=== PATIENT | male | born 1945 | race Caucasian/White ===

== ENCOUNTER 2021-08-12 02:47 | Observation (INO) | payer MEDICARE ==
--- NOTE | 2021-08-12 03:22 | ED ---
Back Pain HPI - General Chief Complaint: Back Pain/Injury Stated Complaint: Back pain Time Seen by Provider: 08/12/21 03:04 Source: patient, RN notes reviewed - History of Present Illness Initial Comments: This is a pleasant 76-year-old male presents to the emergency department complaining of left low back and hip pain which radiates into the left leg. This going on for over one month. Patient was initially seen at [facility] and a computed tomography scan and plain x-rays were ordered. He states that they apparently thought the prominence in the area. Patient was given a course of corticosteroids. Patient states she was on those for 3 days then became disoriented and had blood sugars in the 600s. Patient was taken back to [facility]. Patient states this was squared away but now he still has the pain in his left low back radiating into left leg. Patient states it seems to wrap around the leg is related to movement, alleviated by rest. Patient has been taking hydrocodone/acetaminophen, 7.5/325 at home. He states he was given this by the orthopedic PA at orthopedic [facility]. Patient had an evaluation there. It was felt that the patient's pain was due to lumbar radiculopathy. Has an appointment for an MRI on . He has an appointment with Dr. Kingsley on Friday. Patient previously has had back surgery by Dr. Kingsley. Patient is able to ambulate with a walker. He denies any pounds of balance urination. Eating and drinking normally. No fever. No direct trauma. Patient states that the pain became worse over the past few days. Patient st ates that the pain medication at home didn't seem to be controlling it. No headache, no fever or chills, no changes in vision or hearing, no sore throat or difficulty with speech, no neck pain, no chest pain or shortness of breath, no abdominal pain, no nausea or vomiting, no changes in urination or bowel movements, no numbness or tingling, no extremity pain, no skin rashes or lesions . MD Complaint: back pain - Related Data Home Medications Medication Instructions Recorded Confirmed Multivitamin [Men's Multi-Vitamin] 1 tab PO DAILY 08/12/13 08/12/21 Ascorbic Acid [Vitamin C] 1,000 mg PO DAILY 08/12/21 08/12/21 HYDROcodone/APAP 7.5-325MG [[place] 1 tab PO Q6H PRN 08/12/21 08/12/21 7.5-325] Insulin Aspart [NovoLOG Flexpen] See Protocol SQ AC-TID 08/12/21 08/12/21 Insulin Glargine,Hum.rec.anlog 6 unit SQ HS 08/12/21 08/12/21 [Lantus Solostar Pen] glipiZIDE XL [Glucotrol Xl] 10 mg PO BID 08/12/21 08/12/21 metFORMIN HCL [Glucophage] 500 mg PO TID 08/12/21 08/12/21 Allergies Allergy/AdvReac Type Severity Reaction Status Date / Time No Known Allergies Allergy Verified 08/12/21 12:39 Review of Systems ROS Statement: Those systems with pertinent positive or pertinent negative responses have been documented in the HPI. ROS Other: All systems not noted in ROS Statement are negative. Past Medical History Past Medical History: Asthma, Coronary Artery Disease (CAD), CVA/TIA, Diabetes Mellitus, Hyperlipidemia, Hypertension, Myocardial Infarction ([place]), Syncope Additional Past Medical History / Comment(s): Possible Tia Last Myocardial Infarction Date:: PT STATES DR CHUN THINKS HE HAD A RECENT [place] History of Any Multi-Drug Resistant Organisms: None Reported Past Surgical History: Back Surgery, Heart Catheterization With Stent Additional Past Surgical History / Comment(s): Metal Jerzy in Back Past Anesthesia/Blood Transfusion Reactions: No Reported Reaction Date of Last Stent Placement:: 08/13/2013 Past Psychological History: No Psychological Hx Reported Past Alcohol Use History: None Reported Past Drug Use History: None Reported - Past Family History Father Family Medical History: AICD/Pacemaker, Congestive Heart Failure (CHF) General Exam - General Exam Comments Initial Comments: Patient no significant distress at the time I am seeing him. It does not appear to be ill or toxic. General appearance: alert, in no apparent distress Head exam: Present: atraumatic, normocephalic, normal inspection Eye exam: Present: normal appearance, PERRL, EOMI. Absent: scleral icterus, conjunctival injection, periorbital swelling ENT exam: Present: normal exam, normal oropharynx, mucous membranes moist Neck exam: Present: normal inspection, full ROM. Absent: tenderness, meningismus, lymphadenopathy Respiratory exam: Present: normal lung sounds bilaterally. Absent: respiratory distress, wheezes, rales, rhonchi, stridor, chest wall tenderness, accessory muscle use Cardiovascular Exam: Present: regular rate, normal rhythm, normal heart sounds. Absent: systolic murmur, diastolic murmur, rubs, gallop, clicks GI/Abdominal exam: Present: soft, normal bowel sounds. Absent: distended, tenderness, guarding, rebound, rigid Extremities exam: Present: normal inspection, full ROM, normal capillary refill, other (No evidence of vascular insult. Pulses are intact. Capillary refill is normal.). Absent: tenderness, pedal edema, joint swelling, calf tenderness Back exam: Present: normal inspection, tenderness (Minimal left lumbar paraspinal tenderness. No erythema. No break in skin integrity. No rash or lesion.), paraspinal tenderness, other (Straight leg raise is positive at 30 on the left. DTRs are intact. Great toe extensor strength intact.). Absent: full ROM (Range of motion limited by pain.), CVA tenderness (R), CVA tenderness (L), muscle spasm, vertebral tenderness, rash noted Neurological exam: Present: alert, oriented X3, CN II-XII intact, reflexes normal, other. Absent: motor sensory deficit Psychiatric exam: Present: normal affect, normal mood Skin exam: Present: warm, dry, intact, normal color. Absent: rash, cyanosis, diaphoretic, erythema, urticaria, vesicles, petechiae, pallor, mottled, abrasion, other Course Vital Signs 08/12/21 08/12/21 02:56 04:00 Temperature 98.0 F Pulse Rate 101 H 79 Respiratory 20 18 Rate Blood Pressure 194/96 184/77 O2 Sat by Pulse 94 L 98 Oximetry Medical Decision Making - Medical Decision Making Patient septostomy most consistent with left lumbar radiculopathy, seems to be in the L4 dermatome. Sensation is intact. Patient has no saddle anesthesia. Rectal tone is adequate. Patient is able to ambulate with discomfort. Straight leg raise positive at 30 on the left. It seems as if the patient has had quite an extensive workup to include a computed tomography scan and plain film x-rays done at [facility]. Subsequently, [facility] and has an upcoming appointment on Friday with Dr. Kingsley. Patient has an MRI scheduled for Friday. Patient requesting pain control. Does not appear to be consistent with infectious etiology or cauda equina syndrome. Given the findings and presentation. I do not believe imaging is indicated at this time. the patient was given 15 mg of morphine and 4 mg of Zofran en route via EMS. Patient endorsed to the ED attending physician at 4 AM for further evaluation and disposition - Lab Data Result diagrams: 08/12/21 03:33 08/12/21 03:33 Lab Results 08/12/21 08/12/21 08/12/21 Range/Units 03:33 03:33 03:33 WBC 6.9 (3.8-10.6) k/uL RBC 3.91 L (4.30-5.90) m/uL Hgb 11.7 L (13.0-17.5) gm/dL Hct 37.7 L (39.0-53.0) % MCV 96.4 (80.0-100.0) fL MCH 30.0 (25.0-35.0) pg MCHC 31.1 (31.0-37.0) g/dL RDW 12.5 (11.5-15.5) % Plt Count 235 (150-450) k/uL MPV 7.5 Neutrophils % 80 % Lymphocytes % 12 % Monocytes % 5 % Eosinophils % 1 % Basophils % 1 % Neutrophils # 5.6 (1.3-7.7) k/uL Lymphocytes # 0.8 L (1.0-4.8) k/uL Monocytes # 0.4 (0-1.0) k/uL Eosinophils # 0.1 (0-0.7) k/uL Basophils # 0.0 (0-0.2) k/uL ESR 96 H (0-15) mm/hr Sodium 134 L (137-145) mmol/L Potassium 4.7 (3.5-5.1) mmol/L Chloride 102 (98-107) mmol/L Carbon Dioxide 28 (22-30) mmol/L Anion Gap 4 mmol/L BUN 21 H (9-20) mg/dL Creatinine 0.74 (0.66-1.25) mg/dL Est GFR (CKD-EPI)AfAm >90 (>60 ml/min/1.73 sqM) Est GFR (CKD-EPI)NonAf 89 (>60 ml/min/1.73 sqM) Glucose 252 H (74-99) mg/dL Estimated Ave Glu mg/dL [facility] Hemoglobin A1c CANCELED % Calcium 7.8 L (8.4-10.2) mg/dL Total Bilirubin 0.4 (0.2-1.3) mg/dL AST 22 (17-59) U/L ALT 19 (4-49) U/L Alkaline Phosphatase 69 (38-126) U/L C-Reactive Protein 12.0 H (<1.0) mg/dL Total Protein 6.5 (6.3-8.2) g/dL Albumin 3.2 L (3.5-5.0) g/dL Disposition Clinical Impression: Acute low back pain, Lumbar radiculopathy, Debilitated patient Disposition: ADMITTED IP TO THIS HOSP
[2021-08-12 03:52] LABS: Basophils % (A) 1 %; Eosinophils # (A) 0.1 k/uL (0-0.7); Eosinophils % (A) 1 %; HCT 37.7 % (39.0-53.0); HGB 11.7 gm/dL (13.0-17.5); Lymphocytes # (A) 0.8 k/uL (1.0-4.8); Lymphocytes % (A) 12 %; MCHC 31.1 g/dL (31.0-37.0); MCV 96.4 fL (80.0-100.0); Mean Platelet Volume 7.5; Monocytes # (A) 0.4 k/uL (0-1.0); Monocytes % (A) 5 %; Neutrophils # (A) 5.6 k/uL (1.3-7.7); Neutrophils % (A) 80 %; Platelet Count 235 k/uL (150-450); RBC 3.91 m/uL (4.30-5.90); RDW 12.5 % (11.5-15.5); WBC 6.9 k/uL (3.8-10.6)
[2021-08-12 04:33] LABS: ALT 19 U/L (4-49); AST 22 U/L (17-59); African American GFR (CKD) >90 (>60 ml/min/1.73 sqM); Albumin 3.2 g/dL (3.5-5.0); Alkaline Phosphatase 69 U/L (38-126); Anion Gap 4 mmol/L; Blood Urea Nitrogen 21 mg/dL (9-20); Calcium 7.8 mg/dL (8.4-10.2); Carbon Dioxide 28 mmol/L (22-30); Chloride 102 mmol/L (98-107); Glucose 252 mg/dL (74-99); Non-African American GFR(CKD) 89 (>60 ml/min/1.73 sqM); Potassium 4.7 mmol/L (3.5-5.1); Sodium 134 mmol/L (137-145); Total Bilirubin 0.4 mg/dL (0.2-1.3); Total Protein 6.5 g/dL (6.3-8.2)
[2021-08-12 04:51] LABS: Erythrocyte Sedimentation Rate 96 mm/hr (0-15)
[2021-08-12] MEDS ORDERED: NALOXONE 0.4 MG/ML 1 ML VIAL IV PRN ×2 (05:42→12:01)
[2021-08-12] MEDS ORDERED: ACETAMINOPHEN TAB 325 MG TAB PO PRN (05:42)
[2021-08-12] MEDS ORDERED: ONDANSETRON 4 MG/2 ML VIAL IVP PRN (05:42)
[2021-08-12] MEDS ORDERED: ALBUTEROL NEBULIZED 2.5 MG/3 ML INHALATION PRN (05:48)
[2021-08-12] MEDS: MORPHINE SULFATE 4 MG/ML SYRINGE IV PRN ×3 (07:06→22:46)
[2021-08-12 07:38] LABS: Glucose,Whole Blood 269 mg/dL (75-99)
[2021-08-12] MEDS: METOPROLOL TARTRATE 25 MG TAB PO SCH (09:04)
[2021-08-12] MEDS: ASPIRIN 81 MG PO SCH (09:04)
[2021-08-12] MEDS: CLOPIDOGREL 75 MG TAB PO SCH (09:04)
[2021-08-12] MEDS: metFORMIN 500 MG TAB PO SCH ×2 (09:04→22:09)
[2021-08-12 12:00] LABS: Glucose,Whole Blood 233 mg/dL (75-99)
--- NOTE | 2021-08-12 12:16 | P.HPIM ---
History of Present Illness H&P Date: 08/12/21 Chief Complaint: back pain 76-year-old male presents to the emergency department complaining of worsening left low back and hip pain which radiates into the left leg. This has been going on for over one month. Patient was initially seen at [facility] and a computed tomography scan and plain x-rays were ordered. Patient was given a course of corticosteroids subsequently. Patient states he was on those for 3 days then became disoriented and had blood sugars in the 600s. Patient states pain seems to wrap around the leg is related to movement, alleviated by rest. Patient has been taking hydrocodone/acetaminophen, 7.5/325 at home. He states he was given this by the orthopedic PA at orthopedic [facility]. Patient had an evaluation there. It was felt that the patient's pain was due to lumbar radiculopathy. Has an appointment for an MRI on Friday. He also has an appointment with Dr. Kingsley on Friday. Patient previously has had back surgery by Dr. Kingsley in 2008. States that he started to need a walker to ambulate. No urinary retention or incontinence, no stool incontinence. No fever. No hx of trauma. No headache, no fever or chills, no changes in vision or hearing, no sore throat or difficulty with speech, no neck pain, no chest pain or shortness of breath, no abdominal pain, no nausea or vomiting, no changes in urination or bowel movements, no numbness or tingling, no extremity pain, no skin rashes or lesions. Review of Systems complete review of system was performed, negative except for what is stated in HPI Past Medical History Past Medical History: Asthma, Coronary Artery Disease (CAD), CVA/TIA, Diabetes Mellitus, Hyperlipidemia, Hypertension, Myocardial Infarction ([place]), Syncope Additional Past Medical History / Comment(s): Possible Tia Last Myocardial Infarction Date:: PT STATES DR CHUN THINKS HE HAD A RECENT [place] History of Any Multi-Drug Resistant Organisms: None Reported Past Surgical History: Back Surgery, Heart Catheterization With Stent Additional Past Surgical History / Comment(s): Metal Jerzy in Back Past Anesthesia/Blood Transfusion Reactions: No Reported Reaction Date of Last Stent Placement:: 08/13/2013 Past Psychological History: No Psychological Hx Reported Past Alcohol Use History: None Reported Past Drug Use History: None Reported - Past Family History Father Family Medical History: AICD/Pacemaker, Congestive Heart Failure (CHF) Medications and Allergies Home Medications Medication Instructions Recorded Confirmed Type Albuterol Inhaler (Mhu) [Ventolin 2 puff INHALATION Q4HR PRN 08/12/13 08/13/13 History Hfa Inhaler (Mhu)] Aspirin 162 mg PO DAILY 08/12/13 08/13/13 History Cholecalciferol [Vitamin D3 (25 2,000 unit PO DAILY@1200 08/12/13 08/13/13 History Mcg = 1000 Iu)] Multivitamin [Men's Multi-Vitamin] 1 each PO DAILY 08/12/13 08/13/13 History Simvastatin [Zocor] 40 mg PO HS 08/12/13 08/13/13 History metFORMIN HCL [Glucophage] 1,000 mg PO BID 08/12/13 08/13/13 History Clopidogrel [Plavix] 75 mg PO DAILY #30 tab 08/14/13 Rx Metoprolol Tartrate [Lopressor] 12.5 mg PO DAILY #30 tab 08/14/13 Rx Nitroglycerin Sl Tabs [Nitrostat] 0.4 mg SUBLINGUAL Q5M PRN #25 tab 08/14/13 Rx Allergies Allergy/AdvReac Type Severity Reaction Status Date / Time No Known Allergies Allergy Verified 08/13/13 06:31 Physical Exam Vitals: Vital Signs Temp Pulse Resp BP Pulse Ox 08/12/21 04:00 79 18 184/77 98 08/12/21 02:56 98.0 F 101 H 20 194/96 94 L Intake and Output 08/11/21 08/12/21 08/12/21 22:59 06:59 14:59 Other: # Voids 2 Weight 105.233 kg Constitutional: No acute distress, conversant, pleasant Eyes:Anicteric sclerae, moist conjunctiva, no lid-lag, PERRLA, ENMT: Oropharynx clear, no erythema, exudates Neck: Supple, FROM, no masses, or JVD, No carotid bruits, No thyromegaly Lungs: Clear to auscultation, Clear to percussion, Normal respiratory effort, no accessory muscle use Cardiovascular: Heart regular in rate and rhythm, No murmurs, gallops, or rubs, No peripheral edema Abdominal: Soft, Nontender, no guarding, rebound or rigidity, Normoactive bowel sounds, No hepatomegaly, No splenomegaly, No palpable mass Skin: Normal temperature, tone, texture, turgor, no induration, No subcutaneous nodules, No rash, lesions, No ulcers Extremities: severe pain in the left lower back with any left leg movement. No digital cyanosis, No clubbing, Pedal pulses intact and symmetrical, Radial pulses intact and symmetrical, No calf tenderness Psychiatric: Alert and oriented to person, place and time, appropriate affect, intact judgement Neuro: Muscles Strength 5/5 in all 4 extremities, Sensation to light touch grossly present throughout, Cranial nerves II-XII grossly intact, no focal sensory deficits Results CBC & Chem 7: 08/12/21 03:33 08/12/21 03:33 Labs: Abnormal Lab Results - Last 24 Hours (Table) 08/12/21 08/12/21 Range/Units 03:33 03:33 RBC 3.91 L (4.30-5.90) m/uL Hgb 11.7 L (13.0-17.5) gm/dL Hct 37.7 L (39.0-53.0) % Lymphocytes # 0.8 L (1.0-4.8) k/uL ESR 96 H (0-15) mm/hr Sodium 134 L (137-145) mmol/L BUN 21 H (9-20) mg/dL Glucose 252 H (74-99) mg/dL Calcium 7.8 L (8.4-10.2) mg/dL C-Reactive Protein 12.0 H (<1.0) mg/dL Albumin 3.2 L (3.5-5.0) g/dL Assessment and Plan Plan: Intractable low back pain Continue home kimberly for now MRI lumbar spine X ray of the left hip Ortho consult DM 2 SSI Continue meds Check A1c Chronic Coronary Artery Disease (CAD), Hyperlipidemia, Hypertension Stable resume meds Admit to observation
--- NOTE | 2021-08-12 13:08 | XR ---
EXAMINATION TYPE: XR Hip Complete LT DATE OF EXAM: 08/12/2021 COMPARISON: None HISTORY: Pain TECHNIQUE: 2 view left hip FINDINGS: Femoral head articulates with the acetabulum. Joint space appears preserved. Some minimal f emoral head spurring may be present. No acute fractures or dislocations are evident. IMPRESSION: 1. Suggesting a minimal degenerative change left hip. 2. No acute osseous abnormality. 3. Follow up exams can be performed 7-10 days from acute trauma for continued pain.
[2021-08-12] MEDS: INSULIN ASPART (NovoLOG) 100 UNIT/ML VIAL SQ SCH ×3 (13:18→22:09)
[2021-08-12] MEDS: CHOLECALCIFEROL 25 MCG (1000 IU) TABLET PO SCH (13:18)
[2021-08-12 16:02] LABS: Estimated Average Glucose UNC
[2021-08-12 16:49] LABS: Glucose,Whole Blood 143 mg/dL (75-99)
[2021-08-12 20:56] LABS: Glucose,Whole Blood 236 mg/dL (75-99)
[2021-08-12] MEDS: ATORVASTATIN 20 MG TAB PO SCH (22:09)
[2021-08-12] MEDS: INSULIN DETEMIR (LEVEMIR) 100 UNIT/ML SYR SQ SCH (22:09)
[2021-08-13] MEDS: MORPHINE SULFATE 4 MG/ML SYRINGE IV PRN (02:45)
[2021-08-13 07:00] LABS: Glucose,Whole Blood 129 mg/dL (75-99)
[2021-08-13] MEDS: ASPIRIN 81 MG PO SCH (07:50)
[2021-08-13] MEDS: metFORMIN 500 MG TAB PO SCH (07:50)
[2021-08-13] MEDS: CLOPIDOGREL 75 MG TAB PO SCH (07:51)
[2021-08-13] MEDS: METOPROLOL TARTRATE 25 MG TAB PO SCH (07:51)
[2021-08-13] MEDS: INSULIN ASPART (NovoLOG) 100 UNIT/ML VIAL SQ SCH ×4 (09:33→21:38)
--- NOTE | 2021-08-13 10:02 | P.CNOR ---
History of Present Illness - [facility] Consult date: 08/13/21 Requesting physician: Haider Welch Consult reason: low back pain, other (Left lower extremity radiculopathy) History of present illness: Patient is a very pleasant 76-year-old male who is seen and examined at bedside for further evaluation of his lumbar spine and left lower extremity radiculopathy. He states over the past 6 weeks he has had pain radiating from his lumbar spine, over the left hip, down the anterior thigh, down the anterior lower extremity. This pain also goes down his posterior lower extremity. He states sometimes he has some pain over the right anterior thigh as well. He has some pain and weakness with trying to perform hip flexion and knee extension on the left. He currently has some swelling in the bilateral lower extremities. He denies any injuries. He was recently seen and evaluated at our office at [facility] for his left hip. MRI imaging of his lumbar spine was ordered at that time and he was referred for further evaluation. He was set to have his MRI this Friday and to follow us in the office for evalua tion this coming Friday. His symptoms became severe and he presented to [facility] for further evaluation. Recently he was placed on steroid medication which significantly exacerbated his glucose levels. He does have a history of previous lumbar fusion surgery performed by Dr. Kingsley in 2008. He has not had any imaging yet during this admission. There is no imaging [facility]. Lumbar MRI scheduled for later today. He is being seen and examined by medicine for his other medical diagnoses including coronary artery disease, history of CVA/TIA, diabetes mellitus, hyperlipidemia, hypertension, history of myocardial infarction, and obesity. Patient states he is eating and voiding without any significant difficulty. Past Medical History Past Medical History: Asthma, Coronary Artery Disease (CAD), CVA/TIA, Diabetes Mellitus, Hyperlipidemia, Hypertension, Myocardial Infarction ([place]), Syncope Additional Past Medical History / Comment(s): Possible Tia Last Myocardial Infarction Date:: PT STATES DR CHUN THINKS HE HAD A RECENT [place] History of Any Multi-Drug Resistant Organisms: None Reported Past Surgical History: Back Surgery, Heart Catheterization With Stent Additional Past Surgical History / Comment(s): Metal Jerzy in Back Past Anesthesia/Blood Transfusion Reactions: No Reported Reaction Date of Last Stent Placement:: 08/13/2013 Past Psychological History: No Psychological Hx Reported Past Alcohol Use History: None Reported Past Drug Use History: None Reported - Past Family History Father Family Medical History: AICD/Pacemaker, Congestive Heart Failure (CHF) Medications and Allergies Home Medications Medication Instructions Recorded Confirmed Type Multivitamin [Men's Multi-Vitamin] 1 tab PO DAILY 08/12/13 08/12/21 History Ascorbic Acid [Vitamin C] 1,000 mg PO DAILY 08/12/21 08/12/21 History HYDROcodone/APAP 7.5-325MG [[place] 1 tab PO Q6H PRN 08/12/21 08/12/21 History 7.5-325] Insulin Aspart [NovoLOG Flexpen] See Protocol SQ AC-TID 08/12/21 08/12/21 History Insulin Glargine,Hum.rec.anlog 6 unit SQ HS 08/12/21 08/12/21 History [Lantus Solostar Pen] glipiZIDE XL [Glucotrol Xl] 10 mg PO BID 08/12/21 08/12/21 History metFORMIN HCL [Glucophage] 500 mg PO TID 08/12/21 08/12/21 History Allergies Allergy/AdvReac Type Severity Reaction Status Date / Time No Known Allergies Allergy Verified 08/12/21 12:39 Physical Examination Physical exam: Patient is awake, alert, and oriented 3 Vital signs stable Good chest excursion with deep inspiration and expiration Examination of lumbar spine reveals skin is intact with no abrasions, lacerations, or bruises; no erythema, purulence or signs of infection Evidence of a large well-healed midline incision of the lumbar spine Dorsiflexion, plantarflexion, and extensor hallucis longus positive sustained bilaterally Patient has difficulty performing hip flexion and knee extension on the left Patellar reflex 0+ bilaterally and Achilles reflexes 0+ bilaterally No lower extremity hyperreflexia bilaterally Evidence of 1+ edema of the bilateral lower extremities No signs or symptoms of DVT; no calf pain No pain with internal and external rotation of the hips bilaterally Neurovascularly intact Results - Labs Labs: Abnormal Lab Results - Last 24 Hours (Table) 08/12/21 08/12/21 08/12/21 Range/Units 11:58 16:46 20:55 POC Glucose (mg/dL) 233 H 143 H 236 H (75-99) mg/dL 08/13/21 Range/Units 06:58 POC Glucose (mg/dL) 129 H (75-99) mg/dL H & H 08/12/21 Range/Units 03:33 Hgb 11.7 L (13.0-17.5) gm/dL Hct 37.7 L (39.0-53.0) % Result Diagrams: 08/12/21 03:33 08/12/21 03:33 Assessment and Plan Assessment: Assessment: Acute low back pain over the past 6 weeks Left lower extremity radiculopathy Left lower extremity weakness with hip flexion and knee extension Bilateral lower extremity swelling History of lumbar fusion performed in 2008 Coronary artery disease History of CVA/TIA Diabetes mellitus Hyperlipidemia Hypertension History of myocardial infarction Obesity (1) History of lumbar fusion Current Visit: Yes Status: Acute Code(s): Z98.1 - ARTHRODESIS STATUS SNOMED Code(s): 04004067737767 (2) Weakness of left lower extremity Current Visit: Yes Status: Acute Code(s): R29.898 - OTH SYMPTOMS AND SIGNS INVOLVING THE MUSCULOSKELETAL SYSTEM SNOMED Code(s): 860399345 (3) Swelling of lower extremity Current Visit: Yes Status: Acute Code(s): M79.89 - OTHER SPECIFIED SOFT TISSUE DISORDERS SNOMED Code(s): 058327497 (4) Coronary artery disease Current Visit: Yes Status: Acute Code(s): I25.10 - ATHSCL HEART DISEASE OF [place] CORONARY ARTERY W/O ANG PCTRS SNOMED Code(s): 36733060 (5) Diabetes mellitus Current Visit: Yes Status: Acute Code(s): E11.9 - TYPE 2 DIABETES MELLITUS WITHOUT COMPLICATIONS SNOMED Code(s): 99331618 (6) Hypertension Current Visit: Yes Status: Acute Code(s): I10 - ESSENTIAL (PRIMARY) HYPERTENSION SNOMED Code(s): 93202356 (7) Hyperlipidemia Current Visit: Yes Status: Acute Code(s): E78.5 - HYPERLIPIDEMIA, UNSPECIFIED SNOMED Code(s): 07045892 (8) History of myocardial infarction Current Visit: Yes Status: Acute Code(s): I25.2 - OLD MYOCARDIAL INFARCTION SNOMED Code(s): 449474111 (9) History of CVA (cerebrovascular accident) Current Visit: Yes Status: Acute Code(s): Z86.73 - PRSNL HX OF TIA (TIA), AND CEREB INFRC W/O RESID DEFICITS SNOMED Code(s): 354287629 (10) Obesity (BMI 30.0-34.9) Current Visit: Yes Status: Acute Code(s): E66.9 - OBESITY, UNSPECIFIED SNOMED Code(s): 286784791663649 (11) Acute low back pain Current Visit: Yes Status: Acute Code(s): M54.50 - LOW BACK PAIN, UNSPECIFIED SNOMED Code(s): 011467260 (12) Lumbar radiculopathy Current Visit: Yes Status: Acute Code(s): M54.16 - RADICULOPATHY, LUMBAR REGION SNOMED Code(s): 661978341 Plan: Plan: 1. Patient has been experiencing increased low back pain with left lower extremity radiculopathy and weakness with some right lower extremity radiculopathy over the past 6 weeks without injury. He is had difficulty with pain control and some difficulty ambulation due to his pain. Patient has a his tory of previous lumbar fusion performed in 2008. He is currently scheduled for an MRI of lumbar spine to be performed today. There are reports that there was previous imaging taken at another facility but this imaging is not available for review. He'll plan to proceed forward with the MRI as scheduled. We will also plan to obtain x-ray imaging of the lumbar spine for further evaluation. We also discussed that he may benefit from consultation with pain management. He would be willing to discuss the possibility of injections or treatment with pain management. We will plan for this consultation. We discussed we'll plan follow the patient up for further evaluation following his MRI imaging x-ray imaging to discuss further treatment options. Currently, we will plan to continue with conservative treatment and try to avoid further surgical intervention. Patient feels this is a good plan of care. 2. Patient will continue be seen and examined by medicine for his other medical diagnoses Time with Patient: Greater than 30 (Including obtaining history, physical examination, reviewing of imaging, and dictation.)
--- NOTE | 2021-08-13 11:03 | XR ---
EXAMINATION TYPE: XR lumbar spine 2 or 3V DATE OF EXAM: 08/13/2021 CLINICAL HISTORY: pain TECHNIQUE: Three views of the lumbar spine are submitted. COMPARISON: None. FINDINGS: There are 5 lumbar type vertebral bodies identified. The lumbar spine shows satisfactory alignment w ithout evidence of acute fracture or dislocation. Vertebral body heights are within normal limits. [place] multilevel degenerative disc disease. Postoperative fusion changes at L4-5. Intervertebral disc spacers in place. The overlying soft tissue appears unremarkable. IMPRESSION: No acute fracture or dislocation is seen in the lumbar spine. ICD 10 NO FRACTURE, INITIAL EVALUATION
--- NOTE | 2021-08-13 11:13 | MR ---
EXAMINATION TYPE: MR lumbar spine wo con DATE OF EXAM: 08/13/2021 COMPARISON: X-ray 08/13/2021 HISTORY: Low back pain, leg weakness TECHNIQUE: T1 and T2 axial and sagittal images of the lumbar spine are submitted. FINDINGS: There is extreme patient motion artifact particularly on the axial view is resulting in non diagnostic assessment At L1-2 there is nondiagnostic due to motion artifact. Suspect a sagittal disc bulge. At L2-3 there is nondiagnostic due to motion artifact. Suspect degree of facet arthropathy and a sagi ttal disc bulging or herniation. Could not exclude canal stenosis and suspected bilateral foraminal e ncroachment. Discogenic marrow changes are seen with severe degenerative disc disease. At L3-4 there is facet arthropathy and degenerative disc disease with broad-based disc protrusion. As sessment is nearly nondiagnostic due to motion artifact. Suspect significant canal stenosis and bilat eral foraminal encroachment. At L4-5 there is postsurgical changes with increased signal involving the disc space on both T1 and T 2 levels. There is low signal seen posterior to disc space measuring 7 mm. Difficult to determine if this is related to residual disc herniation or small herniation. There is effacement of thecal sac. C ould not exclude mild foraminal encroachment due to limitation of the exam. At L5-S1 there is facet arthropathy and degenerative disc disease with no obvious disc herniation or foraminal encroachment. Markedly limited due to motion artifact. Assessment spinal cord nondiagnostic due to motion artifact. Paraspinal soft tissue structures also n ondiagnostic. Aorta grossly normal caliber. IMPRESSION: 1. Nearly nondiagnostic exam due to extreme motion artifact. Assessment spinal cord nondiagnostic. 2. Postsurgical change L4-L5. There is low signal seen and T2 imaging immediately posterior to the di sc space which could be postsurgical or represent small residual disc fragment or herniation. 3. Despite this severe limitation exam there appears to be Degenerative disc disease L2-3 and L3-L4 w ith disc protrusion or herniation resulting in significant canal stenosis and bilateral foraminal enc roachment. 4. Given the marked limitation the exam due to motion consider follow-up CT scan for further evaluati on. If there is concern for discitis consider contrast-enhanced exam.
[2021-08-13] MEDS ORDERED: ALBUTEROL NEBULIZED 2.5 MG/3 ML INHALATION STA (11:34)
[2021-08-13 11:57] LABS: Glucose,Whole Blood 222 mg/dL (75-99)
[2021-08-13] MEDS: CHOLECALCIFEROL 25 MCG (1000 IU) TABLET PO SCH (12:24)
--- NOTE | 2021-08-13 15:18 | P.PN ---
Subjective Patient was examined at bedside today continues complain of intractable pain. Pain is predominantly on the site. Slightly going on for the past 4-5 weeks denies any falls or trauma. He does have some burning sensation. MRI was completed pending further recommendations from orthopedic service. Case discussed with RN present at bedside. Patient denied any shortness of breath however was having mild wheezing on examination Objective - Vital Signs Vital signs: Vital Signs Temp 98.2 F 08/13/21 13:49 Pulse 64 08/13/21 13:49 Resp 16 08/13/21 13:49 BP 159/70 08/13/21 13:49 Pulse Ox 96 08/13/21 13:49 Intake & Output 08/12/21 08/13/21 08/13/21 18:59 06:59 18:59 Intake Total 420 480 Balance 420 480 Intake: Oral 420 480 Other: # Voids 4 2 1 # Bowel Movements 1 0 - Exam Constitutional: No acute distress, conversant, pleasant Eyes:Anicteric sclerae, moist conjunctiva, no lid-lag, PERRLA, ENMT: Oropharynx clear, no erythema, exudates Neck: Supple, FROM, no masses, or JVD, No carotid bruits, No thyromegaly Lungs: Bilateral air entry, some very minimal wheezing noted however very comfortable. Cardiovascular: Heart regular in rate and rhythm, No murmurs, gallops, or rubs, No peripheral edema Abdominal: Soft, Nontender, no guarding, rebound or rigidity, Normoactive bowel sounds, No hepatomegaly, No splenomegaly, No palpable mass Skin: Normal temperature, tone, texture, turgor, no induration, No subcutaneous nodules, No rash, lesions, No ulcers Extremities: severe pain in the left lower back with any left leg movement. No digital cyanosis, No clubbing, Pedal pulses intact and symmetrical, Radial pulses intact and symmetrical, No calf tenderness Psychiatric: Alert and oriented to person, place and time, appropriate affect, intact judgement Neuro: Muscles Strength 5/5 in all 4 extremities, Sensation to light touch grossly present throughout, Cranial nerves II-XII grossly intact, no focal sensory deficits - Labs CBC & Chem 7: 08/12/21 03:33 08/12/21 03:33 Labs: Abnormal Lab Results - Last 24 Hours (Table) 08/12/21 08/12/21 08/13/21 Range/Units 16:46 20:55 06:58 POC Glucose (mg/dL) 143 H 236 H 129 H (75-99) mg/dL 08/13/21 Range/Units 11:53 POC Glucose (mg/dL) 222 H (75-99) mg/dL Assessment and Plan Plan: Assessment: #1 intractable lower back pain #2 diabetes mellitus type 2 #3 coronary disease #4 hyperlipidemia #5 essential hypertension Plan: -Admit to medicine for close monitoring -Aspiration/fall precaution -MRI to be reviewed with orthopedic -Pain control when necessary -PT/OT -We'll add albuterol for shortness of breath and reevaluate. Administer albuterol inhaler/nebulizer onetime renal case discussed with RN. -Metformin held while inpatient -Continue with low-dose sliding scale -Due to prophylaxis Lovenox
[2021-08-13] MEDS ORDERED: KETOROLAC 15 MG/ML 1 ML VIAL IM PRN (15:20)
--- NOTE | 2021-08-13 15:22 | P.CON ---
Consult Note - . Consult date: 08/13/21 Assessment/Plan:: HISTORY OF PRESENT ILLNESS: 76 yr old male inpatient admitted on 08/12/21 with intractable LBP with LLE pain as a referral from Dr Kingsley presents today for evaluation. Pt stated he's had LBP for the last several weeks, and with his MRI Lumbar spine ordered, he could no longer withstand the pain and needed to be evaluated in the ER. He states he has 9/10 in intensity LBP, dull & achy in character with sharp, shooting pain towards the left hip and LLE. As he stated this, he was seated up in a chair and having his blood pressure checked by a nurse at his side. He was not in acute distress. He states pain shoots mostly towards his anterior left thigh and occasionally to his right thigh. Pa in is provoked with any type of movement. He even wakes up in the middle of the night in intractable pain and is unable to fall back asleep. Pain is relieved with medications. He is disinterested in epidural injections or nerve blocks, stating "I don't want any shots. I want to manage this with a one time thing." Past Medical History: Asthma, Coronary Artery Disease (CAD), CVA/TIA, Diabetes Mellitus, Hyperlipidemia, Hypertension, Myocardial Infarction (OR), Syncope Past Surgical History: Lumbar Surgery with hardware placement, Heart Cat heterization With Stent (last in 2013) Social History: Negative x 3 Family History: Father- AICD/Pacemaker, Congestive Heart Failure (CHF) All: NKDA Meds: See list REVIEW OF ORGAN SYSTEMS: CONSTITUTIONAL: No fevers or chills. No recent weight loss. HEENT: No visual acuity loss, eye pain, difficulties with hearing. No nosebleeds. No difficulty swallowing. RESPIRATORY: Denies any troubles with breathing or dyspnea on exertion. CARDIOVASCULAR: Denies any chest pain, palpitations, or recent heart attacks. GASTROINTESTINAL: Denies fatty food intolerance. Has change in bowel habits and gas bloat. GENITOURINARY: Denies any blood in urine. Has increased urinary frequency. NEUROLOGICAL: + numbness and tingling along the distal extremities. No seizure disorders or headaches. MUSCULOSKELETAL: + back pain SKIN: No skin cancer. No rash. PSYCHIATRIC: Denies current depression or suicidal thoughts. ENDOCRINE: Denies current thyroid disorders. Denies any blood sugar glucose intolerance. HEME/LYMPHATIC: Denies any lumps and bumps around the neck. History of deep venous thrombosis. ALLERGY/IMMUNOLOGY: No immunoglobulin therapy. No immune deficiencies. BREAST: Denies current breast lumps, pain or nipple discharge. Physical Examinations : Constitutional : Cooperative , not in acute distress . HEENT: Neck supple. No Lymphadenopathy. Normal thyroid size . Eyes no ptosis , no icterus, no photophobia . Hearing intact. Normal oropharynx. No Thrush. Respiratory : Chest clear to auscultations bilaterally. No wheezing. No rhonchi. Cardiovascular : Regular rate and rhythm , S1 / S2. No S3 . No S4. Gastrointestinal : Abdomen soft. No tenderness. Bowel sounds x 4. No organomegaly . Genitourinary : Deferred. Neurologic : Cranial nerve II to XII intact. No focal neurological deficits. Psychiatric : alert & oriented x 3. Matching mood & appropriate affect. Judgment & insight intact. Lymphatic No Lymphadenopathy. Musculoskeletal : Cervical Spine Motor strength in the deltoid and biceps: Normal right side. Normal Left side Motor strength biceps and the wrist extensors: Normal right side . Normal left side Motor strength in the triceps muscle: Normal right side. Normal left side Deep tendon reflexes: Normal at the biceps. Normal at Brachioradialis. Normal at triceps Cervical facet loading test: positive bilaterally Spurling test: positive bilaterally Neck distraction test: positive bilaterally Marcelina sign: positive bilaterally Lumbar spine Motor strength lower extremities ,thigh and legs 5/5 Right side , 5/5 Left side Deep tendon reflexes : Normal Knee Jerk. Normal Ankle Jerk Vertebral body tenderness over L4, L5, S1 Lumbar facet Loading Test: positive Right / positive Left Range of motion of the lumbar spine Flexion 30 degrees, extension <10 degrees Straight Leg Raise test: Left/ Right positive at 30 degrees Alexandra test: positive right / positive left. Severe tenderness over the Sacroiliac joint on the Right / Left sides Gaenslen test: positive bilaterally Seated flexion test: positive L>R Imaging: X-ray Lumbar spine reviewed 08/12/2021 Awaiting results of the MRI without contrast of the Lumbar spine 08/13/2021 Assessment/ Plan : Pt stated he is not interested in "shots" to manage his pain. He stated that with his pain and LLE weakness, that he's more interested in "a one time thing" to manage his radiculopathy. At the time of examination, MRI of the Lumbar spine was completed 30 minutes prior, but no report was available to view. Speaking to [facility], TYSON Waters, that imaging was not available to view, nor was the patient considered an acute surgical case. He has an order for Morphine Sulfate 4mg IVP q4h prn pain already on file. Will conjunctively manage the pain with Toradol IVP 15mg/1mL q6h prn pain. Patient may follow up at the Pain Clinic on an outpatient basis if he decides to explore his pain management options. All questions answered. I have spent greater than 50 minutes on patient care today. Dr Rivera was available by phone for the evaluation of this patient. The time was used to review the medical records including relevant urine studies and Prescription history (MAPs), review of the available imaging, evaluation and examination of the patient, coordination of care with the medical staff and if applicable referring physicians, as well as creation of the medical record PQRS Measure Charge Sheet - Pain Location Back Pharmacological Interventions: PRN Medication Pain Comment: See MAR for pain assessment PQRS Narrative: Smoking Status Light tobacco smoker Blood Pressure [Left Arm] 159/70 Blood Pressure [Right Arm 182/64 Supine] Blood Pressure 184/77 Pain Intensity [Back] 6 Pain Intensity 0 Pain Scale Used Non Verbal Pain Indicator Scale Used Numeric (1 - 10) Home Medications: Ambulatory Orders Multivitamin [Men's Multi-Vitamin] 1 tab PO DAILY 08/12/13 Ascorbic Acid [Vitamin C] 1,000 mg PO DAILY 08/12/21 HYDROcodone/APAP 7.5-325MG [Hamilton 7.5-325] 1 tab PO Q6H PRN 08/12/21 Insulin Aspart [NovoLOG Flexpen] See Protocol SQ AC-TID 08/12/21 Insulin Glargine,Hum.rec.anlog [Lantus Solostar Pen] 6 unit SQ HS 08/12/21 glipiZIDE XL [Glucotrol Xl] 10 mg PO BID 08/12/21 metFORMIN HCL [Glucophage] 500 mg PO TID 08/12/21
[2021-08-13 16:42] LABS: Glucose,Whole Blood 231 mg/dL (75-99)
[2021-08-13 18:08] LABS: Basophils # (A) 0.04 X 10*3/uL (0.00-0.10); Basophils % (A) 0.6 %; Eosinophils # (A) 0.15 X 10*3/uL (0.04-0.35); Eosinophils % (A) 2.2 %; HCT 37.8 % (39.6-50.0); HGB 11.9 g/dL (13.0-17.0); Immature Grans, Automated 0.4 %; Lymphocytes # (A) 1.21 X 10*3/uL (0.90-5.00); Lymphocytes % (A) 17.9 %; MCH 30.1 pg (27.0-32.0); MCHC 31.5 g/dL (32.0-37.0); MCV 95.5 fL (80.0-97.0); Monocytes # (A) 0.45 X 10*3/uL (0.20-1.00); Monocytes % (A) 6.7 %; NRBC Per 100 WBC 0 /100 WBCS (0.0-0.0); Neutrophils # (A) 4.87 X 10*3/uL (1.80-7.70); Neutrophils % (A) 72.2 %; Platelet Count 289 X 10*3/uL (140-440); RBC 3.96 X 10*6/uL (4.40-5.60); RDW 12.3 % (11.5-14.5); WBC 6.75 X 10*3/uL (4.50-10.00)
[2021-08-13 18:54] LABS: African American GFR (CKD) 102.3 (60.0-200.0); BUN/Creat Ratio 24.9 Ratio (12.00-20.00); Blood Urea Nitrogen 18.8 mg/dL (9.0-27.0); Calcium 8.8 mg/dL (8.7-10.3); Carbon Dioxide 26.7 mmol/L (20.0-27.5); Non-African American GFR(CKD) 88.2 (60.0-200.0); Potassium 4.3 mmol/L (3.5-5.5)
[2021-08-13 20:22] LABS: Glucose,Whole Blood 212 mg/dL (75-99)
[2021-08-13] MEDS: ATORVASTATIN 20 MG TAB PO SCH (21:38)
[2021-08-13] MEDS: INSULIN DETEMIR (LEVEMIR) 100 UNIT/ML SYR SQ SCH (21:38)
[2021-08-14 07:25] LABS: Glucose,Whole Blood 191 mg/dL (75-99)
[2021-08-14] MEDS: INSULIN ASPART (NovoLOG) 100 UNIT/ML VIAL SQ SCH ×4 (07:55→20:47)
[2021-08-14] MEDS: ASPIRIN 81 MG PO SCH (07:56)
[2021-08-14] MEDS: CLOPIDOGREL 75 MG TAB PO SCH (07:56)
[2021-08-14] MEDS: METOPROLOL TARTRATE 25 MG TAB PO SCH (07:56)
[2021-08-14] MEDS: ENOXAPARIN 40 MG/0.4 ML SYRINGE SQ SCH (07:57)
[2021-08-14] MEDS: MORPHINE SULFATE 4 MG/ML SYRINGE IV PRN ×2 (07:57→20:46)
--- NOTE | 2021-08-14 09:08 | P.PN ---
Progress Note - Text Progress Note Date: 08/14/21 Orthopedic spine: History of present illness: Patient is a very pleasant 76-year-old male who is seen and examined at bedside for follow-up evaluation of his lumbar spine and left lower extremity radiculopathy. He has not had any change in his symptoms since being seen and examined yesterday. He states over the past 6 weeks he has had pain radiating from his lumbar spine, over the left hip, down the anterior thigh, down the anterior lower extremity. This pain also goes down his posterior lower extremity. He states sometimes he has some pain over the right anterior thigh as well. He has some pain and weakness with trying to perform hip flexion and knee extension on the left. He currently has some swelling in the bilateral lower extremities. He denies any injuries. He was recently seen and evaluated at our office at [facility] for his left hip. MRI imaging of his lumbar spine was ordered at that time and he was referred for further evaluation. He was set to have his MRI this Friday and to follow us in the office for evaluation this coming Friday. His symptoms became severe and he presented to [facility] for further evaluation. Recently he was placed on steroid medication which significantly exacerbated his glucose levels. He does have a history of previous lumbar fusion surgery performed by Dr. Kingsley in 2008. Seen and examined yesterday he has had lumbar MRI imaging and x-ray imaging performed. He is also been seen by pain management. After further discussion with him he states he declined proceeding forward with injection yesterday. He states his daughter, who lives in [place], underwent brain surgery yesterday for tumor resection and states the tumor was found to be malignant. He is unsure if he may need to move at some point to [place] to help care for his grandchildren. After further consideration, he would be willing to discuss injections with pain management during his admission to the hospital. He is being seen and examined by medicine for his other medical diagnoses including coronary artery disease, history of CVA/TIA, diabetes mellitus, hyperlipidemia, hypertension, history of myocardial infarction, and obesity. Patient states he is eating and voiding without any significant difficulty. Physical exam: Patient is awake, alert, and oriented 3 Vital signs stable Good chest excursion with deep inspiration and expiration Examination of lumbar spine reveals skin is intact with no abrasions, lacerations, or bruises; no erythema, purulence or signs of infection Evidence of a large well-healed midline incision of the lumbar spine Dorsiflexion, plantarflexion, and extensor hallucis longus positive sustained bilaterally Patient has difficulty performing hip flexion and knee extension on the left Patellar reflex 0+ bilaterally and Achilles reflexes 0+ bilaterally No lower extremity hyperreflexia bilaterally Evidence of 1+ edema of the bilateral lower extremities No signs or symptoms of DVT; no calf pain No pain with internal and external rotation of the hips bilaterally Neurovascularly intact Pertinent studies: MRI of the lumbar spine taken on 08/13/2021: L2-3 severe degenerative disc disease, herniated nucleus pulposus, and facet arthropathy resulting in severe central canal stenosis and severe bilateral neural foraminal stenosis greater on the left and right; L3-4 degenerative disc disease, herniated nucleus pulposus, and facet arthropathy resulting in moderate central canal stenosis and bilateral neural foraminal stenosis; L4-5 evidence of retained hardware which appears to be in good alignment and good position X-rays of the lumbar spine taken on 08/13/2021: L2-3 severe degenerative disease with large anterior and left osteophytic spurring; evidence of retained hardware on the right at L4-5 and which retained pedicle screws, rods and interbody device good alignment and position Assessment: Acute low back pain over the past 6 weeks Left lower extremity radiculopathy Left lower extremity weakness with hip flexion and knee extension L2-3 severe central stenosis and bilateral neural foraminal stenosis L3-4 moderate central stenosis and bilateral neural foraminal stenosis L2-3 and L3-4 degenerative disc disease L2-3 and L3-4 facet arthropathy Bilateral lower extremity swelling History of lumbar fusion performed in 2008 Coronary artery disease History of CVA/TIA Diabetes mellitus Hyperlipidemia Hypertension History of myocardial infarction Obesity Plan: 1. Patient has been experiencing increased low back pain with left lower extremity radiculopathy and weakness with some right lower extremity radiculopathy over the past 6 weeks without injury. He is had difficulty with pain control and some difficulty ambulation due to his pain. Patient has a history of previous lumbar fusion performed in 2008. He had lumbar x-ray imaging and MRI imaging performed yesterday. Review of imaging shows stable hardware at L4-5. He does have significant degenerative findings at L2-3 and L3-4 with degenerative disc disease, facet arthropathy, herniated nucleus pulposus, central canal stenosis, and bilateral neural foraminal stenosis. At this time, he will plan to work to conservative treatment options. Yesterday his daughter underwent surgical intervention with brain tumor resection in which the tumor was malignant. He is unsure if he may need to move to [place] to help care for his grandchildren. He is trying to avoid invasive treatment at this time. He would be willing to work further with pain management is going to discuss the possibility of injections. Pain management has been contacted and they'll plan to reevaluate the patient today. We did discuss if he were to fail all conservative treatment options he would be a candidate for further surgical intervention at his lumbar spine. We would currently plan have him follow-up in the outpatient setting in approximately 3 weeks for further evaluation.Patient may follow-up with Lucas Waters PA-C or Dr. Aubrey Kingsley at [facility] following discharge. 2. Patient will continue be seen and examined by medicine for his other medical diagnoses
[2021-08-14 09:15] LABS: Basophils # (A) 0.05 X 10*3/uL (0.00-0.10); Basophils % (A) 0.5 %; Eosinophils # (A) 0.16 X 10*3/uL (0.04-0.35); Eosinophils % (A) 1.5 %; HCT 40.8 % (39.6-50.0); HGB 13.2 g/dL (13.0-17.0); Immature Grans, Automated 0.8 %; Lymphocytes # (A) 1.47 X 10*3/uL (0.90-5.00); Lymphocytes % (A) 13.3 %; MCH 30.3 pg (27.0-32.0); MCHC 32.4 g/dL (32.0-37.0); MCV 93.8 fL (80.0-97.0); Mean Platelet Volume 9.7 fL (9.5-12.2); Monocytes % (A) 6.3 %; NRBC Per 100 WBC 0 /100 WBCS (0.0-0.0); Neutrophils # (A) 8.56 X 10*3/uL (1.80-7.70); Neutrophils % (A) 77.6 %; Platelet Count 310 X 10*3/uL (140-440); RBC 4.35 X 10*6/uL (4.40-5.60); RDW 12.1 % (11.5-14.5); WBC 11.03 X 10*3/uL (4.50-10.00)
[2021-08-14 09:33] LABS: African American GFR (CKD) 99.9 (60.0-200.0); BUN/Creat Ratio 20.88 Ratio (12.00-20.00); Blood Urea Nitrogen 16.7 mg/dL (9.0-27.0); Calcium 9.5 mg/dL (8.7-10.3); Non-African American GFR(CKD) 86.2 (60.0-200.0); Potassium 4.5 mmol/L (3.5-5.5)
[2021-08-14 12:25] LABS: Glucose,Whole Blood 237 mg/dL (75-99)
--- NOTE | 2021-08-14 13:11 | P.PN ---
Subjective Patient was examined about serotonin accompanying of any worsening symptomatology. Patient did have a discussion with orthopedic service and currently being evaluated pending pain management. Case discussed with RN present at bedside Objective - Vital Signs Vital signs: Vital Signs Temp 97.9 F 08/14/21 07:00 Pulse 51 L 08/14/21 08:50 Resp 18 08/14/21 08:50 BP 174/75 08/14/21 08:50 Pulse Ox 97 08/14/21 08:50 Intake & Output 08/13/21 08/14/21 08/14/21 18:59 06:59 18:59 Intake Total 480 240 Output Total 625 Balance -145 240 Intake: Oral 480 240 Output: Urine 625 Other: Voiding Method Toilet # Voids 1 1 # Bowel Movements 0 - Exam Constitutional: No acute distress, conversant, pleasant Eyes:Anicteric sclerae, moist conjunctiva, no lid-lag, PERRLA, ENMT: Oropharynx clear, no erythema, exudates Neck: Supple, FROM, no masses, or JVD, No carotid bruits, No thyromegaly Lungs: Bilateral air entry, some very minimal wheezing noted however very comfortable. Cardiovascular: Heart regular in rate and rhythm, No murmurs, gallops, or rubs, No peripheral edema Abdominal: Soft, Nontender, no guarding, rebound or rigidity, Normoactive bowel sounds, No hepatomegaly, No splenomegaly, No palpable mass Skin: Normal temperature, tone, texture, turgor, no induration, No subcutaneous nodules, No rash, lesions, No ulcers Extremities: severe pain in the left lower back with any left leg movement. No digital cyanosis, No clubbing, Pedal pulses intact and symmetrical, Radial pulses intact and symmetrical, No calf tenderness Psychiatric: Alert and oriented to person, place and time, appropriate affect, intact judgement Neuro: Muscles Strength 5/5 in all 4 extremities, Sensation to light touch grossly present throughout, Cranial nerves II-XII grossly intact, no focal sensory deficits - Labs CBC & Chem 7: 08/14/21 06:56 08/14/21 06:56 Labs: Abnormal Lab Results - Last 24 Hours (Table) 08/13/21 08/13/21 08/13/21 Range/Units 11:46 11:46 16:38 WBC (4.50-10.00) X 10*3/uL RBC 3.96 L (4.40-5.60) X 10*6/uL Hgb 11.9 L (13.0-17.0) g/dL Hct 37.8 L (39.6-50.0) % MCHC 31.5 L (32.0-37.0) g/dL Immature Gran # (0.00-0.04) X 10*3/uL Neutrophils # (1.80-7.70) X 10*3/uL Chloride (96-109) mmol/L Carbon Dioxide (20.0-27.5) mmol/L BUN/Creatinine Ratio 24.90 H (12.00-20.00) Ratio Glucose 207 H (70-110) mg/dL POC Glucose (mg/dL) 231 H (75-99) mg/dL 08/13/21 08/14/21 08/14/21 Range/Units 20:20 06:56 06:56 WBC 11.03 H (4.50-10.00) X 10*3/uL RBC 4.35 L (4.40-5.60) X 10*6/uL Hgb (13.0-17.0) g/dL Hct (39.6-50.0) % MCHC (32.0-37.0) g/dL Immature Gran # 0.09 H (0.00-0.04) X 10*3/uL Neutrophils # 8.56 H (1.80-7.70) X 10*3/uL Chloride 95 L (96-109) mmol/L Carbon Dioxide 28.0 H (20.0-27.5) mmol/L BUN/Creatinine Ratio 20.88 H (12.00-20.00) Ratio Glucose 186 H (70-110) mg/dL POC Glucose (mg/dL) 212 H (75-99) mg/dL 08/14/21 08/14/21 Range/Units 07:11 12:12 WBC (4.50-10.00) X 10*3/uL RBC (4.40-5.60) X 10*6/uL Hgb (13.0-17.0) g/dL Hct (39.6-50.0) % MCHC (32.0-37.0) g/dL Immature Gran # (0.00-0.04) X 10*3/uL Neutrophils # (1.80-7.70) X 10*3/uL Chloride (96-109) mmol/L Carbon Dioxide (20.0-27.5) mmol/L BUN/Creatinine Ratio (12.00-20.00) Ratio Glucose (70-110) mg/dL POC Glucose (mg/dL) 191 H 237 H (75-99) mg/dL Assessment and Plan Plan: Assessment: #1 intractable lower back pain #2 diabetes mellitus type 2 #3 coronary disease #4 hyperlipidemia #5 essential hypertension Plan: -Admit to medicine for close monitoring -Aspiration/fall precaution -MRI has been reviewed by orthopedic service. Recommending conservative management. Pending evaluation and treatment by pain management. -Pain control when necessary -PT/OT -Metformin held while inpatient -Continue with low-dose sliding scale -Due to prophylaxis Lovenox
[2021-08-14] MEDS: CHOLECALCIFEROL 25 MCG (1000 IU) TABLET PO SCH (13:17)
[2021-08-14 17:30] LABS: Glucose,Whole Blood 207 mg/dL (75-99)
[2021-08-14] MEDS ORDERED: KETOROLAC 15 MG/ML 1 ML VIAL IVP PRN (18:21)
[2021-08-14 20:28] LABS: Glucose,Whole Blood 178 mg/dL (75-99)
[2021-08-14] MEDS: INSULIN DETEMIR (LEVEMIR) 100 UNIT/ML SYR SQ SCH (20:47)
[2021-08-14] MEDS: ATORVASTATIN 20 MG TAB PO SCH (20:47)
[2021-08-15] MEDS: MORPHINE SULFATE 4 MG/ML SYRINGE IV PRN ×5 (00:56→22:11)
[2021-08-15 07:54] LABS: Glucose,Whole Blood 246 mg/dL (75-99)
[2021-08-15] MEDS: INSULIN ASPART (NovoLOG) 100 UNIT/ML VIAL SQ SCH ×4 (08:18→22:10)
[2021-08-15] MEDS: LOSARTAN 25 MG TAB PO SCH (08:18)
[2021-08-15] MEDS: CLOPIDOGREL 75 MG TAB PO SCH (08:20)
[2021-08-15] MEDS: ENOXAPARIN 40 MG/0.4 ML SYRINGE SQ SCH (08:20)
[2021-08-15] MEDS: ASPIRIN 81 MG PO SCH (08:20)
--- NOTE | 2021-08-15 10:40 | P.PN ---
Subjective Patient was examined at bedside today not complaining of any worsening symptomatology. Reversibly pain management for possible intervention. Blood pressure continues to be very elevated overnight highest reading 214/102 repeat 180/75. Patient doesn't seem to be in a lot of distress during my examination he states that he does not take any antihypertensive medication at home. Case discussed with RN present at bedside. Objective - Vital Signs Vital signs: Vital Signs Temp 98.3 F 08/15/21 07:25 Pulse 60 08/15/21 07:25 Resp 18 08/15/21 08:26 BP 182/92 08/15/21 07:25 Pulse Ox 97 08/15/21 07:25 Intake & Output 08/14/21 08/15/21 08/15/21 18:59 06:59 18:59 Intake Total 720 Balance 720 Intake: Oral 720 Other: Voiding Method Toilet Toilet # Voids 1 1 - Exam Constitutional: No acute distress, conversant, pleasant Eyes:Anicteric sclerae, moist conjunctiva, no lid-lag, PERRLA, ENMT: Oropharynx clear, no erythema, exudates Neck: Supple, FROM, no masses, or JVD, No carotid bruits, No thyromegaly Lungs: Bilateral air entry, some very minimal wheezing noted however very comfor table. Cardiovascular: Heart regular in rate and rhythm, No murmurs, gallops, or rubs, No peripheral edema Abdominal: Soft, Nontender, no guarding, rebound or rigidity, Normoactive bowel sounds, No hepatomegaly, No splenomegaly, No palpable mass Skin: Normal temperature, tone, texture, turgor, no induration, No subcutaneous nodules, No rash, lesions, No ulcers Extremities: severe pain in the left lower back with any left leg movement. No digital cyanosis, No clubbing, Pedal pulses intact and symmetrical, Radial pulses intact and symmetrical, No calf tenderness Psychiatric: Alert and oriented to person, place and time, appropriate affect, intact judgement Neuro: Muscles Strength 5/5 in all 4 extremities, Sensation to light touch grossly present throughout, Cranial nerves II-XII grossly intact, no focal sensory deficits - Labs CBC & Chem 7: 08/14/21 06:56 08/14/21 06:56 Labs: Abnormal Lab Results - Last 24 Hours (Table) 08/14/21 08/14/21 08/14/21 Range/Units 12:12 17:25 20:26 POC Glucose (mg/dL) 237 H 207 H 178 H (75-99) mg/dL 08/15/21 Range/Units 07:53 POC Glucose (mg/dL) 246 H (75-99) mg/dL Assessment and Plan Plan: Assessment: #1 intractable lower back pain #2 hypertensive urgency #3 coronary disease #4 hyperlipidemia #5 essential hypertension #6 diabetes mellitus type 2 Plan: -Admit to medicine for close monitoring -Aspiration/fall precaution/hob3 -Patient does have extensive coronary disease we'll start the patient on Coreg low-dose and KAY inhibitor. Blood pressure goal of less than 130/80 continue to monitor closely recommend decreasing map more than 20-25% the first 24 hours. -MRI has been reviewed by orthopedic service. Recommending conservative management. Pending evaluation and treatment by pain management. -Pain control when necessary -PT/OT -Metformin held while inpatient -Continue with low-dose sliding scale -Due to prophylaxis Lovenox Disposition: Pending evaluation and treatment by pain management as recommended by orthopedic service. Also going patient's blood pressure antihypertensive medication started as the patient does have history of coronary disease we will continue to monitor and decreased blood pressure slowly.
[2021-08-15 11:05] LABS: Basophils % (A) 0 %; Eosinophils # (A) 0.1 k/uL (0-0.7); Eosinophils % (A) 2 %; HCT 39.2 % (39.0-53.0); HGB 12.7 gm/dL (13.0-17.5); Lymphocytes # (A) 1.3 k/uL (1.0-4.8); Lymphocytes % (A) 19 %; MCH 31.4 pg (25.0-35.0); MCHC 32.4 g/dL (31.0-37.0); MCV 96.9 fL (80.0-100.0); Mean Platelet Volume 7.2; Monocytes # (A) 0.4 k/uL (0-1.0); Monocytes % (A) 6 %; Neutrophils % (A) 72 %; Platelet Count 359 k/uL (150-450); RBC 4.04 m/uL (4.30-5.90)
[2021-08-15 12:26] LABS: Glucose,Whole Blood 280 mg/dL (75-99)
[2021-08-15] MEDS: CHOLECALCIFEROL 25 MCG (1000 IU) TABLET PO SCH (13:27)
--- NOTE | 2021-08-15 16:06 | P.PN ---
Subjective Progress Note Date: 08/15/21 Principal diagnosis: HISTORY OF PRESENT ILLNESS: This is a follow up for a 76 yr old male inpatient admitted on 08/12/21 with intractable LBP with LLE pain. Pt stated he's interested in ESIs at this time. MRI of the lumbar spine reviewed with pt. He states his pain level is 9/10 in intensity in the lumbar spine, dull & achy in character with sharp, shooting pain towards the left hip and LLE. He states pain shoots mostly towards his anterior left thigh and occasionally to his right thigh. Pain is provoked with any type of movement, including during the night when asleep. Pain is relieved with medications, heat, home based stretching regimen, massage, repositioning and rest. REVIEW OF ORGAN SYSTEMS: CONSTITUTIONAL: No fevers or chills. No recent weight loss. HEENT: No visual acuity loss, eye pain, difficulties with hearing. No nosebleeds. No difficulty swallowing. RESPIRATORY: Denies any troubles with breathing or dyspnea on exertion. CARDIOVASCULAR: Denies any chest pain, palpitations, or recent heart attacks. GASTROINTESTINAL: Denies fatty food intolerance. Has change in bowel habits and gas bloat. GENITOURINARY: Denies any blood in urine. Has increased urinary frequency. NEUROLOGICAL: + numbness and tingling along the distal extremities. No seizure disorders or headaches. MUSCULOSKELETAL: + back pain SKIN: No skin cancer. No rash. PSYCHIATRIC: Denies current depression or suicidal thoughts. ENDOCRINE: Denies current thyroid disorders. Denies any blood sugar glucose intolerance. HEME/LYMPHATIC: Denies any lumps and bumps around the neck. History of deep venous thrombosis. ALLERGY/IMMUNOLOGY: No immunoglobulin therapy. No immune deficiencies. BREAST: Denies current breast lumps, pain or nipple discharge. Physical Examinations : Constitutional : Cooperative , not in acute distress . HEENT: Neck supple. No Lymphadenopathy. Normal thyroid size . Eyes no ptosis , no icterus, no photophobia . Hearing intact. Normal oropharynx. No Thrush. Respiratory : Chest clear to auscultations bilaterally. No wheezing. No rhonchi. Cardiovascular : Regular rate and rhythm , S1 / S2. No S3 . No S4. Gastrointestinal : Abdomen soft. No tenderness. Bowel sounds x 4. No organomegaly . Genitourinary : Deferred. Neurologic : Cranial nerve II to XII intact. No focal neurological deficits. Psychiatric : alert & oriented x 3. Matching mood & appropriate affect. Judgment & insight intact. Lymphatic No Lymphadenopathy. Musculoskeletal : Cervical Spine Motor strength in the deltoid and biceps: Normal right side. Normal Left side Motor strength biceps and the wrist extensors: Normal right side . Normal left side Motor strength in the triceps muscle: Normal right side. Normal left side Deep tendon reflexes: Normal at the biceps. Normal at Brachioradialis. Normal at triceps Cervical facet loading test: positive bilaterally Spurling test: positive bilaterally Neck distraction test: positive bilaterally Marcelina sign: positive bilaterally Lumbar spine Motor strength lower extremities ,thigh and legs 5/5 Right side , 5/5 Left side Deep tendon reflexes : Normal Knee Jerk. Normal Ankle Jerk Vertebral body tenderness over L2, L3, L4, L5 Lumbar facet Loading Test: positive Right / positive Left Range of motion of the lumbar spine Flexion 30 degrees, extension <10 degrees Straight Leg Raise test: Left/ Right positive at 30 degrees Alexandra test: positive right / positive left. Severe tenderness over the Sacroiliac joint on the Right / Left sides Gaenslen test: positive bilaterally Seated flexion test: positive L>R Imaging: MRI without contrast of the Lumbar spine from 08/13/2021 reviewed Assessment/ Plan : Lumbar DDD, Lumbar stenosis, Lumbar facet arthropathy In light of lumbar stenosis at L3-L4 and lumbar fusion of L4-L5, will recommend LESI of L2-L3. May need a series of injections, up to 3 within a 6 mo period, for optimal pain relief. Risks, benefits of procedure discussed and pt verbalized understanding. Denies anticoagulant use or medical history of diabetes. Protocol for discontinuation / continuation of insulin nimesh procedure discussed with pt and nurse at side. Patient may follow up at the Pain Clinic on an outpatient basis for further exploration of his pain management options. All questions answered. I have spent greater than 50 minutes on patient care today. Dr Rivera was available by phone for the evaluation of this patient. The time was used to review the medical records including relevant urine studies and Prescription history (MAPs), review of the available imaging, evaluation and examination of the patient, coordination of care with the medical staff and if applicable referring physicians, as well as creation of the medical record Objective - Vital Signs Vital signs: Vital Signs Temp 97.7 F 08/15/21 14:35 Pulse 64 08/15/21 14:35 Resp 18 08/15/21 14:35 BP 154/67 08/15/21 14:35 Pulse Ox 98 08/15/21 14:35 Intake & Output 08/14/21 08/15/21 08/15/21 18:59 06:59 18:59 Intake Total 720 350 Balance 720 350 Intake: Oral 720 350 Other: Voiding Method Toilet Toilet # Voids 1 1 1 - Labs CBC & Chem 7: 08/15/21 10:13 08/14/21 06:56 Labs: Abnormal Lab Results - Last 24 Hours (Table) 08/14/21 08/14/21 08/15/21 Range/Units 17:25 20:26 07:53 RBC (4.30-5.90) m/uL Hgb (13.0-17.5) gm/dL POC Glucose (mg/dL) 207 H 178 H 246 H (75-99) mg/dL Hemoglobin A1c (0.0-6.0) % 08/15/21 08/15/21 08/15/21 Range/Units 10:13 10:13 12:24 RBC 4.04 L (4.30-5.90) m/uL Hgb 12.7 L (13.0-17.5) gm/dL POC Glucose (mg/dL) 280 H (75-99) mg/dL Hemoglobin A1c 10.3 H (0.0-6.0) % PQRS Measure Charge Sheet - Pain Location Back Pharmacological Interventions: PRN Medication Pain Comment: see mar PQRS Narrative: Smoking Status Light tobacco smoker Blood Pressure [Left Arm 154/67 Sitting] Blood Pressure [Right Arm 182/92 Sitting] Blood Pressure [Left Arm] 180/75 Blood Pressure [Right Arm 191/77 Supine] Blood Pressure 184/77 Pain Intensity [Back] 6 Pain Intensity 2 Pain Scale Used Numeric (1 - 10) Scale Used Numeric (1 - 10) Home Medications: Ambulatory Orders Multivitamin [Men's Multi-Vitamin] 1 tab PO DAILY 08/12/13 Ascorbic Acid [Vitamin C] 1,000 mg PO DAILY 08/12/21 HYDROcodone/APAP 7.5-325MG [[place] 7.5-325] 1 tab PO Q6H PRN 08/12/21 Insulin Aspart [NovoLOG Flexpen] See Protocol SQ AC-TID 08/12/21 Insulin Glargine,Hum.rec.anlog [Lantus Solostar Pen] 6 unit SQ HS 08/12/21 glipiZIDE XL [Glucotrol Xl] 10 mg PO BID 08/12/21 metFORMIN HCL [Glucophage] 500 mg PO TID 08/12/21
[2021-08-15] MEDS: carvediloL 3.125 MG TAB PO SCH (17:00)
[2021-08-15 17:13] LABS: Glucose,Whole Blood 285 mg/dL (75-99)
[2021-08-15 19:10] LABS: African American GFR (CKD) 95.1 (60.0-200.0); Anion Gap 10.9 mmol/L (10.00-18.00); BUN/Creat Ratio 19.67 Ratio (12.00-20.00); Blood Urea Nitrogen 17.7 mg/dL (9.0-27.0); Calcium 8.8 mg/dL (8.7-10.3); Carbon Dioxide 27.1 mmol/L (20.0-27.5); Non-African American GFR(CKD) 82.1 (60.0-200.0); Potassium 4.6 mmol/L (3.5-5.5)
[2021-08-15 21:02] LABS: Glucose,Whole Blood 257 mg/dL (75-99)
[2021-08-15] MEDS: INSULIN DETEMIR (LEVEMIR) 100 UNIT/ML SYR SQ SCH (22:10)
[2021-08-15] MEDS: ATORVASTATIN 20 MG TAB PO SCH (22:10)
[2021-08-16 03:44] VITALS: TEMP 98.3
[2021-08-16 07:19] LABS: Glucose,Whole Blood 211 mg/dL (75-99)
[2021-08-16] MEDS: INSULIN ASPART (NovoLOG) 100 UNIT/ML VIAL SQ SCH ×3 (08:26→14:04)
[2021-08-16 08:33] VITALS: BP 178/81; PULSE 61; RESP 18
[2021-08-16] MEDS: LOSARTAN 25 MG TAB PO SCH (09:17)
[2021-08-16] MEDS: ASPIRIN 81 MG PO SCH (09:18)
[2021-08-16] MEDS: carvediloL 3.125 MG TAB PO SCH (09:18)
[2021-08-16] MEDS: CLOPIDOGREL 75 MG TAB PO SCH (09:19)
[2021-08-16] MEDS: ENOXAPARIN 40 MG/0.4 ML SYRINGE SQ SCH (09:19)
[2021-08-16 09:29] LABS: Basophils # (A) 0.05 X 10*3/uL (0.00-0.10); Basophils % (A) 0.7 %; Eosinophils # (A) 0.18 X 10*3/uL (0.04-0.35); Eosinophils % (A) 2.5 %; HCT 38.1 % (39.6-50.0); HGB 12.2 g/dL (13.0-17.0); Immature Grans, Automated 0.4 %; Lymphocytes # (A) 1.58 X 10*3/uL (0.90-5.00); MCH 30.3 pg (27.0-32.0); MCV 94.8 fL (80.0-97.0); Monocytes # (A) 0.74 X 10*3/uL (0.20-1.00); Monocytes % (A) 10.3 %; NRBC Per 100 WBC 0 /100 WBCS (0.0-0.0); Neutrophils # (A) 4.59 X 10*3/uL (1.80-7.70); Neutrophils % (A) 64.1 %; Platelet Count 346 X 10*3/uL (140-440); RBC 4.02 X 10*6/uL (4.40-5.60); RDW 12.1 % (11.5-14.5); WBC 7.17 X 10*3/uL (4.50-10.00)
[2021-08-16 09:51] LABS: African American GFR (CKD) 99.9 (60.0-200.0); Anion Gap 11.6 mmol/L (10.00-18.00); Blood Urea Nitrogen 21.6 mg/dL (9.0-27.0); Calcium 9.1 mg/dL (8.7-10.3); Carbon Dioxide 28.4 mmol/L (20.0-27.5); Non-African American GFR(CKD) 86.2 (60.0-200.0); Potassium 4.6 mmol/L (3.5-5.5)
--- NOTE | 2021-08-16 11:35 | P.PN ---
Progress Note - Text Progress Note Date: 08/16/21 The patient is seen and examined today at bedside. He says he is overall feeling better. His back is doing better as well as his legs with conservative treatment. He was not able to undergo epidural steroid injections with his recent blood thinners but they can plan to follow him up on an outpatient basis and consider these procedures down the line if his symptoms worsen. He's afebrile with stable vital signs. At his lower extremities he is able lift his legs up off the floor and has good strength diffusely without any focal deficit. There is no pain with internal action rotation of his hips. He has sustained dorsal flexion plantar flexion and EHL hip flexion and knee extension. His neck is nontender palpation of the midline. Assessment and plan In terms of the patient's low back he has Acute on chronic low back pain with some improvement with conservative treatment. He has been making some progress with his mobility and he feels comfortable to leave hospital in terms of his back and his legs. I think he is okay to continue management on an outpatient basis from an orthopedic and pain management standpoint. I appreciate pain management input and they can continue to follow him and consider injections an outpatient basis if his symptoms were to worsen. He would be a candidate for surgical intervention if CONSERVATIVE measures were to fail however this would involve significant intervention with prolonged surgery and recovery. We again discussed this today and would like to hold off on that for as long as possible. We can see him on an outpatient basis.
[2021-08-16 12:04] LABS: Glucose,Whole Blood 295 mg/dL (75-99)
[2021-08-16] MEDS: CHOLECALCIFEROL 25 MCG (1000 IU) TABLET PO SCH (12:12)
--- NOTE | 2021-08-16 15:58 | P.DS ---
Providers Date of admission: 08/15/21 11:45 Expected date of discharge: 08/16/21 Attending physician: Justen Siddiqi MD Consults: 08/12/21 05:45 Consult Physician Routine Consulting Provider: Brock Kingsley Consult Reason/Comments: back pain Do you want consulting provider notified?: Yes Primary care physician: [facility] Course: History of Present Illness per H&P Chief Complaint: back pain 76-year-old male presents to the emergency department complaining of worsening left low back and hip pain which radiates into the left leg. This has been going on for over one month. Patient was initially seen at [facility] and a computed tomography scan and plain x-rays were ordered. Patient was given a course of corticosteroids subsequently. Patient states he was on those for 3 days then became disoriented and had blood sugars in the 600s. Patient states pain seems to wrap around the leg is related to movement, alleviated by rest. Patient has been taking hydrocodone/acetaminophen, 7.5/325 at home. He states he was given this by the orthopedic PA at orthopedic [facility]. Patient had an evaluation there. It was felt that the patient's pain was due to lumbar radiculopathy. Has an appointment for an MRI on Friday. He also has an appointment with Dr. Kingsley on Friday. Patient previously has had back surgery by Dr. Kingsley in 2008. States that he started to need a walker to ambulate. No urinary retention or incontinence, no stool incontinence. No fever. No hx of trauma. No headache, no fever or chills, no changes in vision or hearing, no sore throat or difficulty with speech, no neck pain, no chest pain or shortness of breath, no abdominal pain, no nausea or vomiting, no changes in urination or bowel movements, no numbness or tingling, no extremity pain, no skin rashes or lesions. Hospital course in detailed problem list: # acute on chronic low back pain -Patient was cleared for discharge per pain management for outpatient epidural steroid injection. # uncontrolled hypertension -Discharged home on Coreg and losartan. Prescription was given discharge # coronary artery disease -Patient discharged on beta april, aspirin and statins -Follow up with cardiology # dyslipidemia Patient discharged home on statin # type 2 diabetes mellitus -A1c 7.8 -Resume diabetic diet -Resume glipizide and metformin on discharge Physical examination on discharge: General: non toxic, no distress, appears at stated age Derm: warm, dry Head: atraumatic, normocephalic, symmetric Eyes: EOMI, no lid lag, anicteric sclera Mouth: no lip lesion, mucus membranes moist Cardiovascular: S1S2 reg, no murmur, positive posterior tibial pulse bilateral, Lungs: CTA bilateral, no rhonchi, no rales , no accessory muscle use Abdominal: soft, nontender to palpation, no guarding, no appreciable organomegaly Ext: no gross muscle atrophy, no edema, no contractures Neuro: CN II-XI grossly intact, no focal neuro deficits Psych: Alert, oriented, appropriate affect Patient Condition at Discharge: Stable Plan - Discharge Summary Discharge Rx Participant: No New Discharge Prescriptions: New Aspirin 162 mg PO DAILY carvediloL [Coreg] 3.125 mg PO BID 30 Days #60 tablet Losartan [Cozaar] 25 mg PO DAILY 30 Days #30 tab Continue Multivitamin [Men's Multi-Vitamin] 1 tab PO DAILY metFORMIN HCL [Glucophage] 500 mg PO TID Insulin Aspart [NovoLOG Flexpen] See Protocol SQ AC-TID Insulin Glargine,Hum.rec.anlog [Lantus Solostar Pen] 6 unit SQ HS glipiZIDE XL [Glucotrol XL] 10 mg PO BID HYDROcodone/APAP 7.5-325MG [[place] 7.5-325] 1 tab PO Q6H PRN PRN Reason: Pain Ascorbic Acid [Vitamin C] 1,000 mg PO DAILY Discharge Medication List Multivitamin [Men's Multi-Vitamin] 1 tab PO DAILY 08/12/13 [History] Ascorbic Acid [Vitamin C] 1,000 mg PO DAILY 08/12/21 [History] HYDROcodone/APAP 7.5-325MG [[place] 7.5-325] 1 tab PO Q6H PRN 08/12/21 [History] Insulin Aspart [NovoLOG Flexpen] See Protocol SQ AC-TID 08/12/21 [History] Insulin Glargine,Hum.rec.anlog [Lantus Solostar Pen] 6 unit SQ HS 08/12/21 [History] glipiZIDE XL [Glucotrol XL] 10 mg PO BID 08/12/21 [History] metFORMIN HCL [Glucophage] 500 mg PO TID 08/12/21 [History] Aspirin 162 mg PO DAILY 08/16/21 [Rx] Atorvastatin [Lipitor] 20 mg PO HS 30 Days #30 tablet 08/16/21 [Rx] Losartan [Cozaar] 25 mg PO DAILY 30 Days #30 tab 08/16/21 [Rx] carvediloL [Coreg] 3.125 mg PO BID 30 Days #60 tablet 08/16/21 [Rx] Follow up Appointment(s)/Referral(s): [facility] [NON-STAFF] - 1-2 Days Jerrod Carlos MD [STAFF PHYSICIAN] - 1 Week Danie Alejandre DO [Primary Care Provider] - 1-2 days Lucas Waters PAC [PHYSICIAN ACCOUNTING TEACHER] - 3 Weeks (Patient may follow up with Lucas Waters PA-C or Dr. Aubrey Kingsley at [facility] in approximately 2-3 weeks for further evaluation.) [facility] [NON-STAFF] - 1 Week Patient Instructions/Handouts: Chronic Back Pain (DC), Hyperlipidemia (DC) Discharge Disposition: HOME SELF-CARE
== END 2021-08-16 14:44 | disposition home or self-care (01) ==
LOC: EC 02:47 → 6NMEDSUR 05:42 → INTOOBSV 08-15 11:45 → OBSVTOIN 08-15 11:45 → UNDODISIN 08-16 14:44
PROVIDERS: ADMIT Internal Medicine; ATTEND Internal Medicine
DX: M48.061 Spinal stenosis, lumbar region without neurogenic claudication (principal); M47.26 Other spondylosis with radiculopathy, lumbar region; M51.16 Intervertebral disc disorders with radiculopathy, lumbar region; G89.29 Other chronic pain; E11.9 Type 2 diabetes mellitus without complications; I10 Essential (primary) hypertension; J45.909 Unspecified asthma, uncomplicated; I25.2 Old myocardial infarction; E66.9 Obesity, unspecified; Z68.30 Body mass index [BMI] 30.0-30.9, adult; M79.89 Other specified soft tissue disorders; Z98.1 Arthrodesis status; F17.200 Nicotine dependence, unspecified, uncomplicated; I16.0 Hypertensive urgency; I25.10 Atherosclerotic heart disease of native coronary artery without angina pectoris; E78.5 Hyperlipidemia, unspecified; Z71.3 Dietary counseling and surveillance; Z86.73 Personal history of transient ischemic attack (TIA), and cerebral infarction without residual deficits; Z95.5 Presence of coronary angioplasty implant and graft; Z79.899 Other long term (current) drug therapy; Z79.82 Long term (current) use of aspirin; Z79.84 Long term (current) use of oral hypoglycemic drugs; Z79.02 Long term (current) use of antithrombotics/antiplatelets; Z79.4 Long term (current) use of insulin; Z71.9 Counseling, unspecified; Z82.49 Family history of ischemic heart disease and other diseases of the circulatory system
CPT/HCPCS: 96376 ×4; 96372 ×4; 96375; 96374; 99284; 36415; 94640; 97530 ×2; 97162; 97166; 80053; 80048 ×4; 85652; 85025 ×5; 86140; 83036 ×2; 72100; 73502; 72148; G0378 ×5; J2270 ×4; J1650 ×3; J1885 ×2

== ENCOUNTER 2021-09-11 07:29 | Day surgery (SDC) | payer MEDICARE ==
[2021-09-07 12:39] VITALS: BMI 29.4
[~2021-09-11 07:29] MED LIST: LACTATED RINGERS 1,000 ML IV SCH; LIDOCAINE 1% (10MG/ML) FOR IV START INTRADERMA PRN
[2021-09-11] MEDS ORDERED: LACTATED RINGERS 1,000 ML IV ONE (07:45)
[2021-09-11 07:58] LABS: Glucose,Whole Blood 263 mg/dL (75-99)
[2021-09-11 08:04] VITALS: RESP 18; TEMP 97.8
[2021-09-11] MEDS ORDERED: IOPAMIDOL M200 10 ML VIAL ONE (08:14)
[2021-09-11] MEDS ORDERED: methylPREDNISolone ACETATE 40 MG/ML 1 ML VIAL ONE (08:14)
[2021-09-11] MEDS ORDERED: MIDAZOLAM 2 MG/2 ML VIAL ONE (08:14)
[2021-09-11] MEDS ORDERED: fentaNYL (PF) 50 MCG/ML 2 ML AMP ONE (08:14)
--- NOTE | 2021-09-11 08:33 | P.PCN ---
Date of Procedure: 09/11/21 Procedure(s) Performed: PREOPERATIVE DIAGNOSIS: 1- Lumbar Degenerative Disc Diseases 2-Lumbar spondylosis with Facet arthropathy without myelopathy. 3-lumbar spinal stenosis. 4-previous fusion at L4 5 and L5-S1 POSTOPERATIVE DIAGNOSIS: Same as preop diagnosis. PROCEDURE 1. Lumbar epidural steroid injection under fluoroscopic guidance at the L2-3 level. (Fluoroscopy imaging was available in radiology department) 2. Lumbar epidurogram. ANESTHESIA: Local with 1% lidocaine 3 ml and , moderate sedation with intravenous Versed 1 mg ,and fentanyle 50 Mcg EBL: Minimal PROCEDURE INDICATION: The patient with low back pain and radiculitis symptoms unresponsive to conservative treatment. Fluoroscopy was used to optimize visualization of the needle placement and to maximize safety. PROCEDURE DESCRIPTION / TECHNIQUE: The patient was seen and identified in the preoperative area. Risks, benefits, complications including but not limited to infections ,bleeding ,allergic reaction to the medications ,nerve damage and not complete pain releife , and alternatives were discussed with the patient. The patient agreed to proceed with the procedure and signed the consent. IV was started, and vital signs were stable. Patient was taken to the OR and time out was completed. The patient was placed in the prone position on procedure table and a pillow was placed under the abdomen to reduce lumbar lordosis. The lumbosacral area was prepped and draped in the usual sterile fashion.ere closely monitored during the procedure. Conscious sedation was used during the procedure to decrease patients anxiety. Vital signs was monitered during the entire procedure. Using anterior-posterior fluoroscopy, the L2-3 interlaminar space was identified and the skin over this site was marked and then infiltrated with 1% lidocaine subcutaneously. Subsequently, a 20-gauge Tuohy epidural needle was inserted and advanced toward the epidural space using the ``Loss of resistance technique and guided by AP and lateral fluoroscopy. The correct needle position in the epidural space was verified with the injection of 2 mL of the water soluble contrast dye Isovue 200 contrast and observing an excellent epidurogram with the epidural spread of the dye, after negative aspiration for blood and CSF and in the absence of paresthesias. Again after negative aspiration, a 6 ml mixture containing 40 mg of Depo-medrol , and 2 ml of preservative free Normal Saline, and 2 ml of preservative free lidocaine 1% solution was injected and a washout of epidurogram was seen. Needle was withdrawn intact, skin was cleansed, and bandages were applied. COMPLICATIONS: None DISPOSITION / PLANS: The patient was placed in a supine position and transferred to the recovery area in a stable condition for observation. There was no evidence of lower extremity motor or sensory deficit after the procedure. Patient was discharged from the recovery room after meeting discharge criteria. Home discharge instructions were given to the patient by the staff. The patient was reexamined prior to discharge. The patient will schedule a follow up in the clinic in 2-4 weeks.
[2021-09-11] MEDS ORDERED: IV FLUID CONTINUATION 1,000 ML IV ONE (08:43)
[2021-09-11] MEDS ORDERED: INSULIN ASPART (NovoLOG) 100 UNIT/ML VIAL SQ ONE (08:47)
[2021-09-11 09:10] VITALS: BP 177/75; PULSE 66
[2021-09-11 09:15] LABS: Glucose,Whole Blood 321 mg/dL (75-99)
--- NOTE | 2021-09-11 10:35 | FL ---
EXAMINATION TYPE: FL guided pain mgmt statistic DATE OF EXAM: 09/11/2021 FLUOROSCOPY Fluoroscopy time of 3 seconds was used during lumbar epidural steroid injection. 1 image/s document/ s the procedure.
== END 2021-09-11 09:42 | disposition home or self-care (01) ==
LOC: ORPAIN 07:29
PROVIDERS: ATTEND Specialist
DX: M47.816 Spondylosis without myelopathy or radiculopathy, lumbar region (principal); M48.061 Spinal stenosis, lumbar region without neurogenic claudication; M51.36 Other intervertebral disc degeneration, lumbar region; Z98.1 Arthrodesis status
CPT/HCPCS: 62323; J2250; J1030; J3010; Q9966; 99152

== ENCOUNTER → 2022-01-02 | Outpatient (CLI) | payer MEDICARE ==
[2022-01-02 13:51] VITALS: BP 124/82; PULSE 68; RESP 18; TEMP 98
--- NOTE | 2022-01-02 15:12 | P.PAINPG ---
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 Pt states he experienced 90% pain relief x 2 mo s/p procedure. Pain level is currently at /10 in intensity, constant, localized in the mid lumbar spine, dull/ achy in character w sharp/ shooting towards the B hips, L> R. Pain is provoked by walking for periods of 10 min or more, or getting out of a vehicle (due to weakness). Pain is alleviated with ice, medications (Percocet, Tylenol OTC), topicals, sitting, repositioning and rest. Interventional pain procedures completed include CONNIE L2-L3 (L4-S1 fusion) Patient is currently on Percocet 7.5/325mg Patient denies any side effects of the medication(s), denies excessive drowsiness or sleepiness, denies suicidal ideation and reports that the current pain medication is helping to control the pain and improve activities of daily living. Patient denies any motor or sensory deficits. Patient denies any fever or night sweats, denies any change in the bowel movements or urination. Physical Examination: -Constitutional: Cooperative. Not in acute distress . - Neurologic: Cranial nerve II to XII intact. No focal neurological deficits. - Psychatric: Alert & oriented x 3. Matching mood & appropriate affect. Judgment and insight intact. - Musculoskeletal: Cervical spine: Muscle bulk/ tone/ strength in the bilateral upper extremities normal Vertebral body tenderness to palpation over Spurling test positive Distraction test positive Facet loading test positive Thoracic spine Muscle bulk / tone/ strength in the bilateral paraspinal muscles normal Vertebral body tender to palpation over Facet loading test positive Lumbar spine: Motor bulk/ tone/ strength lower extremities , thigh and legs : 5/5 Deep tendon reflexes : Normal Knee Jerk. Normal Ankle Jerk . Vertebral body tenderness to palpation over Lumbar Facet Loading Test positive Straight Leg Raise: positive at 30 degrees right side/ left side Gaenslen's Test positive Sacral spine : Severe tenderness over the Sacroiliac joint: right side / left side Range of motion: Flexion of the lumbar spine <60 degrees Range of motion: Extension of the lumbar spine <20 degrees Gaenslen's Test positive Forest's Test positive Alexandra test: positive right side / left side Thigh Thrust Test Sacral Thrust Test Assessment and plan: Chronic low back pain secondary to lumbar degenerative disc disease , lumbar spondylosis with facet arthropathy without myelopathy Recommendation of PT 2x/wk x 6 wks to improve strength/ ROM. Chronic and current use of high-risk medication (Opioids). Protocol for discontinuation/ continuation of medications nimesh procedure discussed. The patient was counseled about risk of opioid use, psychological risk associated with opioids and was orally counseled to not overuse , divert or sell medications. Pt is to store medication in a safe location. The patient is counseled against driving while using narcotic medications and also not to use alcohol or any illicit recreational drugs. Patient verbalized understanding that the lack of compliance will result in failure to renew narcotic prescription(s) as well as possible discharge from the clinic Diagnoses, prognosis and treatment options including but not limited to physical therapy, surgical interventions, interventional therapies and medication management including narcotics and adjuvant medication were discussed. All patient questions answered MAPS reviewed and it was appropriate. Prescription for Percocet 7.5/325mg #60 w 1 RF. Narcotic agreement signed today 01/02/22. I have spent less than 30 minutes on patient care today. Dr Rivera was available by phone for the evaluation of this patient. The time was used to review the medical records including relevant urine studies and Prescription history (MAPs), review of the available imaging, evaluation and examination of the patient, coordination of care with the medical staff and if applicable referring physicians, as well as creation of the medical record PQRS Narrative: Smoking Status Light tobacco smoker Home Medications: Ambulatory Orders Multivitamin [Men's Multi-Vitamin] 1 tab PO DAILY 08/12/13 Ascorbic Acid [Vitamin C] 1,000 mg PO DAILY 08/12/21 Insulin Aspart [NovoLOG Flexpen] See Protocol SQ AC-TID 08/12/21 Insulin Glargine,Hum.rec.anlog [Lantus Solostar Pen] 6 unit SQ HS 08/12/21 glipiZIDE XL [Glucotrol XL] 10 mg PO BID 08/12/21 metFORMIN HCL [Glucophage] 500 mg PO TID 08/12/21 Atorvastatin [Lipitor] 20 mg PO HS 30 Days #30 tablet 08/16/21 Losartan [Cozaar] 25 mg PO DAILY 30 Days #30 tab 08/16/21 carvediloL [Coreg] 3.125 mg PO BID 30 Days #60 tablet 08/16/21 Docusate [Colace] 100 mg PO DAILY #30 capsule 08/20/21 Ibuprofen [Advil] 400 mg PO Q6HR PRN 09/07/21 oxyCODONE HCL/ACETAMINOPHEN [Percocet 7.5-325 mg] 1 tab PO Q12HR PRN 30 Days #60 tab 01/02/22 oxyCODONE HCL/ACETAMINOPHEN [Percocet 7.5-325 mg] 1 tab PO Q12HR PRN 30 Days #60 tab 01/02/22 Controlled Substance Measures - Controlled Substance Measures Is patient prescribed a controlled substance at discharge?: Yes When asked, does pt state using other controlled substances?: No If prescribed controlled substance>3 days was MAPS reviewed?: Yes If Rx opioid, was Start Talking consent form obtained?: Yes Was information provided regarding opioid addiction?: Yes
== END ==
LOC: PNWHC3 12:31
PROVIDERS: ATTEND Specialist
DX: M51.36 Other intervertebral disc degeneration, lumbar region (principal); M47.816 Spondylosis without myelopathy or radiculopathy, lumbar region; G89.29 Other chronic pain; Z79.891 Long term (current) use of opiate analgesic; F17.200 Nicotine dependence, unspecified, uncomplicated
CPT/HCPCS: 99211

== ENCOUNTER → 2022-02-27 | Outpatient (CLI) | payer MEDICARE ==
[2022-02-27 13:37] VITALS: BP 134/84; PULSE 86; RESP 16; TEMP 98.1
--- NOTE | 2022-02-27 14:42 | P.PAINPG ---
PQRS Measure Charge Sheet Comment: A 76 yr old male w brother at side with a history of severe and chronic low back pain secondary to lumbar DDD and spondylosis with facet arthropathy without myelopathy presents today for medication refills. Pain level is currently at 9/10 in intensity, constant, localized in the mid to lower spine, throbbing in character without radiation. Pain is provoked by lifting. Pain is alleviated with home exercise regimen, ice, meds (Percocet 7.5/325mg), topical patches, CBD topical, repositioning and rest. Interventional pain procedures completed include CONNIE L2-3 Patient is currently on Percocet 7.5/325mg #60 Patient denies any side effects of the medication(s), denies excessive drowsiness or sleepiness, denies suicidal ideation and reports that the current pain medication is helping to control the pain and improve activities of daily living. Patient denies any motor or sensory deficits. Patient denies any fever or night sweats, denies any change in the bowel movements or urination. Physical Examination: -Constitutional: Cooperative. Not in acute distress . - Neurologic: Cranial nerve II to XII intact. No focal neurological deficits. - Psychatric: Alert & oriented x 3. Matching mood & appropriate affect. Judgment and insight intact. - Musculoskeletal: Cervical spine: Muscle bulk/ tone/ strength in the bilateral upper extremities normal Vertebral body tenderness to palpation over Spurling test positive Distraction test positive Facet loading test positive Thoracic spine Muscle bulk / tone/ strength in the bilateral paraspinal muscles normal Vertebral body tender to palpation over Facet loading test positive Lumbar spine: Motor bulk/ tone/ strength lower extremities , thigh and legs : 5/5 Deep tendon reflexes : Normal Knee Jerk. Normal Ankle Jerk . Vertebral body tenderness to palpation over L3, L4 Lumbar Facet Loading Test positive Straight Leg Raise: positive at 30 degrees right side/ left side Gaenslen's Test positive Sacral spine : Severe tenderness over the Sacroiliac joint: right side / left side Range of motion: Flexion of the lumbar spine <60 degrees Range of motion: Extension of the lumbar spine <20 degrees Gaenslen's Test positive Alexandra test: positive right side / left side Thigh Thrust Test Sacral Thrust Test Assessment and plan: Chronic low back pain secondary to lumbar degenerative disc disease, spondylosis with facet arthropathy without myelopathy Chronic and current use of high-risk medication (Opioids). The patient was counseled about risk of opioid use, psychological risk associated with opioids and was orally counseled to not overuse , divert or sell medications. Pt is to store medication in a safe location. The patient is counseled against driving while using narcotic medications and also not to use alcohol or any illicit recreational drugs. Patient verbalized understanding that the lack of compliance will result in failure to renew narcotic prescription(s) as well as possible discharge from the clinic Diagnoses, prognosis and treatment options including but not limited to physical therapy, surgical interventions, interventional therapies and medication management including narcotics and adjuvant medication were discussed. All patient questions answered MAPS reviewed and it was appropriate. UDS collected today 02/27/22 Narcotic and opiate agreement renewed today 02/27/22 Prescription refill for Percocet 7.5/325mg #60 w 1 RF I have spent less than 30 minutes on patient care today. Dr Rivera was available by phone for the evaluation of this patient. The time was used to review the medical records including relevant urine studies and Prescription history (MAPs), review of the available imaging, evaluation and examination of the patient, coordination of care with the medical staff and if applicable referring physicians, as well as creation of the medical record - Pain Location Generalized Non-Pharmacological Interventions: Home Exercise, Ice, Inactivity, Stretching Pharmacological Interventions: PRN Medication, Topical Medication PQRS Narrative: Smoking Status Light tobacco smoker Hx Alcohol Use (MH) No Home Medications: Ambulatory Orders Multivitamin [Men's Multi-Vitamin] 1 tab PO DAILY 08/12/13 Insulin Aspart [NovoLOG Flexpen] See Protocol SQ AC-TID 08/12/21 Insulin Glargine,Hum.rec.anlog [Lantus Solostar Pen] 6 unit SQ HS 08/12/21 Docusate [Colace] 100 mg PO DAILY #30 capsule 08/20/21 Ibuprofen [Advil] 400 mg PO Q6HR PRN 09/07/21 Albuterol Inhaler [Ventolin Hfa Inhaler] 1 - 2 puff INHALATION Q6H PRN 01/02/22 Ascorbic Acid [Vitamin C] 500 mg PO DAILY 01/02/22 Empagliflozin [Jardiance] 10 mg PO DAILY 01/02/22 Furosemide [Lasix] 20 mg PO DAILY 01/02/22 Insulin Lispro [humaLOG Kwikpen] 0 unit SQ DAILY 01/02/22 Nitroglycerin Sl Tabs [Nitrostat] 0.4 mg SUBLINGUAL Q5M PRN 01/02/22 Omeprazole [PriLOSEC] 10 mg PO DAILY 01/02/22 Rosuvastatin [Crestor] 20 mg PO DAILY 01/02/22 Sacubitril/Valsartan [Entresto 49 mg-51 mg Tablet] 1 each PO DAILY 01/02/22 Spironolactone [Aldactone] 25 mg PO DAILY 01/02/22 Ticagrelor [Brilinta] 90 mg PO BID 01/02/22 Warfarin [Coumadin] 2 mg PO DAILY 01/02/22 carvediloL [Coreg] 3.125 mg PO BID 01/02/22 oxyCODONE HCL/ACETAMINOPHEN [Percocet 7.5-325 mg] 1 tab PO Q12HR PRN 30 Days #60 tab 02/27/22 oxyCODONE HCL/ACETAMINOPHEN [Percocet 7.5-325 mg] 1 tab PO Q12HR PRN 30 Days #60 tab 02/27/22 Controlled Substance Measures - Controlled Substance Measures Is patient prescribed a controlled substance at discharge?: Yes When asked, does pt state using other controlled substances?: No If prescribed controlled substance>3 days was MAPS reviewed?: Yes If Rx opioid, was Start Talking consent form obtained?: Yes Was information provided regarding opioid addiction?: Yes
== END | disposition home or self-care (01) ==
LOC: PNWHC3 13:04
PROVIDERS: ATTEND Specialist
DX: M47.896 Other spondylosis, lumbar region (principal); M51.36 Other intervertebral disc degeneration, lumbar region
CPT/HCPCS: 80307; G0482; G0463; 99212

== ENCOUNTER → 2022-04-24 | Outpatient (CLI) | payer MEDICARE ==
[2022-04-24 13:33] VITALS: BP 111/66; PULSE 57; RESP 18; TEMP 98.1
--- NOTE | 2022-04-24 14:34 | P.PAINPG ---
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 Pain level is provoked at 10 /10 in intensity, constant, localized in the cervical spine, achy/ tender in character w shooting towards the UEs. Pain is provoked by lifting. Pain is alleviated with PT x 2 wks in 2021 till he was , medications, ice, repositioning and rest. Patient is currently on Percocet 7.5/325mg #60, Tylenol Patient denies any side effects of the medication(s), denies excessive drowsiness or sleepiness, denies suicidal ideation and reports that the current pain medication is helping to control the pain and improve activities of daily living. Patient denies any motor or sensory deficits. Patient denies any fever or night sweats, denies any change in the bowel movements or urination. Physical Examination: -Constitutional: Cooperative. Not in acute distress . - Neurologic: Cranial nerve II to XII intact. No focal neurological deficits. - Psychatric: Alert & oriented x 3. Matching mood & appropriate affect. Judgment and insight intact. - Musculoskeletal: Cervical spine: Muscle bulk/ tone/ strength in the bilateral upper extremities normal Vertebral body tenderness to palpation over C6 Spurling test positive Distraction test positive Facet loading test positive Thoracic spine Muscle bulk / tone/ strength in the bilateral paraspinal muscles normal Vertebral body tender to palpation over Facet loading test positive Lumbar spine: Motor bulk/ tone/ strength lower extremities , thigh and legs : 5/5 Deep tendon reflexes : Normal Knee Jerk. Normal Ankle Jerk . Vertebral body tenderness to palpation over Lumbar Facet Loading Test positive Straight Leg Raise: positive at 30 degrees right side/ left side Gaenslen's Test positive Sacral spine : Severe tenderness over the Sacroiliac joint: right side / left side Range of motion: Flexion of the lumbar spine <60 degrees Range of motion: Extension of the lumbar spine <20 degrees Gaenslen's Test positive Alexandra test: positive right side / left side Thigh Thrust Test Sacral Thrust Test Assessment and plan: Chronic low back pain secondary to lumbar degenerative disc disease, spondylosis with facet arthropathy without myelopathy Chronic and current use of high-risk medication (Opioids). The patient was counseled about risk of opioid use, psychological risk associated with opioids and was orally counseled to not overuse , divert or sell medications. Pt is to store medication in a safe location. The patient is counseled against driving while using narcotic medications and also not to use alcohol or any illicit recreational drugs. Patient verbalized understanding that the lack of compliance will result in failure to renew narcotic prescription(s) as well as possible discharge from the clinic Diagnoses, prognosis and treatment options including but not limited to physical therapy, surgical interventions, interventional therapies and medication management including narcotics and adjuvant medication were discussed. All patient questions answered MAPS reviewed and it was appropriate. UDs from 02/27/22 reviewed and consistent. Prescription refill for Percocet 7.5/325mg #60 w 1 RF I have spent less than 30 minutes on patient care today. Dr Rivera was available by phone for the evaluation of this patient. The time was used to review the medical records including relevant urine studies and Prescription history (MAPs), review of the available imaging, evaluation and examination of the patient, coordination of care with the medical staff and if applicable referring physicians, as well as creation of the medical record PQRS Narrative: Smoking Status Light tobacco smoker Narcotic Agreement Date Signed 01/02/22 Hx Alcohol Use (MH) No Home Medications: Ambulatory Orders Multivitamin [Men's Multi-Vitamin] 1 tab PO DAILY 08/12/13 Insulin Aspart [NovoLOG Flexpen] See Protocol SQ AC-TID 08/12/21 Insulin Glargine,Hum.rec.anlog [Lantus Solostar Pen] 6 unit SQ HS 08/12/21 Docusate [Colace] 100 mg PO DAILY #30 capsule 08/20/21 Ibuprofen [Advil] 400 mg PO Q6HR PRN 09/07/21 Albuterol Inhaler [Ventolin Hfa Inhaler] 1 - 2 puff INHALATION Q6H PRN 01/02/22 Ascorbic Acid [Vitamin C] 500 mg PO DAILY 01/02/22 Empagliflozin [Jardiance] 10 mg PO DAILY 01/02/22 Furosemide [Lasix] 20 mg PO DAILY 01/02/22 Insulin Lispro [humaLOG Kwikpen] 0 unit SQ DAILY 01/02/22 Nitroglycerin Sl Tabs [Nitrostat] 0.4 mg SUBLINGUAL Q5M PRN 01/02/22 Omeprazole [PriLOSEC] 10 mg PO DAILY 01/02/22 Rosuvastatin [Crestor] 20 mg PO DAILY 01/02/22 Sacubitril/Valsartan [Entresto 49 mg-51 mg Tablet] 1 each PO DAILY 01/02/22 Spironolactone [Aldactone] 25 mg PO DAILY 01/02/22 Ticagrelor [Brilinta] 90 mg PO BID 01/02/22 Warfarin [Coumadin] 2 mg PO DAILY 01/02/22 carvediloL [Coreg] 3.125 mg PO BID 01/02/22 oxyCODONE HCL/ACETAMINOPHEN [Percocet 7.5-325 mg] 1 tab PO Q12HR PRN 30 Days #60 tab 04/24/22 oxyCODONE HCL/ACETAMINOPHEN [Percocet 7.5-325 mg] 1 tab PO Q12HR PRN 30 Days #60 tab 04/24/22 Controlled Substance Measures - Controlled Substance Measures Is patient prescribed a controlled substance at discharge?: Yes When asked, does pt state using other controlled substances?: No If prescribed controlled substance>3 days was MAPS reviewed?: Yes If Rx opioid, was Start Talking consent form obtained?: Yes Was information provided regarding opioid addiction?: Yes
== END ==
LOC: PNWHC3 12:51
PROVIDERS: ATTEND Specialist
DX: M47.812 Spondylosis without myelopathy or radiculopathy, cervical region (principal); M47.816 Spondylosis without myelopathy or radiculopathy, lumbar region; M51.36 Other intervertebral disc degeneration, lumbar region; Z79.891 Long term (current) use of opiate analgesic; F17.210 Nicotine dependence, cigarettes, uncomplicated
CPT/HCPCS: 99211

== ENCOUNTER → 2022-08-14 | Outpatient (CLI) | payer MEDICARE ==
[2022-08-14 14:19] VITALS: BP 132/74; PULSE 61; RESP 18; TEMP 97.9
--- NOTE | 2022-08-14 14:37 | P.PAINPG ---
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 Pain level is provoked at 4 /10 in intensity, constant, localized in the lumbar spine, achy in character w/o shooting pain. Pain is provoked by weight bearing. Pain is alleviated with medications, CBD oil, repositioning and rest. Patient is currently on Percocet, Advil Patient denies any side effects of the medication(s), denies excessive drowsiness or sleepiness, denies suicidal ideation and reports that the current pain medication is helping to control the pain and improve activities of daily living. Patient denies any motor or sensory deficits. Patient denies any fever or night sweats, denies any change in the bowel movements or urination. Physical Examination: -Constitutional: Cooperative. Not in acute distress . - Neurologic: Cranial nerve II to XII intact. No focal neurological deficits. - Psychatric: Alert & oriented x 3. Matching mood & appropriate affect. Judgment and insight intact. - Musculoskeletal: Cervical spine: Muscle bulk/ tone/ strength in the bilateral upper extremities normal Vertebral body tenderness to palpation over Spurling test positive Distraction test positive Facet loading test positive TTP Thoracic spine Muscle bulk / tone/ strength in the bilateral paraspinal muscles normal Vertebral body tender to palpation over Facet loading test positive TTP Lumbar spine: Motor bulk/ tone/ strength lower extremities , thigh and legs : 5/5 Deep tendon reflexes : Normal Knee Jerk. Normal Ankle Jerk . Vertebral body tenderness to palpation over L3, L4 Lumbar Facet Loading Test positive Straight Leg Raise: positive at 30 degrees right side/ left side Gaenslen's Test positive Sacral spine : Severe tenderness over the Sacroiliac joint: right side / left side Range of motion: Flexion of the lumbar spine <60 degrees Range of motion: Extension of the lumbar spine <20 degrees Gaenslen's Test positive right side / left side Alexandra test: positive right side / left side Thigh Thrust Test positive right side / left side Sacral Thrust Test positive right side / left side Assessment and plan: Chronic LBP secondary to lumbar DDD, spondylosis with facet arthropathy without myelopathy Chronic and current use of high-risk medication (Opioids). The patient was counseled about risk of opioid use, psychological risk associated with opioids and was orally counseled to not overuse , divert or sell medications. Pt is to store medication in a safe location. The patient is counseled against driving while using narcotic medications and also not to use alcohol or any illicit recreational drugs. Patient verbalized understanding that the lack of compliance will result in failure to renew narcotic prescription(s) as well as possible discharge from the clinic Diagnoses, prognosis and treatment options including but not limited to physical therapy, surgical interventions, interventional therapies and medication management including narcotics and adjuvant medication were discussed. All patient questions answered MAPS reviewed and it was appropriate. UDS collected today 08/14/22. Prescription refill for Tqjcujco71/325mg #60 w 1 RF I have spent less than 30 minutes on patient care today. Dr Rivera was available by phone for the evaluation of this patient. The time was used to review the medical records including relevant urine studies and Prescription history (MAPs), review of the available imaging, evaluation and examination of the patient, coordination of care with the medical staff and if applicable referring physicians, as well as creation of the medical record PQRS Narrative: Smoking Status Light tobacco smoker Narcotic Agreement Date Signed 01/02/22 Hx Alcohol Use (MH) No Home Medications: Ambulatory Orders Multivitamin [Men's Multi-Vitamin] 1 tab PO DAILY 08/12/13 Insulin Aspart [NovoLOG Flexpen] See Protocol SQ AC-TID 08/12/21 Insulin Glargine,Hum.rec.anlog [Lantus Solostar Pen] 6 unit SQ HS 08/12/21 Docusate [Colace] 100 mg PO DAILY #30 capsule 08/20/21 Albuterol Inhaler [Ventolin Hfa Inhaler] 1 - 2 puff INHALATION Q6H PRN 01/02/22 Ascorbic Acid [Vitamin C] 500 mg PO DAILY 01/02/22 Empagliflozin [Jardiance] 10 mg PO DAILY 01/02/22 Furosemide [Lasix] 20 mg PO DAILY 01/02/22 Insulin Lispro [humaLOG Kwikpen] 0 unit SQ DAILY 01/02/22 Nitroglycerin Sl Tabs [Nitrostat] 0.4 mg SUBLINGUAL Q5M PRN 01/02/22 Omeprazole [PriLOSEC] 10 mg PO DAILY 01/02/22 Rosuvastatin [Crestor] 20 mg PO DAILY 01/02/22 Sacubitril/Valsartan [Entresto 49 mg-51 mg Tablet] 1 each PO DAILY 01/02/22 Spironolactone [Aldactone] 25 mg PO DAILY 01/02/22 Ticagrelor [Brilinta] 90 mg PO BID 01/02/22 Warfarin [Coumadin] 2 mg PO DAILY 01/02/22 carvediloL [Coreg] 3.125 mg PO BID 01/02/22 Ibuprofen [Advil] 400 mg PO Q8HR PRN 30 Days #90 tab 06/19/22 oxyCODONE HCL/ACETAMINOPHEN [Percocet 10-325 mg] 1 each PO BID PRN 30 Days #60 tab 08/14/22 oxyCODONE HCL/ACETAMINOPHEN [Percocet 10-325 mg] 1 tab PO BID PRN 30 Days #60 tab 08/14/22 Controlled Substance Measures - Controlled Substance Measures Is patient prescribed a controlled substance at discharge?: Yes If prescribed controlled substance>3 days was MAPS reviewed?: Yes
== END ==
LOC: PNWHC3 13:14
PROVIDERS: ATTEND Specialist
DX: M51.36 Other intervertebral disc degeneration, lumbar region (principal); M47.816 Spondylosis without myelopathy or radiculopathy, lumbar region; G89.29 Other chronic pain; Z79.891 Long term (current) use of opiate analgesic; F17.200 Nicotine dependence, unspecified, uncomplicated; Z79.4 Long term (current) use of insulin; Z79.84 Long term (current) use of oral hypoglycemic drugs; Z79.01 Long term (current) use of anticoagulants
CPT/HCPCS: 80307; G0482; G0463; 99212

== ENCOUNTER → 2022-10-09 | Outpatient (CLI) | payer MEDICARE ==
[2022-10-09 15:01] VITALS: BP 126/64; PULSE 66; RESP 18; TEMP 97.7
--- NOTE | 2022-10-09 15:09 | P.PAINPG ---
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 Pain level is provoked at 10 /10 in intensity, constant, localized in the lumbar spine, achy in character w shooting pain down the BLEs. Pain is provoked by weight bearing activity or standing from a sitting position. Pain is alleviated with PT x 2 wks in Mar 2022 which provoked pain, medications, topical, CBD oil, repositioning and rest. Pt states he takes medication about 1-3 times a day. Patient is currently on Percocet, Advil, Voltaren gel Patient denies any side effects of the medication(s), denies excessive drowsiness or sleepiness, denies suicidal ideation and reports that the current pain medication is helping to control the pain and improve activities of daily living. Patient denies any motor or sensory deficits. Patient denies any fever or night sweats, denies any change in the bowel movements or urination. Physical Examination: -Constitutional: Cooperative. Not in acute distress . - Neurologic: Cranial nerve II to XII intact. No focal neurological deficits. - Psychatric: Alert & oriented x 3. Matching mood & appropriate affect. Judgment and insight intact. - Musculoskeletal: Cervical spine: Muscle bulk/ tone/ strength in the bilateral upper extremities normal Vertebral body tenderness to palpation over Spurling test positive Distraction test positive Facet loading test positive TTP Thoracic spine Muscle bulk / tone/ strength in the bilateral paraspinal muscles normal Vertebral body tender to palpation over Facet loading test positive TTP Lumbar spine: Motor bulk/ tone/ strength lower extremities , thigh and legs : 5/5 Deep tendon reflexes : Normal Knee Jerk. Normal Ankle Jerk . Vertebral body tenderness to palpation over L3, L4 Lumbar Facet Loading Test positive Straight Leg Raise: positive at 30 degrees right side/ left side Gaenslen's Test positive Sacral spine : Severe tenderness over the Sacroiliac joint: right side / left side Range of motion: Flexion of the lumbar spine <60 degrees Range of motion: Extension of the lumbar spine <20 degrees Gaenslen's Test positive right side / left side Alexandra test: positive right side / left side Thigh Thrust Test positive right side / left side Sacral Thrust Test positive right side / left side Assessment and plan: Chronic LBP secondary to lumbar DDD, spondylosis with facet arthropathy without myelopathy Chronic and current use of high-risk medication (Opioids). The patient was counseled about risk of opioid use, psychological risk associated with opioids and was orally counseled to not overuse , divert or sell medications. Pt is to store medication in a safe location. The patient is counseled against driving while using narcotic medications and also not to use alcohol or any illicit recreational drugs. Patient verbalized understanding that the lack of compliance will result in failure to renew narcotic prescription(s) as well as possible discharge from the clinic Diagnoses, prognosis and treatment options including but not limited to physical therapy, surgical interventions, interventional therapies and medication management including narcotics and adjuvant medication were discussed. All patient questions answered MAPS reviewed and it was appropriate. UDS from 08/14/22 reviewed and inconsistent. Repeat UDS today 10/09/22. Prescription refill for Percocet 10/325mg #60 w 1 RF I have spent less than 30 minutes on patient care today. Dr Rivera was available by phone for the evaluation of this patient. The time was used to review the medical records including relevant urine studies and Prescription history (MAPs), review of the available imaging, evaluation and examination of the patient, coordination of care with the medical staff and if applicable referring physicians, as well as creation of the medical record PQRS Narrative: Smoking Status Light tobacco smoker Narcotic Agreement Date Signed 01/02/22 Hx Alcohol Use (MH) No Home Medications: Ambulatory Orders Multivitamin [Men's Multi-Vitamin] 1 tab PO DAILY 08/12/13 Insulin Aspart [NovoLOG Flexpen] See Protocol SQ AC-TID 08/12/21 Insulin Glargine,Hum.rec.anlog [Lantus Solostar Pen] 6 unit SQ HS 08/12/21 Docusate [Colace] 100 mg PO DAILY #30 capsule 08/20/21 Albuterol Inhaler [Ventolin Hfa Inhaler] 1 - 2 puff INHALATION Q6H PRN 01/02/22 Ascorbic Acid [Vitamin C] 500 mg PO DAILY 01/02/22 Empagliflozin [Jardiance] 10 mg PO DAILY 01/02/22 Furosemide [Lasix] 20 mg PO DAILY 01/02/22 Insulin Lispro [humaLOG Kwikpen] 0 unit SQ DAILY 01/02/22 Nitroglycerin Sl Tabs [Nitrostat] 0.4 mg SUBLINGUAL Q5M PRN 01/02/22 Omeprazole [PriLOSEC] 10 mg PO DAILY 01/02/22 Rosuvastatin [Crestor] 20 mg PO DAILY 01/02/22 Sacubitril/Valsartan [Entresto 49 mg-51 mg Tablet] 1 each PO DAILY 01/02/22 Spironolactone [Aldactone] 25 mg PO DAILY 01/02/22 Ticagrelor [Brilinta] 90 mg PO BID 01/02/22 Warfarin [Coumadin] 2 mg PO DAILY 01/02/22 carvediloL [Coreg] 3.125 mg PO BID 01/02/22 Ibuprofen [Advil] 400 mg PO Q8HR PRN 30 Days #90 tab 06/19/22 oxyCODONE HCL/ACETAMINOPHEN [Percocet 10-325 mg] 1 each PO BID PRN 30 Days #60 tab 08/14/22 oxyCODONE HCL/ACETAMINOPHEN [Percocet 10-325 mg] 1 tab PO BID PRN 30 Days #60 tab 08/14/22 Controlled Substance Measures - Controlled Substance Measures Is patient prescribed a controlled substance at discharge?: Yes When asked, does pt state using other controlled substances?: No If prescribed controlled substance>3 days was MAPS reviewed?: Yes
== END ==
LOC: PNWHC3 13:18
PROVIDERS: ATTEND Specialist
DX: M51.36 Other intervertebral disc degeneration, lumbar region (principal); M47.816 Spondylosis without myelopathy or radiculopathy, lumbar region; G89.29 Other chronic pain; M53.3 Sacrococcygeal disorders, not elsewhere classified; Z79.891 Long term (current) use of opiate analgesic; F17.200 Nicotine dependence, unspecified, uncomplicated
CPT/HCPCS: 99212

== ENCOUNTER → 2022-12-04 | Outpatient (CLI) | payer MEDICARE ==
[2022-12-04 14:05] VITALS: BP 140/115; PULSE 72; RESP 15; TEMP 98.3
--- NOTE | 2022-12-04 15:18 | P.PAINPG ---
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 Pain level is provoked at 5 /10 in intensity, constant, localized in the lumbar spine, heavy, achy in character w shooting pain down the BLEs. Pain is provoked by weight bearing activity or standing from a sitting position. Pain is alleviated with PT x 2 wks in Mar 2022 which provoked pain, medications, topical, CBD oil, repositioning and rest. Pt states he takes medication about 1-3 times a day. Patient is currently on Percocet, Advil, Voltaren gel Patient denies any side effects of the medication(s), denies excessive drowsiness or sleepiness, denies suicidal ideation and reports that the current pain medication is helping to control the pain and improve activities of daily living. Patient denies any motor or sensory deficits. Patient denies any fever or night sweats, denies any change in the bowel movements or urination. Physical Examination: -Constitutional: Cooperative. Not in acute distress . - Neurologic: Cranial nerve II to XII intact. No focal neurological deficits. - Psychatric: Alert & oriented x 3. Matching mood & appropriate affect. Judgment and insight intact. - Musculoskeletal: Cervical spine: Muscle bulk/ tone/ strength in the bilateral upper extremities normal Vertebral body tenderness to palpation over Spurling test positive Distraction test positive Facet loading test positive TTP Thoracic spine Muscle bulk / tone/ strength in the bilateral paraspinal muscles normal Vertebral body tender to palpation over Facet loading test positive TTP Lumbar spine: Motor bulk/ tone/ strength lower extremities , thigh and legs : 5/5 Deep tendon reflexes : Normal Knee Jerk. Normal Ankle Jerk . Vertebral body tenderness to palpation over L3, L4 Lumbar Facet Loading Test positive Straight Leg Raise: positive at 30 degrees right side/ left side Gaenslen's Test positive Sacral spine : Severe tenderness over the Sacroiliac joint: right side / left side Range of motion: Flexion of the lumbar spine <60 degrees Range of motion: Extension of the lumbar spine <20 degrees Gaenslen's Test positive right side / left side Alexandra test: positive right side / left side Thigh Thrust Test positive right side / left side Sacral Thrust Test positive right side / left side Assessment and plan: Chronic LBP secondary to lumbar DDD, spondylosis with facet arthropathy without myelopathy Chronic and current use of high-risk medication (Opioids). The patient was counseled about risk of opioid use, psychological risk associated with opioids and was orally counseled to not overuse , divert or sell medications. Pt is to store medication in a safe location. The patient is counseled against driving while using narcotic medicati ons and also not to use alcohol or any illicit recreational drugs. Patient verbalized understanding that the lack of compliance will result in failure to renew narcotic prescription(s) as well as possible discharge from the clinic Diagnoses, prognosis and treatment options including but not limited to physical therapy, surgical interventions, interventional therapies and medication management including narcotics and adjuvant medication were discussed. All patient questions answered MAPS reviewed and it was appropriate. UDS from 10/09/22 reviewed and consistent. Prescription refill for Percocet 10/325mg #60 w 1 RF I have spent less than 30 minutes on patient care today. Dr Rivera was available by phone for the evaluation of this patient. The time was used to review the medical records including relevant urine studies and Prescription history (MAPs), review of the available imaging, evaluation and examination of the patient, coordination of care with the medical staff and if applicable referring physicians, as well as creation of the medical record PQRS Narrative: Smoking Status Light tobacco smoker Narcotic Agreement Date Signed 01/02/22 Hx Alcohol Use (MH) No Home Medications: Ambulatory Orders Multivitamin [Men's Multi-Vitamin] 1 tab PO DAILY 08/12/13 Insulin Aspart [NovoLOG Flexpen] See Protocol SQ AC-TID 08/12/21 Insulin Glargine,Hum.rec.anlog [Lantus Solostar Pen] 6 unit SQ HS 08/12/21 Docusate [Colace] 100 mg PO DAILY #30 capsule 08/20/21 Albuterol Inhaler [Ventolin Hfa Inhaler] 1 - 2 puff INHALATION Q6H PRN 01/02/22 Ascorbic Acid [Vitamin C] 500 mg PO DAILY 01/02/22 Empagliflozin [Jardiance] 10 mg PO DAILY 01/02/22 Furosemide [Lasix] 20 mg PO DAILY 01/02/22 Insulin Lispro [humaLOG Kwikpen] 0 unit SQ DAILY 01/02/22 Nitroglycerin Sl Tabs [Nitrostat] 0.4 mg SUBLINGUAL Q5M PRN 01/02/22 Omeprazole [PriLOSEC] 10 mg PO DAILY 01/02/22 Rosuvastatin [Crestor] 20 mg PO DAILY 01/02/22 Sacubitril/Valsartan [Entresto 49 mg-51 mg Tablet] 1 each PO DAILY 01/02/22 Spironolactone [Aldactone] 25 mg PO DAILY 01/02/22 Ticagrelor [Brilinta] 90 mg PO BID 01/02/22 Warfarin [Coumadin] 2 mg PO DAILY 01/02/22 carvediloL [Coreg] 3.125 mg PO BID 01/02/22 Ibuprofen [Advil] 400 mg PO Q8HR PRN 30 Days #90 tab 06/19/22 oxyCODONE HCL/ACETAMINOPHEN [Percocet 10-325 mg] 1 each PO BID PRN 30 Days #60 tab 12/04/22 oxyCODONE HCL/ACETAMINOPHEN [Percocet 10-325 mg] 1 tab PO BID PRN 30 Days #60 tab 12/04/22 Controlled Substance Measures - Controlled Substance Measures Is patient prescribed a controlled substance at discharge?: Yes When asked, does pt state using other controlled substances?: No If prescribed controlled substance>3 days was MAPS reviewed?: Yes
== END ==
LOC: PNWHC3 13:33
PROVIDERS: ATTEND Specialist
DX: M51.36 Other intervertebral disc degeneration, lumbar region (principal); M47.816 Spondylosis without myelopathy or radiculopathy, lumbar region; G89.29 Other chronic pain; Z79.891 Long term (current) use of opiate analgesic; F17.200 Nicotine dependence, unspecified, uncomplicated
CPT/HCPCS: 99211

== ENCOUNTER → 2023-01-29 | Outpatient (CLI) | payer MEDICARE ==
[2023-01-29 13:46] VITALS: BP 134/85; PULSE 88; RESP 15; TEMP 97.5
--- NOTE | 2023-01-29 14:35 | P.PAINPG ---
PQRS Measure Charge Sheet Comment: HISTORY OF PRESENT ILLNESS: 67 yr old female presents today w severe and chronic LBP secondary to DDD, spondylosis and facet arthropathy without myelopathy for medication refills. Pt states pain level is provoked at 5/10 in intensity, constant, localized in the lower lumbar spine, sharp in character w shooting pain towards the RLE. Pain is provoked by over activity. Pain is alleviated by PT x 6 wks in Nov 2022, medications, repositioning and rest. Oswestry axial pain score at 13. Interventional procedures include CONNIE L4-L5 x1 Medications include [place] 5/325mg REVIEW OF ORGAN SYSTEMS: CONSTITUTIONAL: No fevers or chills. No recent weight loss. NEUROLOGICAL: + numbness and tingling along the distal extremities. No seizure disorders or headaches. MUSCULOSKELETAL: + pain PSYCHIATRIC: Denies current depression or suicidal thoughts. Physical Examinations : Constitutional : Cooperative , not in acute distress . Neurologic : Cranial nerve II to XII intact. No focal neurological deficits. Psychiatric : alert & oriented x 3. Matching mood & appropriate affect. Judgment & insight intact. Musculoskeletal : Cervical Spine Motor strength in the deltoid and biceps: Normal right side. Normal Left side Motor strength biceps and the wrist extensors: Normal right side . Normal left side Motor strength in the triceps muscle: Normal right side. Normal left side Deep tendon reflexes: Normal at the biceps. Normal at Brachioradialis. Normal at triceps Vertebral body tenderness to deep palpation over Cervical facet loading test: positive bilaterally Spurling test: positive bilaterally Neck distraction test: positive bilaterally Marcelina sign: positive bilaterally Lumbar spine Motor strength lower extremities ,thigh and legs 5/5 Right side , 5/5 Left side Deep tendon reflexes : Normal Knee Jerk. Normal Ankle Jerk Vertebral body tenderness over L4 Sandhu Test positive Lumbar facet Loading Test: positive Right / positive Left Range of motion of the lumbar spine Flexion 30 degrees, extension 10 degrees Straight Leg Raise test: Left/ Right positive at 35 degrees Alexandra test: positive right / positive left. Severe tenderness over the Sacroiliac joint on the Right / Left sides Gaenslen test: positive bilaterally Seated flexion test: positive bilaterally. Sacral spine : Severe tenderness over the Sacroiliac joint: right side / left side Range of motion: Flexion of the lumbar spine <60 degrees Range of motion: Extension of the lumbar spine <20 degrees Gaenslen's Test positive Forest's Test positive Alexandra test: positive right side / left side Thigh Thrust Test Sacral Thrust Test Imaging: MRI non contrast of the lumbar spine reviewed Assessment/ Plan : Lumbar DDD Recommendation of medication management. Percocet 10/325mg #60 w 1 RF. Use, side effects, adverse reactions in safe storage discussed. Opiate/narcotic agreement on file. UDS from 10/09/22 reviewed and consistent. All questions answered. I have spent greater than 30 minutes on patient care today. Dr Rivera was avai lable by phone for the evaluation of this patient. The time was used to review the medical records including relevant urine studies and Prescription history (MAPs), review of the available imaging, evaluation and examination of the patient, coordination of care with the medical staff and if applicable referring physicians, as well as creation of the medical record PQRS Narrative: Smoking Status Light tobacco smoker Narcotic Agreement Date Signed 01/02/22 Hx Alcohol Use (MH) No Home Medications: Ambulatory Orders Multivitamin [Men's Multi-Vitamin] 1 tab PO DAILY 08/12/13 Insulin Aspart [NovoLOG Flexpen] See Protocol SQ AC-TID 08/12/21 Insulin Glargine,Hum.rec.anlog [Lantus Solostar Pen] 6 unit SQ HS 08/12/21 Docusate [Colace] 100 mg PO DAILY #30 capsule 08/20/21 Albuterol Inhaler [Ventolin Hfa Inhaler] 1 - 2 puff INHALATION Q6H PRN 01/02/22 Ascorbic Acid [Vitamin C] 500 mg PO DAILY 01/02/22 Empagliflozin [Jardiance] 10 mg PO DAILY 01/02/22 Furosemide [Lasix] 20 mg PO DAILY 01/02/22 Insulin Lispro [humaLOG Kwikpen] 0 unit SQ DAILY 01/02/22 Nitroglycerin Sl Tabs [Nitrostat] 0.4 mg SUBLINGUAL Q5M PRN 01/02/22 Omeprazole [PriLOSEC] 10 mg PO DAILY 01/02/22 Rosuvastatin [Crestor] 20 mg PO DAILY 01/02/22 Sacubitril/Valsartan [Entresto 49 mg-51 mg Tablet] 1 each PO DAILY 01/02/22 Spironolactone [Aldactone] 25 mg PO DAILY 01/02/22 Ticagrelor [Brilinta] 90 mg PO BID 01/02/22 Warfarin [Coumadin] 2 mg PO DAILY 01/02/22 carvediloL [Coreg] 3.125 mg PO BID 01/02/22 Ibuprofen [Advil] 400 mg PO Q8HR PRN 30 Days #90 tab 06/19/22 Cyclobenzaprine [Flexeril] 5 mg PO HS PRN 30 Days #60 tab 01/29/23 oxyCODONE HCL/ACETAMINOPHEN [Percocet 10-325 mg] 1 each PO BID PRN 30 Days #60 tab 01/29/23 oxyCODONE HCL/ACETAMINOPHEN [Percocet 10-325 mg] 1 tab PO BID PRN 30 Days #60 tab 01/29/23 Controlled Substance Measures - Controlled Substance Measures Is patient prescribed a controlled substance at discharge?: Yes
== END ==
LOC: PNWHC3 12:58
PROVIDERS: ATTEND Specialist
DX: M51.36 Other intervertebral disc degeneration, lumbar region (principal); F17.200 Nicotine dependence, unspecified, uncomplicated
CPT/HCPCS: 99211

== ENCOUNTER → 2023-03-26 | Outpatient (CLI) | payer MEDICARE ==
--- NOTE | 2023-03-26 13:43 | P.PAINPG ---
PQRS Measure Charge Sheet Comment: HISTORY OF PRESENT ILLNESS: A 67 yr old male w brother at side presents today w severe and chronic LBP secondary to DDD, spondylosis and facet arthropathy without myelopathy for medication refills. Pt states pain level is provoked at 8/10 in intensity, constant, localized in the lower lumbar spine, predominantly axial, sharp in character w occasional shooting pain towards the RLE. Pain is provoked by over activity. Pain is alleviated by PT x 6 wks in Nov 2022, physician guided exercises multiple times weekly since Nov 2022, medications, repositioning and rest. Oswestry axial pain score at 13. Interventional procedures include CONNIE L4-L5 x1 Medications include [place] 5/325mg REVIEW OF ORGAN SYSTEMS: CONSTITUTIONAL: No fevers or chills. No recent weight loss. NEUROLOGICAL: + numbness and tingling along the distal extremities. No seizure disorders or headaches. MUSCULOSKELETAL: + pain PSYCHIATRIC: Denies current depression or suicidal thoughts. Physical Examinations : Constitutional : Cooperative , not in acute distress . Neurologic : Cranial nerve II to XII intact. No focal neurological deficits. Psychiatric : alert & oriented x 3. Matching mood & appropriate affect. Judgment & insight intact. Musculoskeletal : Cervical Spine Motor strength in the deltoid and biceps: Normal right side. Normal Left side Motor strength biceps and the wrist extensors: Normal right side . Normal left side Motor strength in the triceps muscle: Normal right side. Normal left side Deep tendon reflexes: Normal at the biceps. Normal at Brachioradialis. Normal at triceps Vertebral body tenderness to deep palpation over Cervical facet loading test: positive bilaterally Spurling test: positive bilaterally Neck distraction test: positive bilaterally Marcelina sign: positive bilaterally Lumbar spine Motor strength lower extremities ,thigh and legs 5/5 Right side , 5/5 Left side Deep tendon reflexes : Normal Knee Jerk. Normal Ankle Jerk Vertebral body tenderness over L4 Sandhu Test positive Lumbar facet Loading Test: positive Right / positive Left Range of motion of the lumbar spine Flexion 30 degrees, extension 10 degrees Straight Leg Raise test: Left/ Right positive at 35 degrees Alexandra test: positive right / positive left. Severe tenderness over the Sacroiliac joint on the Right / Left sides Gaenslen test: positive bilaterally Seated flexion test: positive bilaterally. Sacral spine : Severe tenderness over the Sacroiliac joint: right side / left side Range of motion: Flexion of the lumbar spine <60 degrees Range of motion: Extension of the lumbar spine <20 degrees Gaenslen's Test positive Forest's Test positive Alexandra test: positive right side / left side Thigh Thrust Test Sacral Thrust Test Imaging: MRI non contrast of the lumbar spine reviewed Assessment/ Plan : Lumbar DDD Recommendation of CONNIE L4-L5 #2 and medication management. Percocet 10/325mg #60 w 1 RF. May need a series of injections for optimal pain relief. Risks, benefits of procedure discussed and patient verbalized understanding. Protocol for discontinuation/continuation of medications surrounding procedure discussed. Use, side effects, adverse reactions in safe storage discussed. Opiate/narcotic agreement on file. UDS collected 03/26/23. All questions answered. I have spent greater than 30 minutes on patient care today. Dr Rivera was available by phone for the evaluation of this patient. The time was used to review the medical records including relevant urine studies and Prescription history (MAPs), review of the available imaging, evaluation and examination of the patient, coordination of care with the medical staff and if applicable referring physicians, as well as creation of the medical record PQRS Narrative: Smoking Status Light tobacco smoker Narcotic Agreement Date Signed 01/02/22 Hx Alcohol Use (MH) No Home Medications: Ambulatory Orders Multivitamin [Men's Multi-Vitamin] 1 tab PO DAILY 08/12/13 Insulin Aspart [NovoLOG Flexpen] See Protocol SQ AC-TID 08/12/21 Insulin Glargine,Hum.rec.anlog [Lantus Solostar Pen] 6 unit SQ HS 08/12/21 Docusate [Colace] 100 mg PO DAILY #30 capsule 08/20/21 Albuterol Inhaler [Ventolin Hfa Inhaler] 1 - 2 puff INHALATION Q6H PRN 01/02/22 Ascorbic Acid [Vitamin C] 500 mg PO DAILY 01/02/22 Empagliflozin [Jardiance] 10 mg PO DAILY 01/02/22 Furosemide [Lasix] 20 mg PO DAILY 01/02/22 Insulin Lispro [humaLOG Kwikpen] 0 unit SQ DAILY 01/02/22 Nitroglycerin Sl Tabs [Nitrostat] 0.4 mg SUBLINGUAL Q5M PRN 01/02/22 Omeprazole [PriLOSEC] 10 mg PO DAILY 01/02/22 Rosuvastatin [Crestor] 20 mg PO DAILY 01/02/22 Sacubitril/Valsartan [Entresto 49 mg-51 mg Tablet] 1 each PO DAILY 01/02/22 Spironolactone [Aldactone] 25 mg PO DAILY 01/02/22 Ticagrelor [Brilinta] 90 mg PO BID 01/02/22 Warfarin [Coumadin] 2 mg PO DAILY 01/02/22 carvediloL [Coreg] 3.125 mg PO BID 01/02/22 Ibuprofen [Advil] 400 mg PO Q8HR PRN 30 Days #90 tab 06/19/22 Cyclobenzaprine [Flexeril] 5 mg PO HS PRN 30 Days #60 tab 01/29/23 oxyCODONE HCL/ACETAMINOPHEN [Percocet 10-325 mg] 1 each PO BID PRN 30 Days #60 tab 03/26/23 oxyCODONE HCL/ACETAMINOPHEN [Percocet 10-325 mg] 1 tab PO BID PRN 30 Days #60 tab 03/26/23 Controlled Substance Measures - Controlled Substance Measures Is patient prescribed a controlled substance at discharge?: Yes When asked, does pt state using other controlled substances?: No If prescribed controlled substance>3 days was MAPS reviewed?: Yes
[2023-03-26 14:08] VITALS: BP 147/70; PULSE 75; RESP 16; TEMP 98.4
== END ==
LOC: PNWHC3 12:58
PROVIDERS: ATTEND Specialist
DX: M51.36 Other intervertebral disc degeneration, lumbar region (principal); M54.32 Sciatica, left side; F17.200 Nicotine dependence, unspecified, uncomplicated; Z51.81 Encounter for therapeutic drug level monitoring
CPT/HCPCS: 80307; 99211

== ENCOUNTER 2023-04-24 08:24 | Day surgery (SDC) | payer MEDICARE ==
[~2023-04-24 08:24] MED LIST changes: -LIDOCAINE 1% (10MG/ML) FOR IV START INTRADERMA PRN
[2023-04-24 09:13] LABS: Glucose,Whole Blood 158 mg/dL (70-110)
[2023-04-24 09:18] VITALS: TEMP 97
[2023-04-24 09:23] LABS: Prothrombin Time 11.4 sec (10.0-12.5)
[2023-04-24] MEDS ORDERED: ROPIVACAINE 5MG/ML 20ML VIAL ONE (09:49)
[2023-04-24] MEDS ORDERED: IOPAMIDOL M300 15ML VIAL ONE (09:49)
[2023-04-24] MEDS ORDERED: methylPREDNISolone ACETATE 80 MG/ML 1 ML VIAL ONE (09:49)
[2023-04-24] MEDS ORDERED: IV FLUID CONTINUATION 1,000 ML IV ONE (10:06)
--- NOTE | 2023-04-24 10:08 | P.PCN ---
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 3-lumbar spinal stenosis POSTOPERATIVE DIAGNOSIS: 1-lumbar degenerative disc disease. 2-lumbar spondylosis with facet arthropathy without myelopathy. 3-lumbar spinal stenosis. PROCEDURE Injection of radio contrast material into L5-S1 interspace, interpretation of epidurogram, injection of steroid at L5-S1 epidural space under fluoroscopic guidance. ANESTHESIA: Lidocaine 1% subcutaneously. In OR continuous pulse ox, EKG, blood pressure and verbal communication was maintained with the patient. EBL: Minimal PROCEDURE INDICATION: Before the procedure were discussed with the patient detai led procedure, alternatives, complications including infection, bleeding, nerve damage, paralysis all of which could be permanent. Patient understands and all questions were answered. PROCEDURE DESCRIPTION : After getting consent, patient in OR in prone position. Back was prepped with chlorhexidine and draped in sterile fashion. After injecting 10 mL of 1% lidocaine subcutaneously, a 20-gauge Tuohy needle was introduced at L4 5 interspace with loss of resistance technique using a syringe filled with air. Unable to get into the epidural space at L4 5 level because of the surgical changes. Decided to inject at L5-S1 level, Negative CSF, negative blood, negative paresthesia. Needle position was confirmed with AP and lateral view of the fluoroscope. After repeat negative aspiration 2 mL of Omnipaque 200 water soluble contrast was injected. Contrast was noted in the epidural space. No contrast was noted into intrathecal or intravascular space. After repeat negative aspiration 6 mL solution was injected intermittently which consists of 5 mL of preservative-free normal saline mixed with 1 mL of 80 mg Depo-Medrol. Needle was withdrawn intact. Skin was cleansed and Band-Aids was applied. DISPOSITION / PLANS: The patient tolerated the procedure well. No complication. The patient was placed in a supine position and transferred to the recovery area in a stable condition for observation. There was no evidence of lower extremity motor or sensory deficit after the procedure. Patient was discharged from the recovery room after meeting discharge criteria. Home discharge instructions were given to the patient by the staff. The patient was reexamined prior to discharge. The patient will schedule a follow up in the clinic in 2-4 weeks. PLEASE SCHEDULE NEXT CONNIE CAUDAL BECAUSE OF POST SURGICAL CHANGES.
[2023-04-24 10:28] VITALS: RESP 18
[2023-04-24 10:52] VITALS: BP 142/72; PULSE 78
--- NOTE | 2023-04-25 12:47 | FL ---
Fluoroscopy INDICATION: Pain FINDINGS: Fluoroscopy time: 17 seconds. Total dose area product (DAP) in uGy*m?, mGy*cm? (or similar): 0.27839 Images obtained: 3. IMPRESSION: 1. Documentation of fluoroscopy.
== END 2023-04-24 10:42 | disposition home or self-care (01) ==
LOC: ORPAIN 08:24
PROVIDERS: ATTEND Pain Medicine Interventional Pain Medicine
DX: M51.36 Other intervertebral disc degeneration, lumbar region (principal); M47.816 Spondylosis without myelopathy or radiculopathy, lumbar region; M48.061 Spinal stenosis, lumbar region without neurogenic claudication; E11.9 Type 2 diabetes mellitus without complications; Z79.4 Long term (current) use of insulin; Z79.01 Long term (current) use of anticoagulants; Z88.8 Allergy status to other drugs, medicaments and biological substances
CPT/HCPCS: 85610; 62323; J1040; Q9967; J2795

== ENCOUNTER → 2023-05-21 | Outpatient (CLI) | payer MEDICARE ==
[2023-05-21 13:43] VITALS: BP 158/71; PULSE 72; RESP 16
--- NOTE | 2023-05-21 15:01 | P.PAINPG ---
PQRS Measure Charge Sheet Comment: HISTORY OF PRESENT ILLNESS: A 78 yr old male w brother at [facility] presents today w severe and chronic LBP secondary to DDD, spondylosis and facet arthropathy without myelopathy for medication refills and evaluation s/p CONNIE L5-S1 #1. Pt states he experienced 60% pain relief x 4 wks s/p procedure. Pt states pain level is provoked at 5 /10 in intensity, constant, localized in the lower lumbar spine, predominantly axial, sharp in character w occasional shooting pain towards the back of the RLE. Pain is provoked by over activity. Pain is alleviated by PT x 6 wks in Nov 2022, physician guided exercises multiple times weekly since Nov 2022, medications, repositioning and rest. Oswestry axial pain score at 12. Interventional procedures include CONNIE L4-L5 x1, L5-S1 x1 Medications include [place] 5/325mg REVIEW OF ORGAN SYSTEMS: CONSTITUTIONAL: No fevers or chills. No recent weight loss. NEUROLOGICAL: + numbness and tingling along the distal extremities. No seizure disorders or headaches. MUSCULOSKELETAL: + pain PSYCHIATRIC: Denies current depression or suicidal thoughts. Physical Examinations : Constitutional : Cooperative , not in acute distress . Neurologic : Cranial nerve II to XII intact. No focal neurological deficits. Psychiatric : alert & oriented x 3. Matching mood & appropriate affect. Judgment & insight intact. Musculoskeletal : Cervical Spine Motor strength in the deltoid and biceps: Normal right side. Normal Left side Motor strength biceps and the wrist extensors: Normal right side . Normal left side Motor strength in the triceps muscle: Normal right side. Normal left side Deep tendon reflexes: Normal at the biceps. Normal at Brachioradialis. Normal at triceps Vertebral body tenderness to deep palpation over Cervical facet loading test: positive bilaterally Spurling test: positive bilaterally Neck distraction test: positive bilaterally Marcelina sign: positive bilaterally Lumbar spine Motor strength lower extremities ,thigh and legs 5/5 Right side , 5/5 Left side Deep tendon reflexes : Normal Knee Jerk. Normal Ankle Jerk Vertebral body tenderness Sandhu Test positive Lumbar facet Loading Test: positive Right / positive Left Range of motion of the lumbar spine Flexion 30 degrees, extension 10 degrees Straight Leg Raise test: Left/ Right positive at 35 degrees Alexandra test: positive right / positive left. Severe tenderness over the Sacroiliac joint on the Right / Left sides Gaenslen test: positive bilaterally Seated flexion test: positive bilaterally. Sacral spine : Severe tenderness over the Sacroiliac joint: right side / left side Range of motion: Flexion of the lumbar spine <60 degrees Range of motion: Extension of the lumbar spine <20 degrees Gaenslen's Test positive Forest's Test positive Alexandra test: positive right side / left side Thigh Thrust Test Sacral Thrust Test Imaging: MRI non contrast of the lumbar spine reviewed Assessment/ Plan : Lumbar DDD Recommendation and medication management. Percocet 10/325mg #60 w 1 RF. May need a series of injections for optimal pain relief. Risks, benefits of procedure discussed and patient verbalized understanding. Protocol for discontinuation/continuation of medications surrounding procedure discussed. Use, side effects, adverse reactions in safe storage discussed. Opiate/narcotic agreement on file. UDS fr 03/26/23 reviewed and consistent. All questions answered. I have spent greater than 30 minutes on patient care today. Dr Rivera was a vailable by phone for the evaluation of this patient. The time was used to review the medical records including relevant urine studies and Prescription history (MAPs), review of the available imaging, evaluation and examination of the patient, coordination of care with the medical staff and if applicable referring physicians, as well as creation of the medical record PQRS Narrative: Smoking Status Light tobacco smoker Narcotic Agreement Date Signed 12/04/22 Hx Alcohol Use (MH) No Home Medications: Ambulatory Orders Multivitamin [Men's Multi-Vitamin] 1 tab PO DAILY 08/12/13 Insulin Aspart [NovoLOG Flexpen] See Protocol SQ AC-TID 08/12/21 Insulin Glargine,Hum.rec.anlog [Lantus Solostar Pen] 40 unit SQ BID 08/12/21 Docusate [Colace] 100 mg PO DAILY #30 capsule 08/20/21 Albuterol Inhaler [Ventolin Hfa Inhaler] 1 - 2 puff INHALATION Q6H PRN 01/02/22 Ascorbic Acid [Vitamin C] 500 mg PO DAILY 01/02/22 Empagliflozin [Jardiance] 10 mg PO DAILY 01/02/22 Furosemide [Lasix] 20 mg PO DAILY 01/02/22 Nitroglycerin Sl Tabs [Nitrostat] 0.4 mg SUBLINGUAL Q5M PRN 01/02/22 Omeprazole [PriLOSEC] 10 mg PO DAILY 01/02/22 Rosuvastatin [Crestor] 20 mg PO DAILY 01/02/22 Sacubitril/Valsartan [Entresto 49 mg-51 mg Tablet] 1 each PO DAILY 01/02/22 Spironolactone [Aldactone] 25 mg PO DAILY 01/02/22 Ticagrelor [Brilinta] 90 mg PO BID 01/02/22 Warfarin [Coumadin] 2 mg PO DAILY 01/02/22 carvediloL [Coreg] 3.125 mg PO BID 01/02/22 Ibuprofen [Advil] 400 mg PO Q8HR PRN 30 Days #90 tab 06/19/22 Cyclobenzaprine [Flexeril] 5 mg PO HS PRN 30 Days #60 tab 03/26/23 oxyCODONE HCL/ACETAMINOPHEN [Percocet 10-325 mg] 1 tab PO BID PRN 30 Days #60 tab 05/21/23 oxyCODONE HCL/ACETAMINOPHEN [Percocet 10-325 mg] 1 tab PO BID PRN 30 Days #60 tab 05/21/23 Controlled Substance Measures - Controlled Substance Measures Is patient prescribed a controlled substance at discharge?: Yes When asked, does pt state using other controlled substances?: No If prescribed controlled substance>3 days was MAPS reviewed?: Yes
== END ==
LOC: PNWHC3 12:57
PROVIDERS: ATTEND Anesthesiology
DX: M51.36 Other intervertebral disc degeneration, lumbar region (principal); M47.816 Spondylosis without myelopathy or radiculopathy, lumbar region; F17.200 Nicotine dependence, unspecified, uncomplicated; Z88.8 Allergy status to other drugs, medicaments and biological substances
CPT/HCPCS: 99211

== ENCOUNTER → 2023-07-16 | Outpatient (CLI) | payer MEDICARE ==
[2023-07-16 13:52] VITALS: BP 137/84; RESP 16
[2023-07-16 13:53] VITALS: PULSE 86; TEMP 98
--- NOTE | 2023-07-16 14:27 | P.PAINPG ---
PQRS Measure Charge Sheet Comment: HISTORY OF PRESENT ILLNESS: A 78 yr old male w brother at side presents today w severe and chronic LBP secondary to DDD, spondylosis and facet arthropathy without myelopathy for medication refills . Pt states pain level is provoked at 8 /10 in intensity, constant, localized in the lower lumbar spine, predominantly axial, sharp in character w occasional shooting pain towards the back of the RLE. Pain is provoked by over activity. Pain is alleviated by PT x 6 wks in Nov 2022, physician guided exercises multiple times weekly since Nov 2022, medications, repositioning and rest. Oswestry axial pain score at 16. Interventional procedures include CONNIE L4-L5 x1, L5-S1 x1 Medications include [place] 5/325mg REVIEW OF ORGAN SYSTEMS: CONSTITUTIONAL: No fevers or chills. No recent weight loss. NEUROLOGICAL: + numbness and tingling along the distal extremities. No seizure disorders or headaches. MUSCULOSKELETAL: + pain PSYCHIATRIC: Denies current depression or suicidal thoughts. Physical Examinations : Constitutional : Cooperative , not in acute distress . Neurologic : Cranial nerve II to XII intact. No focal neurological deficits. Psychiatric : alert & oriented x 3. Matching mood & appropriate affect. Judgment & insight intact. Musculoskeletal : Cervical Spine Motor strength in the deltoid and biceps: Normal right side. Normal Left side Motor strength biceps and the wrist extensors: Normal right side . Normal left side Motor strength in the triceps muscle: Normal right side. Normal left side Deep tendon reflexes: Normal at the biceps. Normal at Brachioradialis. Normal at triceps Vertebral body tenderness to deep palpation over Cervical facet loading test: positive bilaterally Spurling test: positive bilaterally Neck distraction test: positive bilaterally Marcelina sign: positive bilaterally Lumbar spine Motor strength lower extremities ,thigh and legs 5/5 Right side , 5/5 Left side Deep tendon reflexes : Normal Knee Jerk. Normal Ankle Jerk Vertebral body tenderness Sandhu Test positive Lumbar facet Loading Test: positive Right / positive Left Range of motion of the lumbar spine Flexion 30 degrees, extension 10 degrees Straight Leg Raise test: Left/ Right positive at 35 degrees Alexandra test: positive right / positive left. Severe tenderness over the Sacroiliac joint on the Right / Left sides Gaenslen test: positive bilaterally Seated flexion test: positive bilaterally. Sacral spine : Severe tenderness over the Sacroiliac joint: right side / left side Range of motion: Flexion of the lumbar spine <60 degrees Range of motion: Extension of the lumbar spine <20 degrees Gaenslen's Test positive Forest's Test positive Alexandra test: positive right side / left side Thigh Thrust Test Sacral Thrust Test Imaging: MRI non contrast of the lumbar spine reviewed Assessment/ Plan : Lumbar DDD Recommendation of medication management and PT x 6 wks M51.36. Percocet 10/325mg #90 w 1 RF. New narcotic agreement signed 07/16/23. UDS fr 03/26/23 reviewed and consistent. All questions answered. I have spent greater than 30 minutes on patient care today. Dr Rivera was available by phone for the evaluation of this patient. The time was used to review the medical records including relevant urine studies and Prescription history (MAPs), review of the available imaging, evaluation and examination of the patient, coordination of care with the medical staff and if applicable referring physicians, as well as creation of the medical record PQRS Narrative: Smoking Status Light tobacco smoker Narcotic Agreement Date Signed 12/04/22 Hx Alcohol Use (MH) No Home Medications: Ambulatory Orders Multivitamin [Men's Multi-Vitamin] 1 tab PO DAILY 08/12/13 Insulin Aspart [NovoLOG Flexpen] See Protocol SQ AC-TID 08/12/21 Insulin Glargine,Hum.rec.anlog [Lantus Solostar Pen] 40 unit SQ BID 08/12/21 Docusate [Colace] 100 mg PO DAILY #30 capsule 08/20/21 Albuterol Inhaler [Ventolin Hfa Inhaler] 1 - 2 puff INHALATION Q6H PRN 01/02/22 Ascorbic Acid [Vitamin C] 500 mg PO DAILY 01/02/22 Empagliflozin [Jardiance] 10 mg PO DAILY 01/02/22 Furosemide [Lasix] 20 mg PO DAILY 01/02/22 Nitroglycerin Sl Tabs [Nitrostat] 0.4 mg SUBLINGUAL Q5M PRN 01/02/22 Omeprazole [PriLOSEC] 10 mg PO DAILY 01/02/22 Rosuvastatin [Crestor] 20 mg PO DAILY 01/02/22 Sacubitril/Valsartan [Entresto 49 mg-51 mg Tablet] 1 each PO DAILY 01/02/22 Spironolactone [Aldactone] 25 mg PO DAILY 01/02/22 Ticagrelor [Brilinta] 90 mg PO BID 01/02/22 Warfarin [Coumadin] 2 mg PO DAILY 01/02/22 carvediloL [Coreg] 3.125 mg PO BID 01/02/22 Ibuprofen [Advil] 400 mg PO Q8HR PRN 30 Days #90 tab 06/19/22 Cyclobenzaprine [Flexeril] 5 mg PO HS PRN 30 Days #60 tab 03/26/23 oxyCODONE HCL/ACETAMINOPHEN [Percocet 10-325 mg] 1 tab PO BID PRN 30 Days #60 tab 05/21/23 oxyCODONE HCL/ACETAMINOPHEN [Percocet 10-325 mg] 1 tab PO BID PRN 30 Days #60 tab 05/21/23 Controlled Substance Measures - Controlled Substance Measures Is patient prescribed a controlled substance at discharge?: Yes When asked, does pt state using other controlled substances?: No If prescribed controlled substance>3 days was MAPS reviewed?: Yes If Rx opioid, was Start Talking consent form obtained?: Yes Was information provided regarding opioid addiction?: Yes
== END ==
LOC: PNWHC3 13:01
PROVIDERS: ATTEND Specialist
DX: M51.36 Other intervertebral disc degeneration, lumbar region (principal); F17.200 Nicotine dependence, unspecified, uncomplicated; M47.816 Spondylosis without myelopathy or radiculopathy, lumbar region; G89.29 Other chronic pain; Z88.8 Allergy status to other drugs, medicaments and biological substances
CPT/HCPCS: 99211

== ENCOUNTER → 2023-09-10 | Outpatient (CLI) | payer MEDICARE ==
--- NOTE | 2023-09-10 15:41 | XR ---
EXAMINATION TYPE: XR knee limited RT DATE OF EXAM: 09/10/2023 COMPARISON: None HISTORY: Osteoarthritis, pain TECHNIQUE: 2 view right knee FINDINGS: There is narrowing of the lateral compartment joint space. Milder narrowing of the medial c ompartment joint space is present. No joint effusion is evident. Small posterior superior patellar sp ur is present. Vascular calcification is present. No acute fracture or dislocation is evident. Soft tissues appear n ormal. Follow up exams can be performed as clinically indicated. IMPRESSION: 1. Moderate degenerative changes greater in the lateral compartment. 2. No acute osseous abnormality.
== END | disposition home or self-care (01) ==
LOC: RADXRMAIN 14:19
PROVIDERS: ATTEND Physician Assistant Medical
DX: M17.11 Unilateral primary osteoarthritis, right knee (principal)

== ENCOUNTER → 2023-09-10 | Outpatient (CLI) | payer MEDICARE ==
--- NOTE | 2023-09-10 14:18 | P.PAINPG ---
PQRS Measure Charge Sheet Comment: HISTORY OF PRESENT ILLNESS: A 78 yr old male w brother at side presents today w severe and chronic LBP secondary to DDD, spondylosis and facet arthropathy without myelopathy for medication refills . Pt states pain level is provoked at 9 /10 in intensity, constant, localized in the lower lumbar spine and R knee, predominantly axial, sharp in character w occasional shooting pain from the lower back towards the back of the RLE. Pain is provoked by over activity. Pain is alleviated by PT x 6 wks in Nov 2022 (lumbar) and PT x 3 wks (R knee) which he is currently in, physician guided exercises multiple times weekly since Nov 2022, medications, repositioning and rest. Oswestry axial pain score at 17. Interventional procedures include CONNIE L4-L5 x1, L5-S1 x1 Medications include [place] 5/325mg REVIEW OF ORGAN SYSTEMS: CONSTITUTIONAL: No fevers or chills. No recent weight loss. NEUROLOGICAL: + numbness and tingling along the distal extremities. No seizure disorders or headaches. MUSCULOSKELETAL: + pain PSYCHIATRIC: Denies current depression or suicidal thoughts. Physical Examinations : Constitutional : Cooperative , not in acute distress . Neurologic : Cranial nerve II to XII intact. No focal neurological deficits. Psychiatric : alert & oriented x 3. Matching mood & appropriate affect. Judgment & insight intact. Musculoskeletal : Cervical Spine Motor strength in the deltoid and biceps: Normal right side. Normal Left side Motor strength biceps and the wrist extensors: Normal right side . Normal left side Motor strength in the triceps muscle: Normal right side. Normal left side Deep tendon reflexes: Normal at the biceps. Normal at Brachioradialis. Normal at triceps Vertebral body tenderness to deep palpation over Cervical facet loading test: positive bilaterally Spurling test: positive bilaterally Neck distraction test: positive bilaterally Marcelina sign: positive bilaterally Lumbar spine +R knee diffuse TTP Motor strength lower extremities ,thigh and legs 5/5 Right side , 5/5 Left side Deep tendon reflexes : Normal Knee Jerk. Normal Ankle Jerk Vertebral body tenderness Sandhu Test positive Lumbar facet Loading Test: positive Right / positive Left Range of motion of the lumbar spine Flexion 30 degrees, extension 10 degrees Straight Leg Raise test: Left/ Right positive at 35 degrees Alexandra test: positive right / positive left. Severe tenderness over the Sacroiliac joint on the Right / Left sides Gaenslen test: positive bilaterally Seated flexion test: positive bilaterally. Sacral spine : Severe tenderness over the Sacroiliac joint: right side / left side Range of motion: Flexion of the lumbar spine <60 degrees Range of motion: Extension of the lumbar spine <20 degrees Gaenslen's Test positive Forest's Test positive Alexandra test: positive right side / left side Thigh Thrust Test Sacral Thrust Test Imaging: MRI non contrast of the lumbar spine reviewed Assessment/ Plan : Lumbar DDD Recommendation of medication management and PT x 6 wks M51.36. Percocet 10/325mg #90 w 1 RF. New narcotic agreement signed 07/16/23. UDS fr 03/26/23 reviewed and consistent. All questions answered. I have spent greater than 30 minutes on patient care today. Dr Rivera was available by phone for the evaluation of this patient. The time was used to review the medical records including relevant urine studies and Prescription history (MAPs), review of the available imaging, evaluation and examination of the patient, coordination of care with the medical staff and if applicable referring physicians, as well as creation of the medical record PQRS Narrative: Smoking Status Light tobacco smoker Narcotic Agreement Date Signed 12/04/22 Hx Alcohol Use (MH) No Home Medications: Ambulatory Orders Multivitamin [Men's Multi-Vitamin] 1 tab PO DAILY 08/12/13 Insulin Aspart [NovoLOG Flexpen] See Protocol SQ AC-TID 08/12/21 Insulin Glargine,Hum.rec.anlog [Lantus Solostar Pen] 40 unit SQ BID 08/12/21 Docusate [Colace] 100 mg PO DAILY #30 capsule 08/20/21 Albuterol Inhaler [Ventolin Hfa Inhaler] 1 - 2 puff INHALATION Q6H PRN 01/02/22 Ascorbic Acid [Vitamin C] 500 mg PO DAILY 01/02/22 Empagliflozin [Jardiance] 10 mg PO DAILY 01/02/22 Furosemide [Lasix] 20 mg PO DAILY 01/02/22 Nitroglycerin Sl Tabs [Nitrostat] 0.4 mg SUBLINGUAL Q5M PRN 01/02/22 Omeprazole [PriLOSEC] 10 mg PO DAILY 01/02/22 Rosuvastatin [Crestor] 20 mg PO DAILY 01/02/22 Sacubitril/Valsartan [Entresto 49 mg-51 mg Tablet] 1 each PO DAILY 01/02/22 Spironolactone [Aldactone] 25 mg PO DAILY 01/02/22 Ticagrelor [Brilinta] 90 mg PO BID 01/02/22 Warfarin [Coumadin] 2 mg PO DAILY 01/02/22 carvediloL [Coreg] 3.125 mg PO BID 01/02/22 Ibuprofen [Advil] 400 mg PO Q8HR PRN 30 Days #90 tab 06/19/22 Cyclobenzaprine [Flexeril] 5 mg PO HS PRN 30 Days #60 tab 03/26/23 oxyCODONE HCL/ACETAMINOPHEN [Percocet 10-325 mg] 1 tab PO TID PRN 30 Days #90 tab 09/10/23 oxyCODONE HCL/ACETAMINOPHEN [Percocet 10-325 mg] 1 tab PO TID PRN 30 Days #90 tab 09/10/23 Controlled Substance Measures - Controlled Substance Measures Is patient prescribed a controlled substance at discharge?: Yes When asked, does pt state using other controlled substances?: No If prescribed controlled substance>3 days was MAPS reviewed?: Yes
[2023-09-10 15:21] VITALS: BP 152/71; PULSE 73; RESP 16; TEMP 97.1
== END ==
LOC: PNWHC3 13:35
PROVIDERS: ATTEND Specialist
DX: M51.36 Other intervertebral disc degeneration, lumbar region (principal); F17.200 Nicotine dependence, unspecified, uncomplicated; Z88.8 Allergy status to other drugs, medicaments and biological substances
CPT/HCPCS: 80307; 99212

== ENCOUNTER → 2023-09-16 | Outpatient (CLI) | payer MEDICARE ==
--- NOTE | 2023-09-17 20:12 | CT ---
EXAMINATION TYPE: CT knee RT wo con DATE OF EXAM: 09/16/2023 COMPARISON: None HISTORY: Rt knee pain no injury. CT DLP: 464.2 mGycm Automated exposure control for dose reduction was used. FINDINGS: There is mild osteopenia. There is no fracture or focal intraosseous abnormality. There is mild narrowing of the medial compartment and there is mild hypertrophic spurring consistent with mild osteoarthritis. There is mild hypertrophic spurring of the patellofemoral compartment and lateral compartment but no significant joint space narrowing. There is no joint effusion. IMPRESSION: 1. No acute trauma. 2. Mild osteophytic changes described above. 3. No joint effusion. 4. Mild osteopenia IMPRESSION:
== END | disposition home or self-care (01) ==
LOC: RADCTMAIN 14:00
PROVIDERS: ATTEND Specialist
DX: M17.11 Unilateral primary osteoarthritis, right knee (principal); M85.861 Other specified disorders of bone density and structure, right lower leg

== ENCOUNTER → 2023-09-29 | Outpatient (CLI) | payer MEDICARE ==
[2023-09-29 12:21] VITALS: BP 130/66; PULSE 66; RESP 16; TEMP 97.3
--- NOTE | 2023-09-29 15:02 | P.PAINPG ---
PQRS Measure Charge Sheet Comment: HISTORY OF PRESENT ILLNESS: A 78 yr old male w brother at side presents today w severe and chronic LBP, RLE pain secondary to R hip DJD, R knee DJD, DDD, spondylosis and facet arthropathy without myelopathy for R knee results. Pt states pain level is provoked at 8 /10 in intensity, constant, localized in the lower lumbar spine and R knee, predominantly axial, sharp in character w occasional shooting pain from the lower back towards the back of the RLE. Pain is provoked by over activity. Pain is alleviated by PT x 6 wks in Nov 2022 (lumbar) and PT x 3 wks (R knee) which was stopped in August 2023 due to intractable pain, physician guided stretches daily since August 2023, medications, repositioning and rest. Oswestry axial pain score at 17. Interventional procedures include CONNIE L4-L5 x1, L5-S1 x1 Medications include [place] 5/325mg REVIEW OF ORGAN SYSTEMS: CONSTITUTIONAL: No fevers or chills. No recent weight loss. NEUROLOGICAL: + numbness and tingling along the distal extremities. No seizure disorders or headaches. MUSCULOSKELETAL: + pain PSYCHIATRIC: Denies current depression or suicidal thoughts. Physical Examinations : Constitutional : Cooperative , not in acute distress . Neurologic : Cranial nerve II to XII intact. No focal neurological deficits. Psychiatric : alert & oriented x 3. Matching mood & appropriate affect. Judgment & insight intact. Musculoskeletal : Cervical Spine Motor strength in the deltoid and biceps: Normal right side. Normal Left side Motor strength biceps and the wrist extensors: Normal right side . Normal left side Motor strength in the triceps muscle: Normal right side. Normal left side Deep tendon reflexes: Normal at the biceps. Normal at Brachioradialis. Normal at triceps Vertebral body tenderness to deep palpation over Cervical facet loading test: positive bilaterally Spurling test: positive bilaterally Neck distraction test: positive bilaterally Marcelina sign: positive bilaterally Lumbar spine +R knee diffuse TTP, +R Trendelenburg Motor strength lower extremities ,thigh and legs 5/5 Right side , 5/5 Left side Deep tendon reflexes : Normal Knee Jerk. Normal Ankle Jerk Vertebral body tenderness Sandhu Test positive Lumbar facet Loading Test: positive Right / positive Left Range of motion of the lumbar spine Flexion 30 degrees, extension 10 degrees Straight Leg Raise test: Left/ Right positive at 35 degrees Alexandra test: positive right / positive left. Severe tenderness over the Sacroiliac joint on the Right / Left sides Gaenslen test: positive bilaterally Seated flexion test: positive bilaterally. Sacral spine : Severe tenderness over the Sacroiliac joint: right side / left side Range of motion: Flexion of the lumbar spine <60 degrees Range of motion: Extension of the lumbar spine <20 degrees Gaenslen's Test positive Forest's Test positive Alexandra test: positive right side / left side Thigh Thrust Test Sacral Thrust Test Imaging: MRI non contrast of the lumbar spine reviewed CT non contrast of the R knee from 09/16/23 reviewed Assessment/ Plan : Lumbar DDD, R knee DJD, R hip DJD Recommendation of R hip x ray M16.10. Continue physician guided stretches at home. Has ample supply of Percocet 10/325mg #90 w 1 RF. New narcotic agreement signed 07/16/23. UDS fr 03/26/23 reviewed and consistent. All questions answered. I have spent greater than 30 minutes on patient care today. Dr Rivera was available by phone for the evaluation of this patient. The time was used to review the medical records including relevant urine studies and Prescription history (MAPs), review of the available imaging, evaluation and examination of the patient, coordination of care with the medical staff and if applicable referring physicians, as well as creation of the medical record PQRS Narrative: Smoking Status Light tobacco smoker Narcotic Agreement Date Signed 12/04/22 Hx Alcohol Use (MH) No Home Medications: Ambulatory Orders Multivitamin [Men's Multi-Vitamin] 1 tab PO DAILY 08/12/13 Insulin Aspart [NovoLOG Flexpen] See Protocol SQ AC-TID 08/12/21 Insulin Glargine,Hum.rec.anlog [Lantus Solostar Pen] 40 unit SQ BID 08/12/21 Docusate [Colace] 100 mg PO DAILY #30 capsule 08/20/21 Albuterol Inhaler [Ventolin Hfa Inhaler] 1 - 2 puff INHALATION Q6H PRN 01/02/22 Ascorbic Acid [Vitamin C] 500 mg PO DAILY 01/02/22 Empagliflozin [Jardiance] 10 mg PO DAILY 01/02/22 Furosemide [Lasix] 20 mg PO DAILY 01/02/22 Nitroglycerin Sl Tabs [Nitrostat] 0.4 mg SUBLINGUAL Q5M PRN 01/02/22 Omeprazole [PriLOSEC] 10 mg PO DAILY 01/02/22 Rosuvastatin [Crestor] 20 mg PO DAILY 01/02/22 Sacubitril/Valsartan [Entresto 49 mg-51 mg Tablet] 1 each PO DAILY 01/02/22 Spironolactone [Aldactone] 25 mg PO DAILY 01/02/22 Ticagrelor [Brilinta] 90 mg PO BID 01/02/22 Warfarin [Coumadin] 2 mg PO DAILY 01/02/22 carvediloL [Coreg] 3.125 mg PO BID 01/02/22 Ibuprofen [Advil] 400 mg PO Q8HR PRN 30 Days #90 tab 06/19/22 Cyclobenzaprine [Flexeril] 5 mg PO HS PRN 30 Days #60 tab 03/26/23 oxyCODONE HCL/ACETAMINOPHEN [Percocet 10-325 mg] 1 tab PO TID PRN 30 Days #90 tab 09/10/23 oxyCODONE HCL/ACETAMINOPHEN [Percocet 10-325 mg] 1 tab PO TID PRN 30 Days #90 tab 09/10/23 Controlled Substance Measures - Controlled Substance Measures Is patient prescribed a controlled substance at discharge?: No
== END ==
LOC: PNWHC3 11:54
PROVIDERS: ATTEND Specialist
DX: M51.36 Other intervertebral disc degeneration, lumbar region (principal); M17.11 Unilateral primary osteoarthritis, right knee; M16.11 Unilateral primary osteoarthritis, right hip; F17.200 Nicotine dependence, unspecified, uncomplicated; Z88.8 Allergy status to other drugs, medicaments and biological substances
CPT/HCPCS: 99211

== ENCOUNTER → 2023-09-29 | Outpatient (CLI) | payer MEDICARE ==
--- NOTE | 2023-09-29 13:17 | XR ---
EXAMINATION TYPE: XR Hip Complete RT DATE OF EXAM: 09/29/2023 COMPARISON: None HISTORY: Chronic right hip pain TECHNIQUE: 2 view right hip FINDINGS: Femoral head articulates with the acetabulum. Joint space is preserved. No acute fracture o r dislocation is evident vascular calcification present IMPRESSION: 1. No acute osseous abnormality.
== END | disposition home or self-care (01) ==
LOC: RADXRMAIN 12:48
PROVIDERS: ATTEND Physician Assistant Medical
DX: M16.10 Unilateral primary osteoarthritis, unspecified hip (principal)
CPT/HCPCS: 73502

== ENCOUNTER 2023-10-30 10:30 | Day surgery (SDC) | payer MEDICARE ==
[2023-10-29 08:38] VITALS: BMI 31.6
[2023-10-30 11:02] VITALS: RESP 18; TEMP 97.6
[2023-10-30 11:02] LABS: Glucose,Whole Blood 132 mg/dL (70-110)
[2023-10-30] MEDS ORDERED: methylPREDNISolone ACETATE 80 MG/ML 1 ML VIAL ONE (11:19)
[2023-10-30] MEDS ORDERED: ROPIVACAINE 5MG/ML 20ML VIAL ONE (11:19)
[2023-10-30 11:38] VITALS: BP 143/64; PULSE 84
[2023-10-30 11:38] LABS: Glucose,Whole Blood 132 mg/dL (70-110)
--- NOTE | 2023-10-30 11:59 | P.PCN ---
Description of Procedure: Preprocedure diagnosis. Knee joint osteoarthritis. /Knee joint bursitis. Knee pain. Postprocedure diagnosis. As above. Procedure done. Right knee joint and bursa injection with local anesthetics and steroid under ultrasound guidance. Anesthesia. Local infiltration. In OR, continuous pulse ox, EKG, blood pressure and verbal communication was maintained with the patient. Blood loss. None. Indication. Patient complains of knee joint and periarticular pain. Discussed the procedure and possible complications which may include infection, bleeding nerve damage and exacerbation of pain all of which could be permanent. Discussed alternatives. Patient understands and all questions were answered. Procedure note. After getting consent patient in OR in supine position with a pillow under the knee so that the knee joint is slightly bent. After prepping with chlorhexidine ultrasound probe was over the patella and moved upwards to identify intra-articular compartments. Under ultrasound guidance, a 22-gauge needle attached to a syringe was introduced to the intra-articular compartments from the lateral aspect and after aspiration 8 ml solution was injected which consists of 7 ml of 0.5% ropivacaine mixed with 1 ml of 40 mg Depo-Medrol in the lateral compartment of intra-articular space and bursa on the lateral aspect of the joint. After injection needle was taken out Band-Aid was placed. Disposition. Patient tolerated the procedure well. No complications. Discharged in stable condition from postop area to home.
== END 2023-10-30 12:01 | disposition home or self-care (01) ==
LOC: ORPAIN 10:30
PROVIDERS: ATTEND Pain Medicine Interventional Pain Medicine
DX: M16.11 Unilateral primary osteoarthritis, right hip (principal); M71.161 Other infective bursitis, right knee; E11.9 Type 2 diabetes mellitus without complications; Z79.01 Long term (current) use of anticoagulants; Z95.5 Presence of coronary angioplasty implant and graft; Z79.4 Long term (current) use of insulin
CPT/HCPCS: 20610; J2795; J1010

== ENCOUNTER → 2023-11-05 | Outpatient (CLI) | payer MEDICARE ==
[2023-11-05 13:26] VITALS: BP 158/74; PULSE 78; RESP 16; TEMP 97.6
--- NOTE | 2023-11-05 14:23 | P.PAINPG ---
PQRS Measure Charge Sheet Comment: HISTORY OF PRESENT ILLNESS: A 78 yr old male w brother at side presents today w severe and chronic LBP, RLE pain secondary to R hip DJD, R knee DJD, DDD, spondylosis and facet arthropathy without myelopathy for R knee results. Pt states pain level is provoked at 8 /10 in intensity, constant, localized in the lower lumbar spine and R knee, predominantly axial, sharp in character w occasional shooting pain from the lower back towards the back of the RLE. Pain is provoked by over activity. Pain is alleviated by PT x 6 wks in Nov 2022 (lumbar) and PT x 3 wks (R knee) which was stopped in August 2023 due to intractable pain, physician guided stretches daily since August 2023, medications, repositioning and rest. Oswestry axial pain score at 17. Interventional procedures include CONNIE L4-L5 x1, L5-S1 x1 Medications include [place] 5/325mg REVIEW OF ORGAN SYSTEMS: CONSTITUTIONAL: No fevers or chills. No recent weight loss. NEUROLOGICAL: + numbness and tingling along the distal extremities. No seizure disorders or headaches. MUSCULOSKELETAL: + pain PSYCHIATRIC: Denies current depression or suicidal thoughts. Physical Examinations : Constitutional : Cooperative , not in acute distress . Neurologic : Cranial nerve II to XII intact. No focal neurological deficits. Psychiatric : alert & oriented x 3. Matching mood & appropriate affect. Judgment & insight intact. Musculoskeletal : Cervical Spine Motor strength in the deltoid and biceps: Normal right side. Normal Left side Motor strength biceps and the wrist extensors: Normal right side . Normal left side Motor strength in the triceps muscle: Normal right side. Normal left side Deep tendon reflexes: Normal at the biceps. Normal at Brachioradialis. Normal at triceps Vertebral body tenderness to deep palpation over Cervical facet loading test: positive bilaterally Spurling test: positive bilaterally Neck distraction test: positive bilaterally Marcelina sign: positive bilaterally Lumbar spine +R knee diffuse TTP, +R Trendelenburg Motor strength lower extremities ,thigh and legs 5/5 Right side , 5/5 Left side Deep tendon reflexes : Normal Knee Jerk. Normal Ankle Jerk Vertebral body tenderness Sandhu Test positive Lumbar facet Loading Test: positive Right / positive Left Range of motion of the lumbar spine Flexion 30 degrees, extension 10 degrees Straight Leg Raise test: Left/ Right positive at 35 degrees Alexandra test: positive right / positive left. Severe tenderness over the Sacroiliac joint on the Right / Left sides Gaenslen test: positive bilaterally Seated flexion test: positive bilaterally. Sacral spine : Severe tenderness over the Sacroiliac joint: right side / left side Range of motion: Flexion of the lumbar spine <60 degrees Range of motion: Extension of the lumbar spine <20 degrees Gaenslen's Test positive Forest's Test positive Alexandra test: positive right side / left side Thigh Thrust Test Sacral Thrust Test Imaging: MRI non contrast of the lumbar spine reviewed CT non contrast of the R knee from 09/16/23 reviewed X ray of R Hip from 09/29/23 reviewed Assessment/ Plan : Lumbar DDD, R knee DJD, R hip DJD Recommendation of R hip MRI at this time M16.10. Continue physician guided stretches at home. Refill Percocet 10/325mg #90 w 1 RF. Add Diclofenac gel Disp 1 tube w w RF. Use, side effects, adverse reactions, safe storage discussed. New narcotic agreement signed 07/16/23. UDS fr 03/26/23 reviewed and consistent. All questions answered. I have spent greater than 30 minutes on patient care today. Dr Rivera was available by phone for the evaluation of this patient. The time was used to review the medical records including relevant urine studies and Prescription history (MAPs), review of the available imaging, evaluation and examination of the patient, coordination of care with the medical staff and if applicable referring physicians, as well as creation of the medical record - Pain Location Right Knee Non-Pharmacological Interventions: Stretching Pharmacological Interventions: Block, Epidural, Medication, PRN Medication PQRS Narrative: Smoking Status Light tobacco smoker Narcotic Agreement Date Signed 12/04/22 Hx Alcohol Use (MH) No Home Medications: Ambulatory Orders Multivitamin [Men's Multi-Vitamin] 1 tab PO DAILY 08/12/13 Insulin Aspart [NovoLOG Flexpen] See Protocol SQ AC-TID 08/12/21 Insulin Glargine,Hum.rec.anlog [Lantus Solostar Pen] 40 unit SQ BID 08/12/21 Albuterol Inhaler [Ventolin Hfa Inhaler] 1 - 2 puff INHALATION Q6H PRN 01/02/22 Ascorbic Acid [Vitamin C] 500 mg PO DAILY 01/02/22 Empagliflozin [Jardiance] 10 mg PO DAILY 01/02/22 Furosemide [Lasix] 20 mg PO DAILY 01/02/22 Nitroglycerin Sl Tabs [Nitrostat] 0.4 mg SUBLINGUAL Q5M PRN 01/02/22 Omeprazole [PriLOSEC] 10 mg PO DAILY 01/02/22 Rosuvastatin [Crestor] 20 mg PO DAILY 01/02/22 Sacubitril/Valsartan [Entresto 49 mg-51 mg Tablet] 1 each PO BID 01/02/22 Spironolactone [Aldactone] 25 mg PO DAILY 01/02/22 Ticagrelor [Brilinta] 90 mg PO BID 01/02/22 Warfarin [Coumadin] 2 mg PO DAILY 01/02/22 carvediloL [Coreg] 3.125 mg PO BID 01/02/22 Ibuprofen [Advil] 400 mg PO Q8HR PRN 30 Days #90 tab 06/19/22 Cyclobenzaprine [Flexeril] 5 mg PO HS PRN 30 Days #60 tab 03/26/23 Docusate [Colace] 200 mg PO DAILY 10/13/23 Diclofenac Sodium Gel [Voltaren 1% Gel] 100 gm TOPICAL BID 30 Days #1 each 11/05/23 oxyCODONE HCL/ACETAMINOPHEN [Percocet 10-325 mg] 1 tab PO TID PRN 30 Days #90 tab 11/05/23 oxyCODONE HCL/ACETAMINOPHEN [Percocet 10-325 mg] 1 tab PO TID PRN 30 Days #90 tab 11/05/23 Controlled Substance Measures - Controlled Substance Measures Is patient prescribed a controlled substance at discharge?: Yes When asked, does pt state using other controlled substances?: No If prescribed controlled substance>3 days was MAPS reviewed?: Yes
== END ==
LOC: PNWHC3 13:05
PROVIDERS: ATTEND Specialist
DX: M17.11 Unilateral primary osteoarthritis, right knee (principal); M16.11 Unilateral primary osteoarthritis, right hip; M51.36 Other intervertebral disc degeneration, lumbar region; F17.200 Nicotine dependence, unspecified, uncomplicated; Z88.8 Allergy status to other drugs, medicaments and biological substances
CPT/HCPCS: 99211

== ENCOUNTER → 2023-12-25 | Outpatient (CLI) | payer MEDICARE ==
--- NOTE | 2023-12-31 04:16 | MR ---
EXAMINATION TYPE: MR hip RT wo con DATE OF EXAM: 12/25/2023 COMPARISON: Right hip x-ray September 29, 2023 HISTORY: Rt hip pain, osteoarthritis Standard multiplanar, multisequence MRI departmental protocol Multiplanar, multisequence images of the pelvis focusing on the right hip were acquired without contr ast. FINDINGS: [id number] axial joint space loss and spurring in both hips is present. Femoral head shapes are maintained bilaterally. Tiny bilateral hip effusions are presumed physiologic. No serpigin ous diminished T1 signal to suggest avascular necrosis. No suspicious increased T2 signal to suggest osseous edema. There are prominent but subcentimeter bilateral groin lymph nodes. There are small to moderate-sized fat-containing right inguinal hernia. Muscle bulk in the bilateral thighs is symmetric with mild bilateral atrophy. Urinary bladder appears within normal limits. No free fluid in the pelvis. A few sigmoid colonic dive rticula are seen. There is lower abdominal ventral wall fat-containing hernia partially imaged. IMPRESSION: [id number] degenerative changes of both hips as detailed above. [facility], , 12/31/2023 4:13 AM
== END | disposition home or self-care (01) ==
LOC: RADMRIMAIN 15:12
PROVIDERS: ATTEND Specialist
DX: M16.10 Unilateral primary osteoarthritis, unspecified hip

== ENCOUNTER → 2023-12-31 | Outpatient (CLI) | payer MEDICARE ==
[2023-12-31 13:47] VITALS: BP 150/79; PULSE 76; RESP 18
--- NOTE | 2023-12-31 14:45 | P.PAINPG ---
PQRS Measure Charge Sheet Comment: HISTORY OF PRESENT ILLNESS: A 78 yr old male w brother at side presents today w severe and chronic LBP, RLE pain secondary to R hip DJD, R knee DJD, DDD, spondylosis and facet arthropathy without myelopathy for R knee results. Pt states pain level is provoked at 8 /10 in intensity, constant, localized in the lower lumbar spine and R knee, predominantly axial, sharp in character w occasional shooting pain from the lower back towards the back of the RLE. Pain is provoked by over activity. Pain is alleviated by PT x 6 wks in Nov 2022 (lumbar) and PT x 3 wks (R knee) which was stopped in August 2023 due to intractable pain, physician guided stretches daily since August 2023, medications, repositioning and rest. Interventional procedures include CONNIE L4-L5 x1, L5-S1 x1 Medications include [place] 5/325mg REVIEW OF ORGAN SYSTEMS: CONSTITUTIONAL: No fevers or chills. No recent weight loss. NEUROLOGICAL: + numbness and tingling along the distal extremities. No seizure disorders or headaches. MUSCULOSKELETAL: + pain PSYCHIATRIC: Denies current depression or suicidal thoughts. Physical Examinations : Constitutional : Cooperative , not in acute distress . Neurologic : Cranial nerve II to XII intact. No focal neurological deficits. Psychiatric : alert & oriented x 3. Matching mood & appropriate affect. Judgment & insight intact. Musculoskeletal : Cervical Spine Motor strength in the deltoid and biceps: Normal right side. Normal Left side Motor strength biceps and the wrist extensors: Normal right side . Normal left side Motor strength in the triceps muscle: Normal right side. Normal left side Deep tendon reflexes: Normal at the biceps. Normal at Brachioradialis. Normal at triceps Vertebral body tenderness to deep palpation over Cervical facet loading test: positive bilaterally Spurling test: positive bilaterally Neck distraction test: positive bilaterally Marcelina sign: positive bilaterally Lumbar spine +R knee diffuse TTP, +R Trendelenburg Motor strength lower extremities ,thigh and legs 5/5 Right side , 5/5 Left side Deep tendon reflexes : Normal Knee Jerk. Normal Ankle Jerk Vertebral body tenderness Sandhu Test positive Lumbar facet Loading Test: positive Right / positive Left Range of motion of the lumbar spine Fl exion 30 degrees, extension 10 degrees Straight Leg Raise test: Left/ Right positive at 35 degrees Alexandra test: positive right / positive left. Severe tenderness over the Sacroiliac joint on the Right / Left sides Gaenslen test: positive bilaterally Seated flexion test: positive bilaterally. Sacral spine : Severe tenderness over the Sacroiliac joint: right side / left side Range of motion: Flexion of the lumbar spine <60 degrees Range of motion: Extension of the lumbar spine <20 degrees Gaenslen's Test positive Forest's Test positive Alexandra test: positive right side / left side Thigh Thrust Test Sacral Thrust Test Imaging: MRI non contrast of the lumbar spine reviewed CT non contrast of the R knee from 09/16/23 reviewed X ray of R Hip from 09/29/23 reviewed MRI non contrast of the R hip from 12/25/23 reviewed Assessment/ Plan : Lumbar DDD, R knee DJD, R hip DJD Recommendation of . Continue physician guided stretches at home. Refill Percocet 10/325mg #90 w 1 RF. Use, side effects, adverse reactions, safe storage discussed. New narcotic agreement signed 07/16/23. UDS from 09/10/23 reviewed and consistent. All questions answered. I have spent greater than 30 minutes on patient care today. Dr Rivera was available by phone for the evaluation of this patient. The time was used to review the medical records including relevant urine studies and Prescription history (MAPs), review of the available imaging, evaluation and examination of the patient, coordination of care with the medical staff and if applicable referring physicians, as well as creation of the medical record PQRS Narrative: Smoking Status Light tobacco smoker Narcotic Agreement Date Signed 12/04/22 Hx Alcohol Use (MH) No Home Medications: Ambulatory Orders Multivitamin [Men's Multi-Vitamin] 1 tab PO DAILY 08/12/13 Insulin Aspart [NovoLOG Flexpen] See Protocol SQ AC-TID 08/12/21 Insulin Glargine,Hum.rec.anlog [Lantus Solostar Pen] 40 unit SQ BID 08/12/21 Albuterol Inhaler [Ventolin Hfa Inhaler] 1 - 2 puff INHALATION Q6H PRN 01/02/22 Ascorbic Acid [Vitamin C] 500 mg PO DAILY 01/02/22 Empagliflozin [Jardiance] 10 mg PO DAILY 01/02/22 Furosemide [Lasix] 20 mg PO DAILY 01/02/22 Nitroglycerin Sl Tabs [Nitrostat] 0.4 mg SUBLINGUAL Q5M PRN 01/02/22 Omeprazole [PriLOSEC] 10 mg PO DAILY 01/02/22 Rosuvastatin [Crestor] 20 mg PO DAILY 01/02/22 Sacubitril/Valsartan [Entresto 49 mg-51 mg Tablet] 1 each PO BID 01/02/22 Spironolactone [Aldactone] 25 mg PO DAILY 01/02/22 Ticagrelor [Brilinta] 90 mg PO BID 01/02/22 Warfarin [Coumadin] 2 mg PO DAILY 01/02/22 carvediloL [Coreg] 3.125 mg PO BID 01/02/22 Ibuprofen [Advil] 400 mg PO Q8HR PRN 30 Days #90 tab 06/19/22 Cyclobenzaprine [Flexeril] 5 mg PO HS PRN 30 Days #60 tab 03/26/23 Docusate [Colace] 200 mg PO DAILY 10/13/23 Diclofenac Sodium Gel [Voltaren 1% Gel] 100 gm TOPICAL BID 30 Days #1 each 11/05/23 oxyCODONE HCL/ACETAMINOPHEN [Percocet 10-325 mg] 1 tab PO TID PRN 30 Days #90 tab 12/31/23 oxyCODONE HCL/ACETAMINOPHEN [Percocet 10-325 mg] 1 tab PO TID PRN 30 Days #90 tab 12/31/23 Controlled Substance Measures - Controlled Substance Measures Is patient prescribed a controlled substance at discharge?: Yes When asked, does pt state using other controlled substances?: No If prescribed controlled substance>3 days was MAPS reviewed?: Yes
== END ==
LOC: PNWHC3 13:03
PROVIDERS: ATTEND Specialist
DX: M47.816 Spondylosis without myelopathy or radiculopathy, lumbar region (principal); M51.36 Other intervertebral disc degeneration, lumbar region; M17.11 Unilateral primary osteoarthritis, right knee; M16.11 Unilateral primary osteoarthritis, right hip; F17.200 Nicotine dependence, unspecified, uncomplicated; Z88.8 Allergy status to other drugs, medicaments and biological substances
CPT/HCPCS: 99211

== ENCOUNTER → 2024-03-04 | Outpatient (CLI) | payer MEDICARE ==
[2024-03-04 13:39] VITALS: BP 167/72; PULSE 65; RESP 16
--- NOTE | 2024-03-04 14:21 | P.PAINPG ---
PQRS Measure Charge Sheet Comment: HISTORY OF PRESENT ILLNESS: A 78 yr old male w brother at side presents today w severe and chronic LBP, RLE pain secondary to R hip DJD, R knee DJD, radiculopathy, spondylosis and facet arthropathy without myelopathy for medication refills. Pt states pain level is provoked at 8 /10 in intensity, constant, localized in the lower lumbar spine and R knee, predominantly axial, sharp in character w occasional shooting pain from the lower back towards the back of the RLE. Pain is provoked by over activity. Pain is alleviated by PT x 6 wks in Nov 2022 (lumbar) and PT x 3 wks (R knee) which was stopped in August 2023 due to intractable pain, physician guided stretches daily since August 2023, medications, repositioning and rest. Interventional procedures include CONNIE L4-L5 x1, L5-S1 x1 Medications include [place] 5/325mg REVIEW OF ORGAN SYSTEMS: CONSTITUTIONAL: No fevers or chills. No recent weight loss. NEUROLOGICAL: + numbness and tingling along the distal extremities. No seizure disorders or headaches. MUSCULOSKELETAL: + pain PSYCHIATRIC: Denies current depression or suicidal thoughts. Physical Examinations : Constitutional : Cooperative , not in acute distress . Neurologic : Cranial nerve II to XII intact. No focal neurological deficits. Psychiatric : alert & oriented x 3. Matching mood & appropriate affect. Judgment & insight intact. Musculoskeletal : Cervical Spine Motor strength in the deltoid and biceps: Normal right side. Normal Left side Motor strength biceps and the wrist extensors: Normal right side . Normal left side Motor strength in the triceps muscle: Normal right side. Normal left side Deep tendon reflexes: Normal at the biceps. Normal at Brachioradialis. Normal at triceps Vertebral body tenderness to deep palpation over Cervical facet loading test: positive bilaterally Spurling test: positive bilaterally Neck distraction test: positive bilaterally Marcelina sign: positive bilaterally Lumbar spine +R knee diffuse TTP, +R Trendelenburg Motor strength lower extremities ,thigh and legs 5/5 Right side , 5/5 Left side Deep tendon reflexes : Normal Knee Jerk. Normal Ankle Jerk Vertebral body tenderness Sandhu Test positive Lumbar facet Loading Test: positive Right / positive Left Range of motion of the lumbar spine Flexion 30 degrees, extension 10 degrees Straight Leg Raise test: Left/ Right positive at 35 degrees Alexandra test: positive right / positive left. Severe tenderness over the Sacroiliac joint on the Right / Left sides Gaenslen test: positive bilaterally Seated flexion test: positive bilaterally. Sacral spine : Severe tenderness over the Sacroiliac joint: right side / left side Range of motion: Flexion of the lumbar spine <60 degrees Range of motion: Extension of the lumbar spine <20 degrees Gaenslen's Test positive Forest's Test positive Alexandra test: positive right side / left side Thigh Thrust Test Sacral Thrust Test Imaging: MRI non contrast of the lumbar spine reviewed CT non contrast of the R knee from 09/16/23 reviewed X ray of R Hip from 09/29/23 reviewed MRI non contrast of the R hip from 12/25/23 reviewed Assessment/ Plan : Lumbar radiculopathy, R knee DJD, R hip DJD Recommendation of medication management. Continue physician guided stretches at home. Refill Percocet 10/325mg #90 w 1 RF. Use, side effects, adverse reactions, safe storage discussed. New narcotic agreement signed 07/16/23. UDS from 09/10/23 reviewed and consistent. All questions answered. I have spent greater than 30 minutes on patient care today. Dr Rivera was available by phone for the evaluation of this patient. The time was used to review the medical records including relevant urine studies and Prescription history (MAPs), review of the available imaging, evaluation and examination of the patient, coordination of care with the medical staff and if applicable referring physicians, as well as creation of the medical record PQRS Narrative: Smoking Status Light tobacco smoker Narcotic Agreement Date Signed 12/04/22 Hx Alcohol Use (MH) No Home Medications: Ambulatory Orders Multivitamin [Men's Multi-Vitamin] 1 tab PO DAILY 08/12/13 Insulin Aspart [NovoLOG Flexpen] See Protocol SQ AC-TID 08/12/21 Insulin Glargine,Hum.rec.anlog [Lantus Solostar Pen] 40 unit SQ BID 08/12/21 Albuterol Inhaler [Ventolin Hfa Inhaler] 1 - 2 puff INHALATION Q6H PRN 01/02/22 Ascorbic Acid [Vitamin C] 500 mg PO DAILY 01/02/22 Empagliflozin [Jardiance] 10 mg PO DAILY 01/02/22 Furosemide [Lasix] 20 mg PO DAILY 01/02/22 Nitroglycerin Sl Tabs [Nitrostat] 0.4 mg SUBLINGUAL Q5M PRN 01/02/22 Omeprazole [PriLOSEC] 10 mg PO DAILY 01/02/22 Rosuvastatin [Crestor] 20 mg PO DAILY 01/02/22 Sacubitril/Valsartan [Entresto 49 mg-51 mg Tablet] 1 each PO BID 01/02/22 Spironolactone [Aldactone] 25 mg PO DAILY 01/02/22 Ticagrelor [Brilinta] 90 mg PO BID 01/02/22 Warfarin [Coumadin] 2 mg PO DAILY 01/02/22 carvediloL [Coreg] 3.125 mg PO BID 01/02/22 Ibuprofen [Advil] 400 mg PO Q8HR PRN 30 Days #90 tab 06/19/22 Cyclobenzaprine [Flexeril] 5 mg PO HS PRN 30 Days #60 tab 03/26/23 Docusate [Colace] 200 mg PO DAILY 10/13/23 Diclofenac Sodium Gel [Voltaren 1% Gel] 100 gm TOPICAL BID 30 Days #1 each 11/05/23 oxyCODONE HCL/ACETAMINOPHEN [Percocet 10-325 mg] 1 tab PO TID PRN 30 Days #90 tab 03/04/24 oxyCODONE HCL/ACETAMINOPHEN [Percocet 10-325 mg] 1 tab PO TID PRN 30 Days #90 tab 03/04/24 Controlled Substance Measures - Controlled Substance Measures Is patient prescribed a controlled substance at discharge?: Yes When asked, does pt state using other controlled substances?: No If prescribed controlled substance>3 days was MAPS reviewed?: Yes
== END ==
LOC: PNWHC3 13:16
PROVIDERS: ATTEND Specialist
DX: M16.11 Unilateral primary osteoarthritis, right hip (principal); M17.11 Unilateral primary osteoarthritis, right knee; M54.16 Radiculopathy, lumbar region; F17.200 Nicotine dependence, unspecified, uncomplicated; Z88.8 Allergy status to other drugs, medicaments and biological substances
CPT/HCPCS: 99211

== ENCOUNTER 2024-04-02 11:36 | Day surgery (SDC) | payer MEDICARE ==
[2024-04-01 10:19] VITALS: BMI 31.6
[2024-04-02 12:38] VITALS: RESP 18; TEMP 97.9
[2024-04-02 12:56] LABS: Glucose,Whole Blood 129 mg/dL (70-110)
[2024-04-02 13:10] LABS: INR 2.7 (<1.2); Prothrombin Time 26.8 sec (10.0-12.5)
[2024-04-02] MEDS ORDERED: ROPIVACAINE 5MG/ML 20ML VIAL ONE (13:41)
[2024-04-02] MEDS ORDERED: methylPREDNISolone ACETATE 80 MG/ML 1 ML VIAL ONE (13:41)
--- NOTE | 2024-04-02 14:02 | P.PCN ---
Description of Procedure: Preprocedure diagnosis. Knee joint osteoarthritis. /Knee joint bursitis. Knee pain. Postprocedure diagnosis. As above. Procedure done. Right knee joint injection with local anesthetics and steroid under ultrasound guidance. Anesthesia. Local infiltration. In OR, continuous pulse ox, EKG, blood pressure and verbal communication was maintained with the patient. Blood loss. None. Indication. Patient complains of knee joint and periarticular pain. Discussed the procedure and possible complications which may include infection, bleeding nerve damage and exacerbation of pain all of which could be permanent. Discussed alternatives. Patient understands and all questions were answered. Procedure note. After getting consent patient in OR in supine position with a pillow under the knee so that the knee joint is slightly bent. After prepping with chlorhexidine ultrasound probe was over the patella and moved upwards to identify intra-articular compartments. Under ultrasound guidance, a 22-gauge needle attached to a syringe was introduced to the intra-articular compartments from the lateral aspect and after aspiration 5 ml solution was injected which consists of 4 ml of 0.5% ropivacaine mixed with 1 ml of 80 mg Depo-Medrol. After injection needle was taken out Band-Aid was placed. Disposition. Patient tolerated the procedure well. No complications. Discharged in stable condition from postop area to home.
[2024-04-02 14:18] VITALS: BP 144/78; PULSE 57
== END 2024-04-02 14:35 | disposition home or self-care (01) ==
LOC: ORPAIN 11:36
PROVIDERS: ATTEND Pain Medicine Interventional Pain Medicine
DX: M17.11 Unilateral primary osteoarthritis, right knee (principal); M70.51 Other bursitis of knee, right knee
CPT/HCPCS: 85610; 20610; J2795; J1010

== ENCOUNTER → 2024-05-05 | Outpatient (CLI) | payer MEDICARE ==
[2024-05-05 14:52] VITALS: BP 184/88; PULSE 77; RESP 16; TEMP 97.5
--- NOTE | 2024-05-05 16:42 | P.PAINPG ---
PQRS Measure Charge Sheet Comment: HISTORY OF PRESENT ILLNESS: A 79 yr old male w brother at side presents today w severe and chronic LBP, RLE pain secondary to R hip DJD, R knee DJD, radiculopathy, spondylosis and facet arthropathy without myelopathy for medication refills and R knee injection #2. Pt states he experienced 95% pain relief x 3-4 wks s/p procedure. Pt states pain level is provoked at 8-9 /10 in intensity, constant, localized in the lower lumbar spine and R knee, predominantly axial, sore in character w occasional shooting pain from the lower back towards the back of the RLE. Pain is provoked by over activity. Pain is alleviated by PT x 6 wks in Nov 2022 (lumbar) and PT x 3 wks (R knee) which was stopped in August 2023 due to intractable pain, physician guided stretches daily since August 2023, medications, repositioning and rest. Interventional procedures include CONNIE L4-L5 x1, L5-S1 x1, R knee injection x2 Medications include [place] 5/325mg REVIEW OF ORGAN SYSTEMS: CONSTITUTIONAL: No fevers or chills. No recent weight loss. NEUROLOGICAL: + numbness and tingling along the distal extremities. No seizure disorders or headaches. MUSCULOSKELETAL: + pain PSYCHIATRIC: Denies current depression or suicidal thoughts. Physical Examinations : Constitutional : Cooperative , not in acute distress . Neurologic : Cranial nerve II to XII intact. No focal neurological deficits. Psychiatric : alert & oriented x 3. Matching mood & appropriate affect. Judgment & insight intact. Musculoskeletal : Cervical Spine Motor strength in the deltoid and biceps: Normal right side. Normal Left side Motor strength biceps and the wrist extensors: Normal right side . Normal left side Motor strength in the triceps muscle: Normal right side. Normal left side Deep tendon reflexes: Normal at the biceps. Normal at Brachioradialis. Normal at triceps Vertebral body tenderness to deep palpation over Cervical facet loading test: positive bilaterally Spurling test: positive bilaterally Neck distraction test: positive bilaterally Marcelina sign: positive bilaterally Lumbar spine +R knee diffuse TTP, +R Trendelenburg Motor strength lower extremities ,thigh and legs 5/5 Right side , 5/5 Left side Deep tendon reflexes : Normal Knee Jerk. Normal Ankle Jerk Vertebral body tenderness Sandhu Test positive Lumbar facet Loading Test: positive Right / positive Left Range of motion of the lumbar spine Flexion 30 degrees, extension 10 degrees Straight Leg Raise test: Left/ Right positive at 35 degrees Alexandra test: positive right / positive left. Severe tenderness over the Sacroiliac joint on the Right / Left sides Gaenslen test: positive bilaterally Seated flexion test: positive bilaterally. Sacral spine : Severe tenderness over the Sacroiliac joint: right side / left side Range of motion: Flexion of the lumbar spine <60 degrees Range of motion: Extension of the lumb ar spine <20 degrees Gaenslen's Test positive Forest's Test positive Alexandra test: positive right side / left side Thigh Thrust Test Sacral Thrust Test Imaging: MRI non contrast of the lumbar spine reviewed CT non contrast of the R knee from 09/16/23 reviewed X ray of R Hip from 09/29/23 reviewed MRI non contrast of the R hip from 12/25/23 reviewed Assessment/ Plan : Lumbar radiculopathy, R knee DJD, R hip DJD Recommendation of medication management. Continue physician guided stretches at home. Percocet 10/325mg #90 w [address] [facility]. Use, side effects, adverse reactions, safe storage discussed. New narcotic agreement signed 07/16/23. UDS from 09/10/23 reviewed and consistent. All questions answered. I have spent greater than 30 minutes on patient care today. Dr Rivera was available by phone for the evaluation of this patient. The time was used to review the medical records including relevant urine studies and Prescription history (MAPs), review of the available imaging, evaluation and examination of the patient, coordination of care with the medical staff and if applicable referring physicians, as well as creation of the medical record PQRS Narrative: Smoking Status Light tobacco smoker Narcotic Agreement Date Signed 12/04/22 Hx Alcohol Use (MH) No Home Medications: Ambulatory Orders Multivitamin [Men's Multi-Vitamin] 1 tab PO DAILY 08/12/13 Insulin Aspart [NovoLOG Flexpen] See Protocol SQ AC-TID 08/12/21 Insulin Glargine,Hum.rec.anlog [Lantus Solostar Pen] 40 unit SQ BID 08/12/21 Albuterol Inhaler [Ventolin Hfa Inhaler] 1 - 2 puff INHALATION Q6H PRN 01/02/22 Ascorbic Acid [Vitamin C] 500 mg PO DAILY 01/02/22 Empagliflozin [Jardiance] 10 mg PO DAILY 01/02/22 Furosemide [Lasix] 20 mg PO DAILY 01/02/22 Nitroglycerin Sl Tabs [Nitrostat] 0.4 mg SUBLINGUAL Q5M PRN 01/02/22 Omeprazole [PriLOSEC] 10 mg PO DAILY 01/02/22 Rosuvastatin [Crestor] 20 mg PO DAILY 01/02/22 Sacubitril/Valsartan [Entresto 49 mg-51 mg Tablet] 1 each PO BID 01/02/22 Spironolactone [Aldactone] 25 mg PO DAILY 01/02/22 Ticagrelor [Brilinta] 90 mg PO BID 01/02/22 Warfarin [Coumadin] 2 mg PO DAILY 01/02/22 carvediloL [Coreg] 3.125 mg PO BID 01/02/22 Cyclobenzaprine [Flexeril] 5 mg PO HS PRN 30 Days #60 tab 03/26/23 Docusate [Colace] 200 mg PO DAILY 10/13/23 Diclofenac Sodium Gel [Voltaren 1% Gel] 100 gm TOPICAL BID 30 Days #1 each 11/05/23 oxyCODONE HCL/ACETAMINOPHEN [Percocet 10-325 mg] 1 tab PO TID PRN 30 Days #90 tab 03/04/24 Controlled Substance Measures - Controlled Substance Measures Is patient prescribed a controlled substance at discharge?: No
== END ==
LOC: PNWHC3 12:08
PROVIDERS: ATTEND Specialist
DX: M17.11 Unilateral primary osteoarthritis, right knee (principal); M54.16 Radiculopathy, lumbar region; M16.11 Unilateral primary osteoarthritis, right hip; F17.210 Nicotine dependence, cigarettes, uncomplicated; Z88.8 Allergy status to other drugs, medicaments and biological substances
CPT/HCPCS: 99211